=== PATIENT | male | born 1955 | race Caucasian/White ===

== ENCOUNTER 2017-09-25 18:13 | Emergency (ER) | payer SELFPAY ==
[2017-09-25 19:09] LABS: Hemoglobin 14.2 g/dL (14.0-18.0); Mean Corpuscular HGB CONC 34.2 g/dL (32.0-36.0); Mean Corpuscular Hemoglobin 37.1 pg (27.0-31.0); Mean Platelet Volume 6.8 fL (7.4-10.4); Platelet Count 156 thou/uL (130-400); Red Blood Cell (RBC) Count 3.83 mill/uL (4.70-6.10)
[2017-09-25 19:19] LABS: Bilirubin Negative (Negative); Blood, Urine Small (Negative); Clarity CLEAR (Clear); Glucose, Urine (Dipstick) Negative (Negative); Leukocyte Negative (Negative); Nitrite Negative (Negative); Protein, Urine (Dipstick) Negative (Neg-Trace); Specific Gravity, Urine 1.012 (1.002-1.036); Urobilinogen 0.2 mg/dL (0.2-1.0)
[2017-09-25 19:27] LABS: ALT (SGPT) 29 U/L (8-55); AST (SGOT) 40 U/L (5-34); Albumin 3.9 g/dL (3.4-4.8); Alkaline Phosphatase 116 U/L (40-150); Anion Gap 14 mmol/L (10-20); BUN (Urea Nitrogen) 6 mg/dL (8.4-25.7); Bilirubin, Total 0.7 mg/dL (0.2-1.2); CK (CPK) 180 U/L (30-200); Calc. Creatinine Clearance 0 mL/min (70-130); Calcium 8.7 mg/dL (7.8-10.44); Carbon Dioxide 25 mmol/L (23-31); Chloride 97 mmol/L (98-107); Eosinophils 2 % (0-10); Estimated GFR-MDRD Greater than 90; Globulin 2.9 g/dL (2.4-3.5); Glucose 108 mg/dL (80-115); Lipase 150 U/L (8-78); Lymphocytes 51 % (21-51); MDiff Complete? YES; Macrocytosis SLIGHT = 6-15 cells (100X) (0-5/hpf); Monocytes 3 % (0-10); Neutrophil 42 % (42-75); PLT Morphology Comment Appears Adequate; Potassium 3.7 mmol/L (3.5-5.1); Protein, Total 6.8 g/dL (5.8-8.1); Reactive Lymphocytes 2 % (0-10); Sodium 132 mmol/L (136-145)
[2017-09-25 19:31] LABS: RBC/HPF None Seen HPF (0-3); WBC/HPF None Seen HPF (0-3)
[2017-09-25 19:31] LABS: CKMB 5.2 ng/mL (0-6.6); Troponin I Less than 0.010 ng/mL (< 0.028)
[2017-09-25 19:32] LABS: Bacteria/HPF None Seen HPF (None Seen); Hyaline Casts/LPF NONE SEEN LPF (0-3 Hyaline); Squamous Epithelial 0-3 HPF (0-3)
--- NOTE | 2017-09-25 23:57 | RAD ---
PORTABLE CHEST ONE VIEW 09/25/17 at 11:43 p.m. HISTORY: Cough. FINDINGS: Comparison made with exam 12/01/16. The heart size is normal. The lungs are well expanded without focal areas of consolidation, pneumotho rax or pleural effusions. There are old left sided rib fractures. IMPRESSION: No acute process. POS: H
--- NOTE | 2017-10-13 22:42 | EKG ---
Test Reason : Blood Pressure : / mmHG Vent. Rate : 090 BPM Atrial Rate : 090 BPM P-R Int : 152 ms QRS Dur : 082 ms QT Int : 358 ms P-R-T Axes : 050 028 015 degrees QTc Int : 437 ms Normal sinus rhythm Normal ECG Confirmed by CELINA PRESTON ([id number]), market editor ROLAND MENDOZA ([id number]) on 10/13/2017 10:40:55 PM Referred By: Confirmed By:CELINA PRESTON
== END 2017-09-26 00:10 | disposition home or self-care (01) ==
LOC: ERS 18:13
DX: R55 Syncope and collapse (principal); F10.129 Alcohol abuse with intoxication, unspecified; F17.210 Nicotine dependence, cigarettes, uncomplicated; Y90.8 Blood alcohol level of 240 mg/100 ml or more
CPT/HCPCS: 36415; 71045; 80053; 81003; 81015; 82553; 83690; 84484; 85025; 93005; 94640; J7620

== ENCOUNTER 2017-10-05 16:00 | Outpatient (CLI) | payer SELFPAY | END 2017-10-05 16:01 | disposition home or self-care (01) | LOC: BICRAD 16:00 | PROVIDERS: ATTEND Internal Medicine | DX: Z02.71 Encounter for disability determination (principal); M47.896 Other spondylosis, lumbar region; I70.90 Unspecified atherosclerosis | CPT/HCPCS: 72100 ==

== ENCOUNTER 2018-02-20 09:23 | Emergency (ER) | payer SELFPAY ==
[2018-02-20 12:21] LABS: #Lymphocytes 2.4 thou/uL (1.20-3.40); #Monocytes 0.6 thou/uL (0.11-0.59); #Neutrophils 4.6 thou/uL (1.40-6.50); %Basophils 0.1 % (0.0-1.0); %Eosinophils 0.2 % (0.0-10.0); %Lymphocytes 31.4 % (21.0-51.0); %Monocytes 8.1 % (0.0-10.0); %Neutrophils 60.2 % (42.0-75.0); Hemoglobin 14.1 g/dL (14.0-18.0); Mean Corpuscular HGB CONC 34.3 g/dL (32.0-36.0); Mean Corpuscular Hemoglobin 34.6 pg (27.0-31.0); Mean Platelet Volume 7.4 fL (7.4-10.4); PLT Morphology Comment Appears Decreased; Platelet Count 77 thou/uL (130-400); RBC Distribution Width 13.1 % (11.5-14.5); RBC Morphology Normal; Red Blood Cell (RBC) Count 4.07 mill/uL (4.70-6.10); White Blood Cell (WBC) Count 7.7 thou/uL (4.8-10.8)
[2018-02-20 12:23] LABS: Bilirubin Negative (Negative); Blood, Urine Moderate (Negative); Clarity CLEAR (Clear); Glucose, Urine (Dipstick) Negative (Negative); Leukocyte Negative (Negative); Nitrite Negative (Negative); Protein, Urine (Dipstick) Negative (Neg-Trace); Specific Gravity, Urine 1.006 (1.002-1.036); Urobilinogen 0.2 mg/dL (0.2-1.0); pH, Urine 6.5 (5.0-9.0)
[2018-02-20 12:28] LABS: ALT (SGPT) 29 U/L (8-55); AST (SGOT) 51 U/L (5-34); Albumin 4.3 g/dL (3.4-4.8); Alkaline Phosphatase 158 U/L (40-150); Anion Gap 16 mmol/L (10-20); BUN (Urea Nitrogen) Less than 4 mg/dL (8.4-25.7); Bilirubin, Total 1.3 mg/dL (0.2-1.2); CK (CPK) 259 U/L (30-200); Calc. Creatinine Clearance 0 mL/min (70-130); Calcium 8.9 mg/dL (7.8-10.44); Carbon Dioxide 22 mmol/L (23-31); Chloride 95 mmol/L (98-107); Estimated GFR-MDRD Greater than 90; Globulin 3.2 g/dL (2.4-3.5); Glucose 110 mg/dL (80-115); Lipase 78 U/L (8-78); Protein, Total 7.5 g/dL (5.8-8.1); Sodium 130 mmol/L (136-145)
[2018-02-20 12:57] LABS: RBC/HPF None Seen HPF (0-3); Squamous Epithelial None Seen HPF (0-3); Transitional Epithelial NONE SEEN HPF (0-3); WBC/HPF None Seen HPF (0-3)
[2018-02-20 12:58] LABS: Bacteria/HPF None Seen HPF (None Seen); Hyaline Casts/LPF NONE SEEN LPF (0-3 Hyaline)
--- NOTE | 2018-02-20 13:05 | CT ---
CT LUMBAR SPINE NONCONTRAST: HISTORY: Worsening low back pain. FINDINGS: Minimal superior endplate depression at the L1 level has the appearance of a chronic process. No acu te fracture-dislocation. AP alignment is maintained. There is leftward convex rotatory scoliotic cu rvature on the coronal images. Prominent osteophytosis is present throughout the vertebral bodies an d facets. There is disk space narrowing and gas disk phenomenon at each level, with the exception of the lumbosacral junction. Central canal stenosis is most severe at the L4-L5 level. Foraminal sten oses are most severe on the right, at the L2-L3, L3-L4, and L4-L5 levels, and on the left, at the L3- L4 and L4-L5 levels. Calcification is apparent within the arterial structures. IMPRESSION: 1. Prominent degenerative changes of the lumbar spine, including severe central canal and foraminal stenosis. No evidence of acute compression injury. 2. Atherosclerosis. POS: YOSHI
== END 2018-02-20 13:05 | disposition home or self-care (01) ==
LOC: ERS 09:23
DX: M48.00 Spinal stenosis, site unspecified (principal); N39.43 Post-void dribbling; Z71.6 Tobacco abuse counseling; F17.290 Nicotine dependence, other tobacco product, uncomplicated
CPT/HCPCS: 36415; 51701; 72131; 80053; 81003; 81015; 82550; 83690; 85025; 99406

== ENCOUNTER 2018-03-22 17:55 | Inpatient (IN) | payer SELFPAY ==
[2018-03-22 19:03] LABS: Hemoglobin 12.2 g/dL (14.0-18.0); Mean Corpuscular HGB CONC 35.2 g/dL (32.0-36.0); Mean Corpuscular Hemoglobin 36.6 pg (27.0-31.0); Mean Platelet Volume 7.6 fL (7.4-10.4); Platelet Count 122 thou/uL (130-400); RBC Distribution Width 13.4 % (11.5-14.5); Red Blood Cell (RBC) Count 3.33 mill/uL (4.70-6.10); White Blood Cell (WBC) Count 20.6 thou/uL (4.8-10.8)
[2018-03-22] MEDS ORDERED: Piperacillin/Tazobactam 4.5 GM VIAL ONE (19:15)
[2018-03-22 19:20] LABS: ALT (SGPT) 18 U/L (8-55); AST (SGOT) 34 U/L (5-34); Albumin 3.2 g/dL (3.4-4.8); Alkaline Phosphatase 85 U/L (40-150); Anion Gap 16 mmol/L (10-20); BUN (Urea Nitrogen) 30 mg/dL (8.4-25.7); Bilirubin, Total 0.8 mg/dL (0.2-1.2); Calc. Creatinine Clearance 0 mL/min (70-130); Calcium 8.4 mg/dL (7.8-10.44); Carbon Dioxide 19 mmol/L (23-31); Chloride 84 mmol/L (98-107); Estimated GFR-MDRD 42; Globulin 3.2 g/dL (2.4-3.5); Glucose 106 mg/dL (80-115); Protein, Total 6.4 g/dL (5.8-8.1)
[2018-03-22 19:22] LABS: Band 18 % (5-11); Lymphocytes 1 % (21-51); MDiff Complete? YES; Monocytes 3 % (0-10); Neutrophil 77 % (42-75); PLT Morphology Comment Appears Decreased; Reactive Lymphocytes 1 % (0-10); Vacuoles SLIGHT
[2018-03-22 19:23] LABS: Potassium 2.4 mmol/L (3.5-5.1); Sodium 117 mmol/L (136-145)
[2018-03-22] MEDS ORDERED: Potassium Chloride 20 MEQ TAB ONE (19:39)
[2018-03-22] MEDS ORDERED: Clindamycin/D5W 900 mg/50 ml Premix Bag ONE (19:52)
[2018-03-22 22:55] LABS: Lactic Acid 2.4 mmol/L (0.5-2.2)
[2018-03-22] MEDS ORDERED: Diazepam 5 MG TAB PO PRN (23:26)
[2018-03-22] MEDS ORDERED: Diazepam 5 MG TAB PO SCH (23:30)
[2018-03-22] MEDS ORDERED: Thiamine HCl 200 MG/2 ML VIAL IM SCH (23:30)
[2018-03-22] MEDS ORDERED: Ondansetron HCl/PF 4 MG/2 ML Vial IVP PRN (23:53)
[2018-03-22] MEDS ORDERED: Piperacillin/Tazobactam 3.375 GM in Sodium Chloride 0.9% 100 ML IVPB SCH (23:59)
[2018-03-23] MEDS ORDERED: Potassium Chloride 20 MEQ TAB PO SCH ×2 (00:30→05:30)
[2018-03-23] MEDS: Acetaminophen 325 MG TAB PO PRN ×3 (00:46→20:45)
[2018-03-23] MEDS: Sodium Chloride 0.9% 1,000 ML IV SCH ×2 (01:20→23:10)
[2018-03-23] MEDS ORDERED: Diazepam 5 MG TAB PO PRN (04:00)
[2018-03-23] MEDS: Piperacillin/Tazobactam 3.375 GM in Sodium Chloride 0.9% 100 ML IVPB SCH ×4 (04:19→20:45)
[2018-03-23 04:22] LABS: Anisocytosis SLIGHT = 6-15 cells (100X) (0-5/hpf); Band 26 % (5-11); Hemoglobin 11.1 g/dL (14.0-18.0); Lymphocytes 5 % (21-51); MDiff Complete? YES; Mean Corpuscular HGB CONC 34.6 g/dL (32.0-36.0); Mean Corpuscular Hemoglobin 36.4 pg (27.0-31.0); Mean Platelet Volume 8.2 fL (7.4-10.4); Metamyelocyte 2 % (0-0); Monocytes 10 % (0-10); Neutrophil 57 % (42-75); PLT Morphology Comment Appears Decreased; Platelet Count 113 thou/uL (130-400); RBC Distribution Width 13.6 % (11.5-14.5); Red Blood Cell (RBC) Count 3.05 mill/uL (4.70-6.10); White Blood Cell (WBC) Count 18.6 thou/uL (4.8-10.8)
[2018-03-23 04:23] LABS: Anion Gap 12 mmol/L (10-20); Anion Gap 13 mmol/L (10-20); BUN (Urea Nitrogen) 27 mg/dL (8.4-25.7); Bilirubin, Direct 0.7 mg/dL (0.1-0.3); Calc. Creatinine Clearance 79 mL/min (70-130); Calcium 7.9 mg/dL (7.8-10.44); Carbon Dioxide 20 mmol/L (23-31); Chloride 91 mmol/L (98-107); Estimated GFR-MDRD 64; Glucose 108 mg/dL (80-115); Glucose 109 mg/dL (80-115); Magnesium 1.2 mg/dL (1.6-2.6); Sodium 120 mmol/L (136-145); Sodium 121 mmol/L (136-145)
[2018-03-23 04:38] LABS: Potassium 2.9 mmol/L (3.5-5.1)
--- NOTE | 2018-03-23 04:50 | HP ---
CODE STATUS: Patient is a FULL CODE. PRIMARY CARE PHYSICIAN: The patient goes to the [facility]. TIME OF EVALUATION: 9:00 p.m. CHIEF COMPLAINT: Left upper arm swelling and pain. HISTORY OF PRESENT ILLNESS: This is a 62-year-old male patient with past medical history of depression, alcohol abuse, who came to the hospital after having left upper extremity swelling, associated with pain, decreased range of motion, swelling, redness. Patient also has blisters and excoriations on that area, he reported that he had symptoms for the past few days. He tried to cure it by himself, but it did not get better. For that reason, he was taken to the hospital. Symptoms are severe. REVIEW OF SYSTEMS: Constitutional: No fever, no chills, generalized weakness. Respiratory: No cough, no sputum production. Cardiovascular: No chest pain , palpitations, shortness of breath. Gastrointestinal: No nausea, no vomiting , diarrhea or abdominal pain. SWINE EXTENSION FIELD SPECIALIST: No dizziness, headache, lightheaded. Genitourinary: No burning with urination. Extremities: The patient has left upper extremity swelling, redness, decreased range of motion, tenderness. All other systems reviewed were negative except for the findings mentioned above. PAST MEDICAL HISTORY: No significant medical history reported. FAMILY HISTORY: Father in an accident, had a history of COPD; mother unknown. SURGICAL HISTORY: History of tonsillectomy. PSYCHIATRIC HISTORY: Depression. SOCIAL HISTORY: Drinks every day, less than 5 drinks per day. Patient smoked on a daily basis, drinks socially, rarely. DRUG ALLERGIES: No known drug allergies. REPORTED MEDICATIONS: Tylenol. PHYSICAL EXAMINATION: VITAL SIGNS: On presentation, blood pressure 102/61, heart rate 118, respiratory rate was 18, temperature: 97.7. GENERAL: Patient is alert, oriented, not in acute distress. HEENT: Eyes, Normal conjunctivae, moist oral mucosa, anicteric. NECK: No JVD. RESPIRATORY: Bilateral air entry. No rales. No wheezes or medication management. CARDIOVASCULAR: Normal rate, regular rhythm. No murmurs, no gallop. No edema. ABDOMEN: Soft, normal bowel sounds. MUSCULOSKELETAL: Baseline range of motion and strength. No tenderness. SKIN: Warm and intact without rash except for the left upper extremity that has significant swelling, redness, blisters, tenderness, decreased range of motion in that extremity. NEUROLOGIC: Baseline sensory. No evidence of any new focal weakness. Sensation in the arm is preserved. Cranial nerves seem to be intact. PSYCHIATRIC: No anxiety. Oriented, optimal judgment. LABORATORY DATA: Reviewed. The patient had a white count of 20, hemoglobin 12 , MCV 104, platelet count 122, neutrophils 77, bands 18. Sodium 117, potassium 2.4, chloride 84, carbon dioxide was 19, anion gap 16, BUN 30, creatinine 1.65 when compared with previous values on records. It is very elevated, initially was 0.6, BUN 30. Lactic acid initially 2.6 and down to 2.4 after initial treatment. ASSESSMENT AND PLAN: The patient was placed in the hospital with the following medical problems. 1. Sepsis. The patient has white count of 20. Patient has tachycardia as well as left upper extremity cellulitis. We will treat with broad spectrum antibiotics, follow cultures,adjust treatment as per sensitivity. 2. Left upper extremity cellulitis, has been present for the past few days, we will cover with broad spectrum antibiotics. 3. History of alcohol abuse, but patient initially refused it. He now admits he drinks 4 beers every day. We will put the patient and daily watch for alcohol withdrawal. 4. Severe hyponatremia with sodium of 117. He has no symptoms, likely this is chronic and we will start hydration and attempt to correct the sodium at a rate of 6 mEq in 24 hours. We will monitor BMP q.6h. 5. Moderate hypokalemia, potassium 2.4, replace electrolytes as needed, likely due to chronic alcoholism. 6. Acute kidney injury with creatinine 1.65, the last one was 0.6. Likely due to dehydration, we will hydrate, we will monitor, we will treat accordingly. We will monitor kidney function, if not improving, might need Nephrology for evaluation. 7. Lactic acidosis likely secondary to sepsis might be also secondary underlying undiagnosed cirrhosis from alcoholism that remains as a possibility. We will treat the underlying condition. 8. Deep venous thrombosis prophylaxis. MTDD
[2018-03-23 05:19] LABS: Amphetamine Not Detected (NotDetected); Barbiturates Screen Not Detected (NotDetected); Benzodiazepine Screen Not Detected (NotDetected); Cocaine Metabolite Screen Not Detected (NotDetected); Medtox Control Line Valid? VALID (VALID); Medtox Reader # READER 4; Methadone Not Detected (NotDetected); Methamphetamine Not Detected (NotDetected); Opiate Screen Not Detected (NotDetected); Oxycodone Screen Not Detected (NotDetected); Phencyclidine (PCP) Not Detected (NotDetected); THC/Cannabinoid Screen Not Detected (NotDetected); Tricyclic Screen Not Detected (NotDetected)
[2018-03-23 05:30] LABS: Syphilis Antibody Nonreactive (Nonreactive); Syphilis Antibody Index 0.02 S/CO (<1.00 Non-Reactive)
[2018-03-23] MEDS ORDERED: Magnesium Sulfate 2 GM in Sodium Chloride 0.9% 100 ML IVPB SCH (05:30)
[2018-03-23] MEDS: Folic Acid 1 MG TAB PO SCH (09:29)
[2018-03-23] MEDS: Magnesium Oxide 400 MG TAB PO SCH (09:29)
[2018-03-23] MEDS: Multivitamin W/ Minerals 1 TAB PO SCH (09:29)
[2018-03-23] MEDS: Vancomycin HCl 1.5 GM in Sodium Chloride 0.9% 250 ML 300 ML IVPB SCH (09:31)
[2018-03-23 09:57] LABS: Anion Gap 14 mmol/L (10-20); BUN (Urea Nitrogen) 24 mg/dL (8.4-25.7); Calc. Creatinine Clearance 88 mL/min (70-130); Calcium 8.4 mg/dL (7.8-10.44); Carbon Dioxide 19 mmol/L (23-31); Chloride 93 mmol/L (98-107); Estimated GFR-MDRD 72; Glucose 94 mg/dL (80-115); Potassium 3.6 mmol/L (3.5-5.1); Sodium 122 mmol/L (136-145)
--- NOTE | 2018-03-23 13:33 | PDOC.PN ---
- Subjective Encounter Start Date: 03/23/18 Encounter Start Time: 07:40 Pt seen for followup re: sepsis. Denies chest pain, shortness of breath, fevers or chills. No nausea or vomiting. - Objective Resuscitation Status: Resuscitation Status FULL:Full Resuscitation MAR Reviewed: Yes Vital Signs & Weight: Vital Signs (12 hours) Temp Pulse Resp BP BP Pulse Ox 03/23/18 08:00 97.7 F 98 16 100/56 L 99 03/23/18 04:00 98.3 F 102 H 20 94/61 94/61 95 Weight Admit Weight 186 lb 6.4 oz Weight 185 lb 12.8 oz I&O: 03/22/18 03/23/18 03/24/18 06:59 06:59 06:59 Intake Total 1181 Output Total 200 Balance 981 Result Diagrams: 03/23/18 03:42 03/23/18 09:22 EKG Reviewed by me: Yes (Tele: sinus tachycardia) Phys Exam - Physical Examination Constitutional: NAD HEENT: moist MMs, sclera anicteric, oral pharynx no lesions, 2+ tonsils Neck: no nodes, no JVD, supple, full ROM Respiratory: no wheezing, no rales, no rhonchi, clear to auscultation bilateral Cardiovascular: RRR, no rub S1, S2 Gastrointestinal: soft, non-tender, no distention, positive bowel sounds Neurological: moves all 4 limbs Psychiatric: normal affect Deviation from normal: Oriented to person and place, not to time Deviation from normal: L forearm cellulitis Dx/Plan (1) Sepsis Code(s): A41.9 - SEPSIS, UNSPECIFIED ORGANISM Status: Acute Comment: likely due to cellulitis (2) Cellulitis Code(s): L03.90 - CELLULITIS, UNSPECIFIED Status: Acute Comment: continue IV antibiotics as below (3) Hyponatremia Code(s): E87.1 - HYPO-OSMOLALITY AND HYPONATREMIA Status: Acute Comment: Improving, continue IV fluids as below, continue to monitor lytes (4) Hypomagnesemia Code(s): E83.42 - HYPOMAGNESEMIA Status: Acute Comment: replace magnesium (5) Hypokalemia Code(s): E87.6 - HYPOKALEMIA Status: Resolved (6) GIANNA (acute kidney injury) Code(s): N17.9 - ACUTE KIDNEY FAILURE, UNSPECIFIED Status: Resolved - Plan * . Review of Systems - Review of Systems Constitutional: negative: fever, chills, sweats, weakness, malaise Respiratory: negative: Cough, Shortness of Breath, SOB with Excertion, Pleuritic Pain, Wheezing Cardiovascular: negative: chest pain, palpitations, orthopnea, paroxysmal nocturnal dyspnea, edema, light headedness Gastrointestinal: negative: Nausea, Vomiting, Abdominal Pain, Diarrhea, Constipation, Melena, Hematochezia Genitourinary: negative: Dysuria, Frequency, Incontinence, Hematuria, Retention Skin: Rash. negative: Lesions, Jean, Bruising Neurological: negative: Weakness, Numbness, Incoordination, Change in Speech, Confusion, Seizures - Medications/Allergies Allergies/Adverse Reactions: Allergies Allergy/AdvReac Type Severity Reaction Status Date / Time No Known Drug Allergies Allergy Verified 03/22/18 23:06 Medications: Current Medications Acetaminophen (Tylenol) 650 mg PO Q4H PRN PRN Reason: Headache/Fever or Pain Last Admin: 03/23/18 09:30 Dose: 650 mg Albuterol/Ipratropium (Duoneb) 3 ml NEB Q4H PRN PRN Reason: WHEEZE/DYSPNEA Last Admin: 03/22/18 23:34 Dose: 3 ml Diazepam (Valium) 5 mg PO Q4H PRN PRN Reason: FOR ASE 10 OR GREATER Folic Acid (Folvite) 1 mg PO DAILY [facility] Last Admin: 03/23/18 09:29 Dose: 1 mg Sodium Chloride (Normal Saline 0.9%) 1,000 mls @ 75 mls/hr IV .[id number] [facility] Last Admin: 03/23/18 01:20 Dose: 1,000 mls Vancomycin HCl 1.5 gm/ Sodium (Chloride) 300 mls @ 200 mls/hr IVPB 0900 [facility] Last Admin: 03/23/18 09:31 Dose: 300 mls Piperacillin Sod/Tazobactam (Sod 3.375 gm/ Sodium Chloride) 100 mls @ 200 mls/ hr IVPB 0300,0900,1500,2100 [facility] Last Admin: 03/23/18 09:30 Dose: 100 mls Iron/Minerals/Multivitamins (Theragran M) 1 tab PO DAILY [facility] Last Admin: 03/23/18 09:29 Dose: 1 tab Magnesium Oxide (Magnesium Oxide) 400 mg PO DAILY [facility] Last Admin: 03/23/18 09:29 Dose: 400 mg Ondansetron HCl (Zofran) 4 mg IVP Q6H PRN PRN Reason: Nausea/Vomiting Thiamine HCl (Thiamine) 100 mg PO DAILY [facility] Last Admin: 03/23/18 09:30 Dose: 100 mg
[2018-03-23 15:48] LABS: Anion Gap 13 mmol/L (10-20); BUN (Urea Nitrogen) 22 mg/dL (8.4-25.7); Calc. Creatinine Clearance 96 mL/min (70-130); Calcium 8.3 mg/dL (7.8-10.44); Carbon Dioxide 20 mmol/L (23-31); Chloride 98 mmol/L (98-107); Estimated GFR-MDRD 80; Glucose 122 mg/dL (80-115); Potassium 3.5 mmol/L (3.5-5.1); Sodium 127 mmol/L (136-145)
[2018-03-23 21:48] LABS: Anion Gap 14 mmol/L (10-20); BUN (Urea Nitrogen) 19 mg/dL (8.4-25.7); Calc. Creatinine Clearance 104 mL/min (70-130); Carbon Dioxide 17 mmol/L (23-31); Chloride 101 mmol/L (98-107); Estimated GFR-MDRD 88; Glucose 135 mg/dL (80-115); Potassium 3.6 mmol/L (3.5-5.1); Sodium 128 mmol/L (136-145)
[2018-03-24] MEDS: Acetaminophen 325 MG TAB PO PRN (02:32)
[2018-03-24] MEDS: Piperacillin/Tazobactam 3.375 GM in Sodium Chloride 0.9% 100 ML IVPB SCH ×2 (03:40→08:19)
[2018-03-24] MEDS: Sodium Chloride 0.9% 1,000 ML IV SCH ×2 (03:44→17:47)
[2018-03-24 05:21] LABS: Anion Gap 10 mmol/L (10-20); BUN (Urea Nitrogen) 14 mg/dL (8.4-25.7); Calc. Creatinine Clearance 117 mL/min (70-130); Calcium 8.1 mg/dL (7.8-10.44); Carbon Dioxide 19 mmol/L (23-31); Chloride 103 mmol/L (98-107); Estimated GFR-MDRD Greater than 90; Glucose 108 mg/dL (80-115); Potassium 3.2 mmol/L (3.5-5.1); Sodium 129 mmol/L (136-145)
[2018-03-24] MEDS: Folic Acid 1 MG TAB PO SCH (08:19)
[2018-03-24] MEDS: Magnesium Oxide 400 MG TAB PO SCH (08:19)
[2018-03-24] MEDS: Multivitamin W/ Minerals 1 TAB PO SCH (08:19)
[2018-03-24 09:02] LABS: Vancomycin, Trough 9.6 ug/mL
[2018-03-24 09:19] LABS: Band 25 % (5-11); Hemoglobin 11.7 g/dL (14.0-18.0); Lymphocytes 7 % (21-51); MDiff Complete? YES; Macrocytosis SLIGHT = 6-15 cells (100X) (0-5/hpf); Mean Corpuscular HGB CONC 33.8 g/dL (32.0-36.0); Mean Corpuscular Hemoglobin 36.3 pg (27.0-31.0); Mean Platelet Volume 7.8 fL (7.4-10.4); Monocytes 5 % (0-10); Neutrophil 63 % (42-75); PLT Morphology Comment Appears Adequate; Platelet Count 156 thou/uL (130-400); RBC Distribution Width 13.9 % (11.5-14.5); Red Blood Cell (RBC) Count 3.21 mill/uL (4.70-6.10); White Blood Cell (WBC) Count 23.3 thou/uL (4.8-10.8)
[2018-03-24] MEDS ORDERED: Potassium Chloride 20 MEQ TAB PO SCH (10:00)
[2018-03-24] MEDS: Vancomycin HCl 1.5 GM in Sodium Chloride 0.9% 250 ML 300 ML IVPB SCH (11:09)
[2018-03-24] MEDS ORDERED: Ondansetron HCl/PF 4 MG/2 ML Vial IVP PRN (12:26)
--- NOTE | 2018-03-24 12:36 | RAD ---
CHEST 1 VIEW: COMPARISON: 09/25/17. HISTORY: Not provided. FINDINGS: Normal cardiac silhouette. Lungs and pleural spaces are clear. No pneumothorax. Chronic changes to the anterior left and posterior left ribs. IMPRESSION: No acute cardiopulmonary process. POS: GRAY
[2018-03-24] MEDS ORDERED: Fentanyl 100 MCG/2 ML VIAL ONE (13:09)
--- NOTE | 2018-03-24 14:20 | PRG ---
DATE OF SERVICE: 03/24/2018 SUBJECTIVE: The patient is seen and examined at the bedside. He had two big pauses on his cardiac f unction this morning when he was drinking his coffee and he had one pause, which lasted about 6 secon ds and the other one was 2.9 seconds. He complains about pain in his left upper extremity. OBJECTIVE: VITAL SIGNS: Blood pressure is 145/57, pulse is 87, respiratory rate is 20, and O2 saturation is 100 %. HEENT: Head is atraumatic, normocephalic. Eyes are PERRLA. Conjunctivae pink. Oral mucosa is mois t. NECK: Supple. LUNGS: Clear. HEART: S1 and S2 normal. No S3 or S4. ABDOMEN: Soft, distended. Bowel sounds are present, no organomegaly. EXTREMITIES: His left upper extremity swollen is blistered with erythema all the way to the axilla. NEUROLOGIC: Revealed he is alert and oriented x4. There is no any motor deficits. Cranial nerves a re intact. LABORATORY DATA: Showed white count of 23.3, hemoglobin of 11.7, hematocrit 34.5, platelet count is 156,000, and 25 bands. His sodium of 129, potassium 3.2, CO2 is 19, BUN 14, creatinine 0.78, glucose 108. Vancomycin trough 9.6. Blood cultures no growth at 48 hours x2. Chest x-ray done today, did not show any acute abnormalities. IMPRESSION: 1. Left upper extremity erythema/swelling with blisters suspicious for necrotizing fasciitis. I liam led general surgeon Dr. Haque and we made the patient n.p.o., and he will come and evaluate him for possible surgical intervention. 2. Sepsis. 3. Hyponatremia. 4. Hypomagnesemia. 5. Hypokalemia. 6. Two cardiac pauses. The patient will be moved to CCU and pacer pads are going to be placed on hi m as we speak. 7. Acute kidney injury, resolved. 8. Microcytic anemia. We will check his vitamin B12 level and folic acid and methylmalonic acid and homocysteine.
--- NOTE | 2018-03-24 14:25 | HP ---
HISTORY OF PRESENT ILLNESS: This is a 62-year-old male patient admitted by Hospitalist Service on at 3:00 in the morning. I have been asked to see him this morning 03/24/2018. I was called by this morning concerned about his left arm. The patient has progressive blistering and ecchymosis about his mid forearm. There is concern about necrotizing fasciitis. Patient states he t hinks injured this on his crutches. He is on crutches for the last five years due to lower extremity weakness. He states he has been and workup has been slow, although he recently had imaging at [facility] in the last week and is seen by Dr. Clark. The patient was transferred to the ICU. Heart rate 87, 97.6 degrees. Blood cultures negative to date. Sodium 129 up from 121 on admission, potassium 3.2 up from 2.9 on admission. BUN and creatinine 14 and 0.78 currently, on admission 27 an d 1.16. Magnesium is low. White count is 23,000 up from 20,000 on admission, hemoglobin 11.7. He h as 25% bands. ALLERGIES: None. SOCIAL HISTORY: Tobacco abuse. He smokes cigars and cigarettes. ALCOHOL, he consumes 4 beers a day , 16 ounces each beverage. PAST MEDICAL HISTORY: Lower extremity weakness ambulatory on crutches undergoing workup having had w hat I think is a CT scan of the lumbar spine at [facility] recently for followup with Dr. Eduardo jernigan. Tobacco abuse, alcoholism. PAST SURGICAL HISTORY: Tonsillectomy. FAMILY HISTORY: Unknown. REVIEW OF SYSTEMS: Ten point noncontributory. PHYSICAL EXAMINATION: VITAL SIGNS: 5 foot, 8, 85 pounds, 28 BMI, 97.6 degrees, 87, respiratory rate 18, 113/70. HEENT: Unremarkable. LUNGS: Clear to auscultation, no wheezing. CARDIAC: Regular rate and rhythm. ABDOMEN: Soft, nontender, slightly protuberant, palpable femoral, popliteal, pedal pulses. No ankle edema. Left upper extremity reveals cellulitis wrist upper arm. He has ecchymosis and blistering b ullae, anteromedial left forearm. He has blistering skin wrist to elbow. ASSESSMENT AND PLAN: 1. Severe infection, left arm, possibly necrotizing fasciitis. This appears to be some fluctuance o n exam beneath the ecchymotic area described. Would plan incision and drainage and procedures indica luis based on operative findings. Would also plan to place a central line. He has a PICC line in his right basilic. He will need IV access, multiple ports 2. Tobacco abuse. 3. Alcoholism. 4. Likely spinal stenosis.
[2018-03-24 14:34] LABS: Folate (Folic Acid) 13.1 ng/mL (7.0-31.4)
[2018-03-24] MEDS ORDERED: Ibuprofen 600 MG TAB PO PRN (14:51)
[2018-03-24] MEDS ORDERED: PHENYLEPHRINE-NS 100 MCG/ML 10 ML SYRINGE ONE (14:52)
[2018-03-24] MEDS ORDERED: Glycopyrrolate 0.2 MG/ML 5 ML SYRINGE ONE (14:52)
[2018-03-24] MEDS ORDERED: Lidocaine 1% PF 5 ML VIAL ONE (14:52)
[2018-03-24] MEDS ORDERED: PROPOFOL 200 MG/20 ML VIAL ONE (14:52)
[2018-03-24] MEDS ORDERED: Dexamethasone 20 MG/5 ML VIAL ONE (14:52)
[2018-03-24] MEDS ORDERED: Succinylcholine Chloride 20 MG/ML 10 ml SYRINGE FS ONE (14:52)
--- NOTE | 2018-03-24 15:41 | RAD ---
FRONTAL VIEW CHEST: COMPARISON: 03/24/18. INDICATION: Central line placement evaluation. FINDINGS: There is a right subclavian venous catheter tip overlying the cavoatrial junction. There is mild dallin nting of the left costophrenic sulcus which may relate to a small volume of pleural fluid. There are several left rib deformities present. No additional significant interval change. IMPRESSION: 1. Central line placement on the right as above, without evidence of a significant postprocedure pne umothorax. 2. Left rib deformities. POS: [facility]
[2018-03-24] MEDS ORDERED: SUGAMMADEX SODIUM 500 MG/5 ML VIAL ONE (15:43)
[2018-03-24] MEDS ORDERED: SUGAMMADEX SODIUM 200 MG/2 ML VIAL ONE (15:43)
--- NOTE | 2018-03-24 16:45 | OP ---
PREOPERATIVE DIAGNOSES: Necrotizing fasciitis, left arm, poor IV access, multifocal abscesses extens jose. POSTOPERATIVE DIAGNOSES: Necrotizing fasciitis, left arm, poor IV access, multifocal abscesses exten sive, malfunctioning PICC line, malfunctioning right hand IV. PROCEDURES: 1. Right subclavian vein triple lumen catheter. 2. Extensive debridement of skin and subcutaneous tissue, left forearm. 3. Debridement of devitalized tissue with sharp excisional 10 blade. 4. Extensive drainage of abscess, left arm extending from the mid upper arm medially to the forearm to the distal wrist with multiple counter incisions, pulse irrigation of wound. SURGEON: Dr. Juan Haque ANESTHESIA: General. PROCEDURE: The patient was taken to the operating room where under general anesthesia, neck, chest a nd left arm, axilla prepared with ChloraPrep, draped in routine fashion. Sterile technique used to p lace right subclavian vein central line in Seldinger technique, securing the catheter with silk sutur e and Biopatch sterile dressing applied. Each port aspirated blood and flushed with saline solution. PICC line and hand IV removed as they were nonfunctional. Patient had an extensive abscess in his left arm extending from his wrist to the upper arm. This was most fluctuant in the proximal anteromedial forearm, but underneath the devitalized segment of skin measured about 8 cm2. There was ecchymotic and blistering throughout the forearm and upper arm. Hen ce, this devitalized skin was excised, unroofing a very large abscess with copious amounts of purulen t material extending from the upper arm to the wrist. This was cultured and then evacuated and devit alized skin and subcutaneous tissues excised. Hemostasis gained with the cautery. Counter incisions were made in the upper medial arm and in the posterior medial elbow area where it extended. A count er incision was made in the form distally. Pulse irrigation performed, devitalized subcutaneous tiss ue and skin excised sharply 10 blade; excisional, resectional. Wound care team arrived to place a wo und VAC. Patient tolerated the procedure well.
[2018-03-24] MEDS: Cefepime 2 GM in Sodium Chloride 0.9% 100 ML IVPB SCH ×2 (18:04→23:17)
[2018-03-24] MEDS: Vancomycin HCl 1.25 GM in Sodium Chloride 0.9% 250 ML 250 ML IVPB SCH (20:32)
[2018-03-24] MEDS: Enoxaparin Sodium 40 MG/0.4 ML SYRINGE SC SCH (20:32)
--- NOTE | 2018-03-24 22:59 | CON ---
DATE OF CONSULTATION: 03/24/2018 Critical care note time is 30 minutes. HISTORY OF PRESENT ILLNESS: The patient is a 62-year-old gentleman who was admitted with necrotizing fasciitis and was noted to have a very slow heart rate. The patient has no previous cardiac history. He denies having any history of lightheadedness or dizziness. The patient denies having any history of chest discomfort. He was admitted with severe left upper arm swelling. The patient on telemetry was noted to have a very slow heart rate. He did not feel lightheaded or lose consciousness. The patient was taken to the operating room and underwent debridement. PAST MEDICAL HISTORY: None. PAST SURGICAL HISTORY: Tonsillectomy. SOCIAL HISTORY: He has a long history of tobacco and ethanol abuse. PHYSICAL EXAMINATION: GENERAL: This is an ill-appearing gentleman with a blood pressure of 134/63. NECK: No jugular venous distention. LUNGS: Coarse breath sounds bilateral. HEART: Regular rate and rhythm. Normal S1, S2. ABDOMEN: Distended. EXTREMITIES: His left arm is bandaged. LABORATORY DATA: His white blood cell count 23.3, hemoglobin 11.7, hematocrit 34.5, platelets 156. Sodium 129, potassium 3.2, chloride 103, bicarbonate 19, BUN 14, creatinine 0.78. EKG revealed normal sinus rhythm. Normal ECG. His quality assurance monitor chassis revealed third-degree AV block with prolonged pause. IMPRESSION: 1. Prolonged third-degree AV block. 2. Status post debridement for necrotizing fasciitis. 3. Tobacco use. 4. Ethanol abuse. This gentleman presented with asymptomatic third-degree AV block. We will ask EP to evaluate the patient. He is being treated with IV antibiotics. If he becomes symptomatic, he will need to have placement of a temporary pacemaker. We will follow this patient with you through the hospitalization. We will apply the transcutaneous pacemaker leads to the patient's chest. EROS
--- NOTE | 2018-03-25 04:31 | CON ---
DATE OF CONSULTATION: 03/24/2018 PULMONARY CONSULT Mr. Berg is a 62-year-old male. He says he fell and hurt his left arm within last month. He is walking on crutches because he says reece hill has had progressive problems with his lower extremities going back several years as many as 4. He says all of his symptoms of his legs started with swelling in his legs, but it is actually gradual ly developed and difficulty using his leg, so he walks on crutches. He does not seek routine medical care, although recently going through the process of trying to get disability through disability [employer]. He was admitted on 03/23/2018 at 3:00 in the morning with left upper extremity erythema and swelling. I am told the wound care recommended consultation yesterday for General Surgery. This was done this morning by the hospitalist, Dr. Haque seen him, when I saw him. Very pleasant gentleman, but clearly talking to him, does not seek much medical care. PAST MEDICAL HISTORY: Remarkable for tobacco use and chronic obstructive pulmonary disease. He has a tonsillectomy in the past. He drinks four 16-ounce beers a day. He smokes four cigars a day. ALLERGIES: He reports no drug allergies. SOCIAL HISTORY: He is not . 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 REVIEW OF SYSTEMS: Ten points otherwise negative with the exception of the complaints surrounding hi s lower extremities. PHYSICAL EXAMINATION: VITAL SIGNS: This morning, he is afebrile, heart rate is 81, respiratory rate 16, oximetry is 96, bl ood pressure 112/62. HEENT: Pupils are equal. Sclerae is anicteric. He has multiple sebaceous cysts just lateral to his lateral margin of his left eye, fairly-disheveled appearing. NECK: Supple. LUNGS: Clear. HEART: Regular rhythm. S1 and S2 are distant. ABDOMEN: Soft and nontender. EXTREMITIES: Without asymmetry. He has excellent pulses in his feet. Left upper extremity exam was remarkable for significant erythema from the elbow down with peeling and blistered skin medially. LABORATORY AND DIAGNOSTIC DATA: Chest radiograph shows no alveolar infiltrates. Central line was pl aced by Dr. Haque in the operating room today. White count is 23.3, hemoglobin 11.7, platelets 156,000. He had 25% bands on his peripheral smear. Sodium 129, potassium 3.2, chloride 103, bicarb 19, BUN 40, creatinine 0.78. IMPRESSION: Left arm abscess versus necrotizing fasciitis. Dr. Hqaue recommended an operation and he subsequently has been debrided from what I have been told from the elbow down. We will continue w [facility] wound care and supportive care per General Surgery. From a pulmonary standpoint, he is stable at time of this dictation. This is a 70-minute consult, greater than 50% of the time was spent in coordinating care.
[2018-03-25 06:27] LABS: ALT (SGPT) 18 U/L (8-55); AST (SGOT) 24 U/L (5-34); Albumin 2.8 g/dL (3.4-4.8); Alkaline Phosphatase 107 U/L (40-150); Anion Gap 12 mmol/L (10-20); BUN (Urea Nitrogen) 12 mg/dL (8.4-25.7); Bilirubin, Total 0.5 mg/dL (0.2-1.2); Calc. Creatinine Clearance 132 mL/min (70-130); Calcium 8.2 mg/dL (7.8-10.44); Carbon Dioxide 21 mmol/L (23-31); Chloride 101 mmol/L (98-107); Estimated GFR-MDRD Greater than 90; Globulin 2.8 g/dL (2.4-3.5); Glucose 130 mg/dL (80-115); Potassium 3.6 mmol/L (3.5-5.1); Protein, Total 5.6 g/dL (5.8-8.1); Sodium 130 mmol/L (136-145)
[2018-03-25 06:46] LABS: Band 30 % (5-11); Hemoglobin 9.2 g/dL (14.0-18.0); Lymphocytes 6 % (21-51); MDiff Complete? YES; Mean Corpuscular HGB CONC 34.1 g/dL (32.0-36.0); Mean Corpuscular Hemoglobin 36.1 pg (27.0-31.0); Monocytes 4 % (0-10); Neutrophil 60 % (42-75); Platelet Count 196 thou/uL (130-400); RBC Distribution Width 14.1 % (11.5-14.5); Red Blood Cell (RBC) Count 2.55 mill/uL (4.70-6.10); White Blood Cell (WBC) Count 15.5 thou/uL (4.8-10.8)
[2018-03-25] MEDS: Sodium Chloride 0.9% 1,000 ML IV SCH ×2 (07:26→08:41)
--- NOTE | 2018-03-25 07:52 | PRG ---
DATE OF SERVICE: 03/25/2018 Leopoldo Berg looks good post-debridement. He is sitting in the chair. He says he feels much zara r than yesterday. PHYSICAL EXAMINATION: VITAL SIGNS: Heart rates in the 80s, blood pressure 120/68, respiratory rates in the teens to low 20 s, oximetry is 97-100%. LUNGS: Lungs are clear. HEART: Regular rhythm. ABDOMEN: Abdomen is soft. EXTREMITIES: His left upper extremity is bandaged. LABORATORY DATA: White count down to 15.5, hemoglobin is 9.2, platelets 196,000. Sodium 130, potassium 3.6, chloride 101, bicarbonate 21, BUN 12, creatinine 0.6. Cultures are pendin g. IMPRESSION: Necrotizing fasciitis of his left upper extremity, status post debridement. PLAN: Continue supportive care and antimicrobial therapy. He is probably stable to move out of the Critical Care Unit later today if surgery agrees unless another surgery is planned.
[2018-03-25] MEDS: Cefepime 2 GM in Sodium Chloride 0.9% 100 ML IVPB SCH ×2 (08:42→16:14)
[2018-03-25] MEDS: Multivit, Therapeutic 1 TAB PO SCH (08:42)
[2018-03-25] MEDS: Multivitamin W/ Minerals 1 TAB PO SCH (08:42)
[2018-03-25] MEDS: Folic Acid 1 MG TAB PO SCH (08:42)
[2018-03-25] MEDS: Zinc Sulfate 220 MG CAP PO SCH (08:42)
[2018-03-25] MEDS: Magnesium Oxide 400 MG TAB PO SCH (08:42)
[2018-03-25] MEDS: Vancomycin HCl 1.25 GM in Sodium Chloride 0.9% 250 ML 250 ML IVPB SCH ×2 (08:43→21:52)
[2018-03-25 11:15] LABS: HIV (1/2) Antibody/Antigen Non-Reactive (NonReactive); Hep C IgG Ab Non-Reactive (NonReactive); Hep C Index 0.05 S/CO (0-0.79)
--- NOTE | 2018-03-25 12:43 | PRG ---
DATE OF SERVICE: 03/25/2018 Leopoldo Berg is doing well today. He is in ICU, he is sitting up in a chair and conversive. He was appropriately oriented. He is tolerating his diet. VITAL SIGNS: Heart rate 82, 117/69. Wound VAC in place, left arm. LABORATORY: White count is 15,000, down from 23,000 yesterday. Basic metabolic profile was normal. PHYSICAL EXAMINATION: LUNGS: Clear to auscultation. CARDIAC: Regular rate and rhythm without murmur or gallop. ABDOMEN: Soft, nontender. EXTREMITIES: Unremarkable. ASSESSMENT AND PLAN: 1. Necrotizing fasciitis, left arm, status post incision and drainage, and extensive debridement of skin, soft tissue, connective tissue, yesterday. Wound VAC in place. We will plan to view the wound on Sunday. Continue intravenous antibiotics. Cultures are pending. Awaiting Dr. Garcia' consult ation. 2. Cardiac pauses, awaiting Cardiology input. He will probably stay in CCU today because of this. From surgical standpoint, he can be transferred to the floor whenever Cardiology thinks it is safe.
--- NOTE | 2018-03-25 13:12 | CON ---
DATE OF CONSULTATION: 03/25/2018 REASON FOR CONSULTATION: Necrotizing infection left upper extremity. HISTORY OF PRESENT ILLNESS: A 62-year-old patient who has a history of alcoholism, depression and shell stained an injury to the left upper extremity a few days ago with then development of redness, bliste ring. He waited hoping that it would get better and then eventually ended up in the hospital. He brower s had I&D by Dr. Haque of what appears to be an abscess with areas of necrosis. Currently, he is in the ICU, has had some sinus pauses up to 6 seconds according to the nurse. No headaches, visual sym ptoms, sore throat, odynophagia, dysphagia, no cough or sputum or chest pain. A little bit of back p ain, No joint symptoms except for knee pain. He has pain in lower extremities, which appears to be n europathic pain and has had difficulty with ambulation related to this symptom for the past few month s. Seems to be progressive. It is not clear what kind of workup he has had for it. This may be rel ated to the fall that precipitated the injuries that led to the current inflammatory process left upp er extremity. MEDICAL HISTORY: Alcoholism, chronic pain in lower extremities, possible associated with neuropathy , possible chronic osteoarthrosis in knees, mobility impairment, gait instability. PAST SURGICAL HISTORY: The only surgical history is tonsillectomy. FAMILY HISTORY: Noncontributory. SOCIAL HISTORY: He used to have excessive alcoholic beverage use. Now, he attests to less than 5 dr inks per day, still smoking. ALLERGIES: None. CURRENT MEDICATIONS: DuoNeb, cefepime, diazepam, enoxaparin, magnesium, pantoprazole, thiamine, vanc omycin. ALLERGIES: NONE. PHYSICAL EXAMINATION: VITAL SIGNS: T-max 98.6, blood pressure 129/53, pulse 91, respirations 16, O2 sat 99%. SKIN: Demonstrates the area of swelling, excoriations and the blistering left upper extremity and th e wound appearance after the debridement shows the areas of surgical incision with a fresh red base. A deep wound. The patient has a right subclavian central line and voiding spontaneously. No lympha denopathy. Alopecia. HEENT: Ocular movements conjugate. Sclerae white. Conjunctivae normal. Oral cavity still with danny te a few teeth in place with gingivitis and dental decay. Oral cavity moist, no lesions. NECK: Supple, no jugular vein distention or carotid bruits. LUNGS: With scattered wheezing expiratory noted in both right and left hemithorax. HEART: S1, S2, regular rate with a soft aortic murmur. No S3. ABDOMEN: Moderately distended, tympanitic, but not tender. No evidence of ascites. No bladder dist ention. EXTREMITIES: No joint inflammatory activity. He is able to move extremities, 1+ edema lower extremi ties. Left upper extremity is covered with a dressing was not removed at this time. Pulses are 1+ i n radialis and posterior tibialis and dorsalis pedis. NEUROLOGIC: He is awake, oriented, follows commands, pleasant. LABORATORY DATA: White cell count 20,000, now is at 15,000, hemoglobin 9.2, platelets 196, up from a dmission. Chemistry with a creatinine 0.95, sodium 127, albumin 2.8. Transaminases and direct bilir ubin normal. Toxicology was negative, although alcohol level was not measured. Syphilis nonreactive . Microbiology with gram positive cocci in clusters from the wound. Two sets of blood cultures thus far are negative. We have a chest x-ray with a central line placement. No post-procedure pneumothorax. The operative note was reviewed and extensive abscess was seen in the left arm extending from the wrist to the uppe r arm and devitalized segment of skin with ecchymosis and blistering throughout the forearm and upper arm. Unroofing of abscess with copious amount of purulent material obtained, counter incision was m lianne. ASSESSMENT: 1. Alcoholism. 2. Gait instability, possible neuropathy associated with alcoholism superimposed on osteoarthrosis. 3. Fall with injuries to the left upper extremity, now with a necrotizing infection associated with likely Staphylococcus aureus/methicillin-resistant Staphylococcus aureus. Continue cefepime, vancomy arabella, and wait until final identification and susceptibility profile of the organism. Continue comple x wound care. Monitor the blood cultures. If blood cultures are negative, then once the wound impro ves and we have then the possibility of transitioning to oral antimicrobial therapy. Check hepatitis C and HIV serology.
[2018-03-25] MEDS: Acetaminophen 500 MG TAB PO PRN (15:19)
[2018-03-25] MEDS: Cefepime 2 GM, Admixture Fee 1 EACH in Sodium Chloride 0.9% 100 ML IVPB SCH ×2 (16:15→23:18)
[2018-03-25 20:21] LABS: Vancomycin, Trough 20.2 ug/mL
[2018-03-25] MEDS: Enoxaparin Sodium 40 MG/0.4 ML SYRINGE SC SCH (21:52)
[2018-03-26] MEDS ORDERED: diphenhydrAMINE 25 MG CAP PO SCH (00:15)
[2018-03-26 08:27] LABS: Anion Gap 11 mmol/L (10-20); BUN (Urea Nitrogen) 8 mg/dL (8.4-25.7); Calc. Creatinine Clearance 136 mL/min (70-130); Carbon Dioxide 23 mmol/L (23-31); Chloride 104 mmol/L (98-107); Estimated GFR-MDRD Greater than 90; Glucose 90 mg/dL (80-115); Magnesium 1.1 mg/dL (1.6-2.6); Sodium 135 mmol/L (136-145)
[2018-03-26 08:37] LABS: Hemoglobin 8.7 g/dL (14.0-18.0); Mean Corpuscular HGB CONC 33.8 g/dL (32.0-36.0); Mean Corpuscular Hemoglobin 35.6 pg (27.0-31.0); Mean Platelet Volume 6.6 fL (7.4-10.4); Platelet Count 223 thou/uL (130-400); RBC Distribution Width 14.2 % (11.5-14.5); Red Blood Cell (RBC) Count 2.45 mill/uL (4.70-6.10)
[2018-03-26 08:46] LABS: Band 1 % (5-11); Lymphocytes 20 % (21-51); MDiff Complete? YES; Monocytes 10 % (0-10); Neutrophil 69 % (42-75); RBC Morphology Normal
--- NOTE | 2018-03-26 08:50 | PRG ---
DATE OF SERVICE: 03/26/2018 This morning, he is better, awake, alert, responsive. He ate all his breakfast. PHYSICAL EXAMINATION: VITAL SIGNS: Sats are 100% on room air, temperature 98, blood pressure 102/59, respirations 17. GENERAL: In no distress. CHEST: Chest revealed decreased breath sounds, no wheezing. CARDIAC: Normal S1, S2, no gallops. ABDOMEN: Soft, no mass. IMPRESSION: 1. Necrotizing fasciitis, better. 2. Streptococcus. PLAN: Antibiotic, Maxipime, vancomycin on board,patient not toxic looking. He is going to be transferred out of the ICU to a monitored bed since he had a pause on his EKG. We will follow while in the ICU. EROS
[2018-03-26] MEDS: Cefepime 2 GM, Admixture Fee 1 EACH in Sodium Chloride 0.9% 100 ML IVPB SCH (08:58)
[2018-03-26] MEDS: Magnesium Oxide 400 MG TAB PO SCH (08:59)
[2018-03-26] MEDS: Multivit, Therapeutic 1 TAB PO SCH (08:59)
[2018-03-26] MEDS: Folic Acid 1 MG TAB PO SCH (08:59)
[2018-03-26] MEDS: Zinc Sulfate 220 MG CAP PO SCH (08:59)
[2018-03-26] MEDS: Acetaminophen 500 MG TAB PO PRN ×2 (09:03→21:01)
[2018-03-26] MEDS: Vancomycin HCl 1.25 GM in Sodium Chloride 0.9% 250 ML 250 ML IVPB SCH (09:11)
--- NOTE | 2018-03-26 13:41 | PDOC.CTH ---
<Niru Abdi - Last Filed: 03/26/18 13:39> Cardiology Progress Note - Subjective EP Progress note: patient seen an evaluated. Continues to occasionally have lightheaded episodes but is unsure of exact time, thus, we are unable to correlated with telemetry tracings. Not sleeping well. No new cardiac concerns or complaints Denies heart racing, palpitations, chest pain/pressure, stroke like symptoms, or passing out. + lightheaded, tiredness, poor sleep - Objective Vital Signs Temp Pulse Resp BP Pulse Ox 03/26/18 12:00 98.2 F 111/70 03/26/18 08:00 121/63 03/26/18 07:08 98.1 F 72 15 100 03/26/18 04:00 97.9 F 102/59 L Admit Weight 186 lb 6.4 oz Weight 185 lb 12.8 oz 03/25/18 03/26/18 03/27/18 06:59 06:59 06:59 Intake Total 2525 2209 240 Output Total 2250 2350 650 Balance 275 -141 -410 - Physical Examination General/Neuro: alert & oriented x3, NAD Neck: carotid US brisk, no JVD present Lungs: CTA, other: (+berathing labored with minimal exertion/speaking) Heart: RRR Abdomen: NT/ND, soft Extremities: + edema B (LUE, large dressing in place by wound care/ID) - Telemetry Telemetry Rhythm: NSR, parox CHB - Labs Result Diagrams: 03/26/18 07:57 03/26/18 07:57 - Assessment/Plan 1. Paroxysmal third degree AV block with junctional escape rhythm- no clear etiology. Consider re-examining echo for subclinical endocarditis. longest, 4 second ventricular pause in past 24 hours. 2. Necrotizing fasciitis- LUE per ID. wound vac in place. IV anbx. 3. Alcohol abuse 4. Tobacco habituation Continue to monitor with telemetry. Tentative plan for EPS. With substantial active infection, it is not appropriate to place PPM now. If AV block progresses , may need temporary pacemaker. Will re-evaluate tomorrow <Marco Burnham - Last Filed: 03/26/18 16:11> Cardiology Progress Note - Objective Vital Signs Temp Pulse Pulse Pulse Resp BP BP 03/26/18 14:01 100 90 101/73 03/26/18 12:00 98.2 F 111/70 03/26/18 08:00 121/63 03/26/18 07:08 98.1 F 72 15 BP Pulse Ox Pulse Ox 03/26/18 14:01 125/76 98 03/26/18 12:00 03/26/18 08:00 03/26/18 07:08 100 Admit Weight 186 lb 6.4 oz Weight 185 lb 12.8 oz 03/25/18 03/26/18 03/27/18 06:59 06:59 06:59 Intake Total 2525 2209 480 Output Total 2250 2350 650 Balance 275 -141 -170 - Labs Result Diagrams: 03/26/18 07:57 03/26/18 07:57 Attending Addendum - Attending Addendum Date/Time: 03/26/18 1611 I personally evaluated the patient and discussed the management with Ms Abdi. I agree with the History, Examination, Assessment and Plan documented above with any addition or exceptions noted below.
[2018-03-26] MEDS: cefTRIAXone\\ROCEPHIN 2 GM, Admixture Fee 1 EACH in Sodium Chloride 0.9% 100 ML IVPB SCH (14:16)
[2018-03-26] MEDS: Clindamycin/D5W 600 MG in Premix Bag 1 BAG IVPB SCH ×2 (14:16→19:49)
[2018-03-26] MEDS: traMADol HCl 50 MG TAB PO PRN (14:36)
--- NOTE | 2018-03-26 14:51 | CON ---
DATE OF CONSULTATION: 03/26/2018 REFERRING PHYSICIAN: Dr. Sheth I am seeing Mr. Berg at our [facility] ICU as an electrophysiology client consultant. His problems are: 1. Episodic complete AV block. 2. Necrotizing fasciitis requiring debridement. A. Beta-hemolytic strep, group A, from arm abscess, negative blood cultures x2 today. 3. History of ETOH abuse. 4. History of tobacco abuse. 5. History of spinal stenosis. ALLERGIES: None. MEDICATIONS: At home include Tylenol. Medications currently include Zosyn, potassium chloride, clindamycin, vancomycin, Diltiazem, diazepam, Thiamine, mag sulfate, ondansetron p.r.n. SUBJECTIVE: Mr. Berg is here with left arm, necrotizing fasciitis requiring IV antibiotics. He has had I&D, but nothing was found. He had drainage performed for an abscess and necrosis and it is getting better. While in the ICU he was noted to have ventricular asystole up to 6 seconds with underlying undisturbed P waves continued suggestive of paroxysmal complete AV block. He has got some shorter epsides later. This episode is not correlating to sleep and occasionally happens while he is awake. There is no preceding nausea, vomiting or abdominal distress or other discomforts correlating to that either. He has no PND, orthopnea. No neurological deficits. No stroke-like symptoms. No fever, chills, cough at this time. The left arm is healing adequately. REVIEW OF SYSTEMS: Twelve point system otherwise unremarkable. PAST MEDICAL HISTORY: As above. The patient has a history of osteoarthritis and a tonsillectomy. SOCIAL HISTORY: As above. He has the smoking and ETOH use, denies drug use. FAMILY HISTORY: Noncontributory. OBJECTIVE: VITAL SIGNS: Blood pressure is 125/61, pulse 81, respiration 12. The patient is afebrile. GENERAL: This is an alert and oriented man in no apparent distress. NECK: Supple. Jugular venous distention not distended. CHEST: Coarse, no crackles. CARDIAC: Heart sounds are regular rate and rhythm. No murmur or gallop. EXTREMITIES: Left upper arm in bandages. ABDOMEN: Benign. Bowel sounds positive. . SKIN: Without rash. DATABASE: The EKG is reviewed and sinus rhythm, no ST-T changes. Telemetry strips revealed episodic complete AV block up to 6 seconds in duration, was also noted. ASSESSMENT AND PLAN: Mr. Berg is a pleasant 62-year-old man with a history of diabetes, history of ETOH and tobacco abuse who was admitted for necrotizing fasciitis requiring debridement. On the monitor he did develop episodic AV block.The episodes are not associated with any vagal simulation. Also his sinus rates did not change during the AV block epsides. The reason for the AV block is unclear. In view of the skin infection, would get echocardiogram to monitor any structural changes, possible endocarditis could be a concern. So far though, he has no obvious signs of this. If the AV block worsened, he might be consider for permanent pacing. At this point, I would hold off on that,d hence the possibility of intravascular infection. If the infection does not resolve, could consider temporary pacemaker implantation if these pauses become worse. For now, we will continue monitoring him. We will discuss with Dr. Sheth. We will obtain echocardiogram. Thank you again for allowing me to participate in the care of this patient. EROS
[2018-03-26] MEDS ORDERED: Potassium Phosphate 15 MMOL in Sodium Chloride 0.9% 250 ML 250 ML IV PRN (17:12)
[2018-03-26] MEDS ORDERED: Potassium Chloride 40 MEQ in Sodium Chloride 0.9% 250 ML 250 ML IVPB PRN (17:12)
[2018-03-26] MEDS ORDERED: Potassium Chloride 20 MEQ TAB PO PRN (17:12)
[2018-03-26] MEDS ORDERED: Potassium Phosphate 12 MMOL in Sodium Chloride 0.9% 250 ML 250 ML IV PRN (17:12)
[2018-03-26] MEDS ORDERED: Potassium Phosphate 9 MMOL in Sodium Chloride 0.9% 100 ML IVPB PRN (17:12)
[2018-03-26] MEDS ORDERED: Magnesium 2 GM/NS 0.9% 100 ML 2 GM in Premix Bag 1 BAG IVPB PRN (17:12)
[2018-03-26] MEDS ORDERED: CCU ELECTROLYTE REPLACEMENT PROTOCOL FS PRN (17:12)
[2018-03-26] MEDS ORDERED: Potassium Chloride 40 MEQ in Premix Bag 1 BAG IVPB PRN (17:12)
[2018-03-26] MEDS ORDERED: Magnesium Oxide 400 MG TAB PO PRN ×2 (17:12)
[2018-03-26] MEDS: Enoxaparin Sodium 40 MG/0.4 ML SYRINGE SC SCH (20:23)
[2018-03-26 20:51] LABS: Vancomycin, Trough 19.1 ug/mL
--- NOTE | 2018-03-26 23:26 | PRG ---
DATE OF SERVICE: 03/26/2018 Leopoldo Berg is a 62-year-old male patient, did well in the ICU. Dr. Burnham has seen him in co nsultation for his episodic complete AV block. Recommendation was for an echocardiogram. Considerat ions are that if the AV block worsens, he might be considered for permanent pacing, although at this point, that is not indicated due to the resolving infection. Continue to monitor it was recommended. The patient's wound VAC was changed today in his left arm. This was painful. The wound, however, was looking good. There was no indication for further surgical debridement. Lungs, clear to auscult ation. Cardiac, regular rate and rhythm without murmur, rub, or gallop. Abdomen is soft. 83, 108/5 6. White count down to 10, down from 23,000. Basic metabolic profile normal. Cultures, beta hemoly tic strep. Patient has been seen by Dr. Garcia. Patient will be transferred to the telemetry unit, p anyi tomorrow.
[2018-03-27] MEDS: Clindamycin/D5W 600 MG in Premix Bag 1 BAG IVPB SCH ×4 (02:56→22:18)
[2018-03-27 04:27] LABS: Anion Gap 10 mmol/L (10-20); BUN (Urea Nitrogen) 7 mg/dL (8.4-25.7); Calc. Creatinine Clearance 147 mL/min (70-130); Calcium 7.6 mg/dL (7.8-10.44); Carbon Dioxide 25 mmol/L (23-31); Chloride 103 mmol/L (98-107); Estimated GFR-MDRD Greater than 90; Glucose 98 mg/dL (80-115); Potassium 3.6 mmol/L (3.5-5.1); Sodium 134 mmol/L (136-145)
[2018-03-27 05:15] LABS: Band 15 % (5-11); Eosinophils 1 % (0-10); Hemoglobin 8.7 g/dL (14.0-18.0); Lymphocytes 17 % (21-51); MDiff Complete? YES; Mean Corpuscular HGB CONC 35.2 g/dL (32.0-36.0); Mean Corpuscular Hemoglobin 37.2 pg (27.0-31.0); Mean Platelet Volume 6.8 fL (7.4-10.4); Monocytes 4 % (0-10); Neutrophil 63 % (42-75); Platelet Count 244 thou/uL (130-400); RBC Distribution Width 14.2 % (11.5-14.5); Red Blood Cell (RBC) Count 2.35 mill/uL (4.70-6.10); White Blood Cell (WBC) Count 14.3 thou/uL (4.8-10.8)
[2018-03-27] MEDS: traMADol HCl 50 MG TAB PO PRN ×2 (07:34→18:25)
[2018-03-27] MEDS: Multivit, Therapeutic 1 TAB PO SCH (08:41)
[2018-03-27] MEDS: Magnesium Oxide 400 MG TAB PO SCH (08:41)
[2018-03-27] MEDS: Zinc Sulfate 220 MG CAP PO SCH (08:41)
[2018-03-27] MEDS: Folic Acid 1 MG TAB PO SCH (08:41)
--- NOTE | 2018-03-27 08:53 | PRG ---
DATE OF SERVICE: 03/27/2018 This morning he is awake, alert and responsive. He walked 100 feet yesterday without getting short o f breath. He is weak. He is having pain in his left hand. He says his breathing is improved. PHYSICAL EXAMINATION: VITAL SIGNS: Blood pressure 90/60, heart rate is 85, temperature 98, sats are 97 on room air. CHEST: No wheezing. CARDIAC: Normal S1, S2, no gallops. ABDOMEN: Soft, no masses. LABORATORY DATA: White count 14,000, H&H 8 and 24, platelet count normal. Electrolytes are normal. IMPRESSION: 1. Necrotizing fasciitis, left upper lung and left upper extremity. 2. Complete AV block. 3. Tobacco abuse. 4. Alcohol abuse. PLAN: He can be transferred out of the ICU to a monitored bed. He is on clindamycin, ceftriaxone an tibiotic which are continued. Pulmonary will follow while in the ICU.
--- NOTE | 2018-03-27 11:08 | PRG ---
DATE OF SERVICE: 03/27/2018 ELECTROPHYSIOLOGY FOLLOWUP NOTE SUBJECTIVE: Mr. Berg seems to be doing better. He still has arm in bandages. OBJECTIVE DATA: VITAL SIGNS: Blood pressure is 111/62, heart rate 73, respirations 13, temperature 98.6 degrees Fah renheit. GENERAL: He is alert and oriented man in no apparent distress. NECK: Supple. Jugular veins not distended. CHEST: Coarse, no crackles. HEART: Sounds are regular to rate and rhythm. No murmur or gallop. Left arm is in bandages. ABDOMEN: Benign. Bowel sounds positive. EXTREMITIES: Lower extremities without edema, clubbing, or cyanosis. DATABASE: Telemetry strips reveal last episode of 3 seconds of AV block on the 10th at noon, none no luis since we stopped. LABORATORY DATA: White cell count is still elevated at 14.3, hemoglobin 8.7, platelet count is 244. Sodium 134, potassium 3.6, BUN is 10, creatinine 0.62. ASSESSMENT AND PLAN: Mr. Berg is a 62-year-old man with a history of some alcohol use, hypertensio n, who was admitted with necrotizing fasciitis, requiring resection and debridement on his left upper arm. While on monitoring, he had a transient complete arteriovenous block noted, which were mildly symptomatic. Episodes were short, but recurrent. Hence his continued infection at this point, poor candidate for permanent pacing. Should the episodes worsen, could consider temporary pacemaker, othe rwise if the episodes resolve permanent pacing may be a possibility. Dr. Sheth is following him and had an echocardiogram ordered for ruling out endocarditis.
[2018-03-27] MEDS: cefTRIAXone\\ROCEPHIN 2 GM, Admixture Fee 1 EACH in Sodium Chloride 0.9% 100 ML IVPB SCH (12:04)
--- NOTE | 2018-03-27 20:04 | PRG ---
DATE OF SERVICE: 03/27/2018 SUBJECTIVE: Mr. Berg is doing well today. He is transferred to telemetry. I saw him in ICU prior to transfer. PHYSICAL EXAMINATION: VITAL SIGNS: Temperature 99.4 degrees, 112, 115/72. LUNGS: Clear to auscultation. CARDIAC: Regular rate and rhythm without murmur or gallop. ABDOMEN: Soft. EXTREMITIES: Dressings in left arm wound VAC in place. LABORATORY DATA: White count down to 14,000, hemoglobin 8.7. Basic metabolic profile normal. Overall, patient is doing well. He will need appropriate intravenous antibiotics. We will view his wound Sunday and then the wound VAC change in 2 days.
[2018-03-27] MEDS: Enoxaparin Sodium 40 MG/0.4 ML SYRINGE SC SCH (22:18)
[2018-03-28] MEDS: traMADol HCl 50 MG TAB PO PRN ×3 (00:23→20:42)
[2018-03-28] MEDS: Clindamycin/D5W 600 MG in Premix Bag 1 BAG IVPB SCH ×2 (04:14→10:45)
[2018-03-28] MEDS: Magnesium Oxide 400 MG TAB PO SCH (09:03)
[2018-03-28] MEDS: Folic Acid 1 MG TAB PO SCH (09:03)
[2018-03-28] MEDS: Multivit, Therapeutic 1 TAB PO SCH (09:03)
[2018-03-28] MEDS: Zinc Sulfate 220 MG CAP PO SCH (09:04)
[2018-03-28 10:12] LABS: Hemoglobin 8.6 g/dL (14.0-18.0); Mean Corpuscular HGB CONC 33.5 g/dL (32.0-36.0); Mean Corpuscular Hemoglobin 35.7 pg (27.0-31.0); Mean Platelet Volume 6.5 fL (7.4-10.4); Platelet Count 264 thou/uL (130-400); RBC Distribution Width 14.2 % (11.5-14.5); White Blood Cell (WBC) Count 12.1 thou/uL (4.8-10.8)
[2018-03-28 10:57] LABS: Band 5 % (5-11); Lymphocytes 18 % (21-51); Monocytes 3 % (0-10); Myelocyte 2 % (0-0); Neutrophil 72 % (42-75)
[2018-03-28 10:58] LABS: MDiff Complete? YES; Polychromasia SLIGHT = 2-3 cells (100X) (0-2/hpf)
[2018-03-28 11:15] LABS: Anion Gap 9 mmol/L (10-20); BUN (Urea Nitrogen) 5 mg/dL (8.4-25.7); Calc. Creatinine Clearance 161 mL/min (70-130); Calcium 7.7 mg/dL (7.8-10.44); Carbon Dioxide 26 mmol/L (23-31); Chloride 97 mmol/L (98-107); Estimated GFR-MDRD Greater than 90; Glucose 109 mg/dL (80-115); Magnesium 1.2 mg/dL (1.6-2.6); Potassium 3.4 mmol/L (3.5-5.1); Sodium 129 mmol/L (136-145)
[2018-03-28 13:17] VITALS: BMI 29.8
[2018-03-28] MEDS: cefTRIAXone\\ROCEPHIN 2 GM, Admixture Fee 1 EACH in Sodium Chloride 0.9% 100 ML IVPB SCH (13:34)
--- NOTE | 2018-03-28 17:03 | PRG ---
DATE OF SERVICE: 03/28/2018 SUBJECTIVE: Leopoldo Berg has been moved to telemetry. He is doing well. His pain is diminished. PHYSICAL EXAMINATION: VITAL SIGNS: 98.8 degrees, 97, 115/75. LABORATORY DATA: This morning, his white count is 12, hemoglobin 8.6. Sodium 129, potassium 3.44, B UN normal. ASSESSMENT AND PLAN: Low magnesium, replace. Severe necrotizing infection, Streptococcus left arm, wound VAC in place. Plan to view his arm tomorrow. He has hand swelling. He can minimize this by e levating his arm above his heart.
[2018-03-28] MEDS ORDERED: Diazepam 5 MG TAB PO PRN (20:36)
[2018-03-28] MEDS ORDERED: Ondansetron HCl/PF 4 MG/2 ML Vial IVP PRN (20:36)
[2018-03-28] MEDS ORDERED: Ibuprofen 600 MG TAB PO PRN (20:37)
[2018-03-28] MEDS ORDERED: Potassium Chloride 20 MEQ TAB PO PRN (20:38)
[2018-03-28] MEDS ORDERED: Potassium Chloride 40 MEQ in Premix Bag 1 BAG IVPB PRN (20:38)
[2018-03-28] MEDS ORDERED: Potassium Chloride 40 MEQ in Sodium Chloride 0.9% 250 ML 250 ML IVPB PRN (20:38)
[2018-03-28] MEDS ORDERED: CCU ELECTROLYTE REPLACEMENT PROTOCOL FS PRN (20:39)
[2018-03-28] MEDS ORDERED: Magnesium 2 GM/NS 0.9% 100 ML 2 GM in Premix Bag 1 BAG IVPB PRN (20:39)
[2018-03-28] MEDS ORDERED: Magnesium Oxide 400 MG TAB PO PRN ×2 (20:39)
[2018-03-28] MEDS ORDERED: Potassium Phosphate 15 MMOL in Sodium Chloride 0.9% 250 ML 250 ML IV PRN (20:40)
[2018-03-28] MEDS ORDERED: Potassium Phosphate 9 MMOL in Sodium Chloride 0.9% 100 ML IVPB PRN (20:40)
[2018-03-28] MEDS ORDERED: Potassium Phosphate 12 MMOL in Sodium Chloride 0.9% 250 ML 250 ML IV PRN (20:40)
[2018-03-28] MEDS: Enoxaparin Sodium 40 MG/0.4 ML SYRINGE SC SCH (21:07)
[2018-03-28] MEDS: CEFAZOLIN/Water 2 GM/20 ML SYRINGE SLOW IVP SCH (21:07)
--- NOTE | 2018-03-28 21:53 | PRG ---
DATE OF SERVICE: 03/28/2018 ELECTROPHYSIOLOGY FOLLOWUP NOTE SUBJECTIVE: Mr. Berg seems to be doing better and transferred to the floor. No further dizziness noted. OBJECTIVE: VITAL SIGNS: Blood pressure is 115/72, heart rate 92, respiration 16, temperature 99.4 degrees Fahre nheit. GENERAL: He is an alert and oriented man, in no apparent distress. NECK: Supple. Jugular veins not distended. CHEST: Coarse, no crackles. CARDIOVASCULAR: Heart sounds are regular to rate and rhythm. No murmur or gallop. EXTREMITIES: Left upper extremity in bandages. DATABASE: Telemetry strips reviewed reveals no significant pausing, no more AV block noted for last 36 hours. LABORATORY DATA: White blood cell count 12.1, hemoglobin 8.6, platelet count is 264. Sodium 129, po tassium 3.4, BUN is 5, creatinine 0.6. ASSESSMENT AND PLAN: Mr. Berg is a 62-year-old man with history of hypertension who has a history of alcohol use as well with necrotizing fasciitis, recurrent resection and debridement of left upper arm. While monitoring, he developed a transient complete AV block, which are mildly symptomatic. Ev entually, the episode spontaneously resolved. So far, no recurrence for over 36 hours is seen. A 2D echo demonstrates normal LVEF, mild MR and TR. No other valvular abnormalities. Plan at this point, this gentleman's conduction issues seem to be resolving. So far, still not clear ly explained no definite evidence of endocarditis process is documented just yet. If episode worsens , consideration of JACOB could be made, but for now we would continue to monitor the telemetry. We sin l try to avoid the pacemaker placement in this gentleman who has significant infection issues at this time.
[2018-03-28] MEDS ORDERED: CEFAZOLIN/Water 2 GM/20 ML SYRINGE SLOW IVP SCH (22:00)
[2018-03-29] MEDS: traMADol HCl 50 MG TAB PO PRN ×4 (02:48→21:43)
[2018-03-29] MEDS: CEFAZOLIN/Water 2 GM/20 ML SYRINGE SLOW IVP SCH ×3 (05:42→21:46)
[2018-03-29] MEDS: Zinc Sulfate 220 MG CAP PO SCH (08:29)
[2018-03-29] MEDS: Magnesium Oxide 400 MG TAB PO SCH (08:30)
[2018-03-29] MEDS: Multivit, Therapeutic 1 TAB PO SCH (08:31)
[2018-03-29] MEDS: Folic Acid 1 MG TAB PO SCH (08:31)
[2018-03-29 10:04] LABS: #Lymphocytes 1.7 thou/uL (1.20-3.40); #Monocytes 0.6 thou/uL (0.11-0.59); #Neutrophils 6.3 thou/uL (1.40-6.50); %Basophils 0.2 % (0.0-1.0); %Eosinophils 0.3 % (0.0-10.0); %Lymphocytes 19.7 % (21.0-51.0); %Neutrophils 72.9 % (42.0-75.0); Hemoglobin 8.6 g/dL (14.0-18.0); Mean Corpuscular HGB CONC 34.5 g/dL (32.0-36.0); Mean Corpuscular Hemoglobin 36.6 pg (27.0-31.0); Mean Platelet Volume 6.4 fL (7.4-10.4); Platelet Count 288 thou/uL (130-400); RBC Distribution Width 14.2 % (11.5-14.5); Red Blood Cell (RBC) Count 2.35 mill/uL (4.70-6.10); White Blood Cell (WBC) Count 8.6 thou/uL (4.8-10.8)
[2018-03-29 10:32] LABS: Anion Gap 11 mmol/L (10-20); BUN (Urea Nitrogen) 4 mg/dL (8.4-25.7); Calc. Creatinine Clearance 173 mL/min (70-130); Calcium 8.1 mg/dL (7.8-10.44); Carbon Dioxide 25 mmol/L (23-31); Chloride 98 mmol/L (98-107); Estimated GFR-MDRD Greater than 90; Glucose 110 mg/dL (80-115); Potassium 3.6 mmol/L (3.5-5.1); Sodium 130 mmol/L (136-145)
--- NOTE | 2018-03-29 11:31 | PDOC.CTH ---
<Niru Abdi - Last Filed: 03/29/18 11:31> Cardiology Progress Note - Subjective EP Progress note: patient seen an evaluated. Denies lightheaded episodes. No new cardiac concerns or complaints Denies heart racing, palpitations, chest pain/pressure, stroke like symptoms, passing out, lightheaded, tiredness, but + poor sleep - Objective Vital Signs Temp Pulse Resp BP Pulse Ox 03/29/18 11:30 98.9 F 95 15 100/61 98 03/29/18 07:40 98.6 F 88 16 119/78 98 03/29/18 04:00 98.0 F 95 18 113/69 97 03/29/18 00:00 98.3 F 98 20 130/73 96 Admit Weight 186 lb 6.4 oz Weight 193 lb 11.2 oz 03/28/18 03/29/18 03/30/18 06:59 06:59 06:59 Intake Total 440 440 Output Total 1025 2125 Balance -925 -4883 - Physical Examination General/Neuro: alert & oriented x3, NAD Neck: no JVD present Lungs: unlabored respirations Heart: PMI normal, RRR Abdomen: no HSM, NT/ND, soft - Telemetry Telemetry Rhythm: NSR - Labs Result Diagrams: 03/29/18 09:50 03/29/18 09:50 - Assessment/Plan 1. Paroxysmal third degree AV block with junctional escape rhythm- no clear etiology. Resolved. No recurrence in the past 2-3 days. 2. Necrotizing fasciitis- LUE per ID. IV anbx. 3. Alcohol abuse 4. Tobacco habituation 5. Preserved EF No PPM as transient block has resolved and he would be a high risk for implant with his current infectious status. If further issues are seen, recommend JACOB for closer examination for possible endocarditis. Signing off. Please let us know if we can be of further assistance. <Marco Burnham - Last Filed: 03/29/18 14:54> Cardiology Progress Note - Objective Vital Signs Temp Pulse Pulse Pulse Resp BP BP 03/29/18 11:30 98.9 F 95 15 03/29/18 10:25 97 97 115/68 118/63 03/29/18 08:33 98.9 F 95 15 03/29/18 07:40 98.6 F 88 16 03/29/18 04:00 98.0 F 95 18 BP Pulse Ox 03/29/18 11:30 100/61 98 03/29/18 10:25 03/29/18 08:33 98 03/29/18 07:40 119/78 98 03/29/18 04:00 113/69 97 Admit Weight 186 lb 6.4 oz Weight 193 lb 11.2 oz 03/28/18 03/29/18 03/30/18 06:59 06:59 06:59 Intake Total 440 440 Output Total 1025 212 Balance -585 -2853 - Labs Result Diagrams: 03/29/18 09:50 03/29/18 09:50 Attending Addendum - Attending Addendum Date/Time: 03/29/18 4099 I personally evaluated the patient and discussed the management with Ms Abdi. I agree with the History, Examination, Assessment and Plan documented above with any addition or exceptions noted below.
--- NOTE | 2018-03-29 19:12 | PRG ---
DATE OF SERVICE: 03/29/2018 Mr. Berg is doing well today. We medicated him, removed his dressings. His wounds look good. I reece mckeon discussed with Dr. Daniel. The patient will be discharged home on oral antibiotics and follow up in outpatient wound care for twice a week wound VAC care. The patient states he has transportation. wound VAC has been approved. I will see him in outpatient wound care in the next few weeks.
[2018-03-29] MEDS: Enoxaparin Sodium 40 MG/0.4 ML SYRINGE SC SCH (21:46)
[2018-03-30] MEDS: traMADol HCl 50 MG TAB PO PRN ×2 (05:18→14:39)
[2018-03-30] MEDS: CEFAZOLIN/Water 2 GM/20 ML SYRINGE SLOW IVP SCH ×3 (06:13→21:54)
[2018-03-30] MEDS: Zinc Sulfate 220 MG CAP PO SCH (08:33)
[2018-03-30] MEDS: Magnesium Oxide 400 MG TAB PO SCH (08:34)
[2018-03-30] MEDS: Folic Acid 1 MG TAB PO SCH (08:34)
[2018-03-30] MEDS: Multivit, Therapeutic 1 TAB PO SCH (08:34)
--- NOTE | 2018-03-30 12:56 | PDOC.PN ---
- Subjective Encounter Start Date: 03/30/18 Encounter Start Time: 09:15 Pt did well overnight, slept ok. did not discharge as expected, chaity VAc approve,d but could not get hold of outpatient wound care to obtain his VAC equipment. Angel Luis goldman it. No F/C, no n/V/d/C. radha ancef well. all systems reviewed and neg x as above - Objective Resuscitation Status: Resuscitation Status FULL:Full Resuscitation MAR Reviewed: Yes Vital Signs & Weight: Vital Signs (12 hours) Temp Pulse Resp BP BP Pulse Ox 03/30/18 08:34 98.4 F 86 16 99 03/30/18 07:47 98.4 F 86 16 134/79 98 03/30/18 04:00 97.9 F 98 18 142/98 H 125/79 96 Weight Admit Weight 186 lb 6.4 oz Weight 187 lb 9 oz Most Recent Monitor Data Heart Rate from ECG 90 NIBP 105/66 NIBP BP-Mean 76 Respiration from ECG 13 SpO2 98 I&O: 03/29/18 03/30/18 03/31/18 06:59 06:59 06:59 Intake Total 440 450 Output Total 2125 850 Balance -1685 -400 Result Diagrams: 03/29/18 09:50 03/29/18 09:50 Phys Exam - Physical Examination Constitutional: NAD HEENT: PERRLA, moist MMs, sclera anicteric, oral pharynx no lesions Neck: no nodes, no JVD, supple, full ROM Respiratory: no wheezing, no rales, no rhonchi, clear to auscultation bilateral Cardiovascular: RRR, no significant murmur, no rub Gastrointestinal: soft, non-tender, no distention, positive bowel sounds Musculoskeletal: no edema, pulses present Neurological: non-focal, normal sensation, moves all 4 limbs Lymphatic: no nodes Psychiatric: normal affect, A&O x 3 Skin: no rash, normal turgor, cap refill <2 seconds Dx/Plan (1) Group A streptococcal infection Code(s): B95.0 - STREPTOCOCCUS, GROUP A, CAUSING DISEASES CLASSD ELSWHR Status : Acute (2) Necrotizing fasciitis due to Streptococcus pyogenes Code(s): M72.6 - NECROTIZING FASCIITIS; B95.0 - STREPTOCOCCUS, GROUP A, CAUSING DISEASES CLASSD ELSWHR Status: Acute (3) Cellulitis Code(s): L03.90 - CELLULITIS, UNSPECIFIED Status: Acute Comment: continue IV antibiotics as below (4) Hypomagnesemia Code(s): E83.42 - HYPOMAGNESEMIA Status: Acute Comment: replace magnesium (5) Sepsis Code(s): A41.9 - SEPSIS, UNSPECIFIED ORGANISM Status: Acute Comment: likely due to cellulitis - Plan cont current plan of care * . home when VAC arranged, continue Ancef while here, to po keflex on discharge
[2018-03-30] MEDS: Enoxaparin Sodium 40 MG/0.4 ML SYRINGE SC SCH (21:03)
[2018-03-31] MEDS: traMADol HCl 50 MG TAB PO PRN ×3 (01:20→15:57)
[2018-03-31 05:05] LABS: Anion Gap 9 mmol/L (10-20); BUN (Urea Nitrogen) Less than 4 mg/dL (8.4-25.7); Calc. Creatinine Clearance 156 mL/min (70-130); Calcium 8.3 mg/dL (7.8-10.44); Carbon Dioxide 29 mmol/L (23-31); Chloride 97 mmol/L (98-107); Estimated GFR-MDRD Greater than 90; Glucose 101 mg/dL (80-115); Magnesium 1.2 mg/dL (1.6-2.6); Sodium 131 mmol/L (136-145)
[2018-03-31 05:14] LABS: #Lymphocytes 2.3 thou/uL (1.20-3.40); #Monocytes 0.7 thou/uL (0.11-0.59); #Neutrophils 5.5 thou/uL (1.40-6.50); %Basophils 0.4 % (0.0-1.0); %Eosinophils 0.3 % (0.0-10.0); %Monocytes 8.3 % (0.0-10.0); Hemoglobin 8.8 g/dL (14.0-18.0); Mean Corpuscular HGB CONC 32.7 g/dL (32.0-36.0); Mean Corpuscular Hemoglobin 34.6 pg (27.0-31.0); Mean Platelet Volume 6.6 fL (7.4-10.4); Platelet Count 351 thou/uL (130-400); RBC Distribution Width 13.7 % (11.5-14.5); Red Blood Cell (RBC) Count 2.54 mill/uL (4.70-6.10); White Blood Cell (WBC) Count 8.6 thou/uL (4.8-10.8)
[2018-03-31] MEDS: CEFAZOLIN/Water 2 GM/20 ML SYRINGE SLOW IVP SCH ×3 (05:55→21:00)
[2018-03-31] MEDS: Multivit, Therapeutic 1 TAB PO SCH (08:17)
[2018-03-31] MEDS: Magnesium Oxide 400 MG TAB PO SCH (08:18)
[2018-03-31] MEDS: Zinc Sulfate 220 MG CAP PO SCH (08:18)
[2018-03-31] MEDS: Folic Acid 1 MG TAB PO SCH (08:23)
--- NOTE | 2018-03-31 13:12 | PDOC.PN ---
- Subjective Encounter Start Date: 03/31/18 Encounter Start Time: 13:11 Subjective: no new complaints. Pt seen and examined -: chart reviewed in detail. -: f/u for nec fascitis of left arm & sepsis - Objective Resuscitation Status: Resuscitation Status FULL:Full Resuscitation MAR Reviewed: Yes Vital Signs & Weight: Vital Signs (12 hours) Temp Pulse Resp BP Pulse Ox 03/31/18 12:00 98.7 F 92 16 117/74 96 03/31/18 08:20 98.9 F 88 16 03/31/18 08:00 98.9 F 88 16 140/76 96 03/31/18 03:53 98.0 F 100 18 130/90 97 Weight Admit Weight 186 lb 6.4 oz Weight 182 lb 6.4 oz Most Recent Monitor Data Heart Rate from ECG 90 NIBP 105/66 NIBP BP-Mean 76 Respiration from ECG 13 SpO2 98 I&O: 03/30/18 03/31/18 04/01/18 06:59 06:59 06:59 Intake Total 450 Output Total 850 Balance -400 Result Diagrams: 03/31/18 04:20 03/31/18 04:20 Additional Labs: Microbiology 03/24/18 14:20 Arm - Abscess Bacterial Culture - Final 03/24/18 14:20 Arm - Abscess Anaerobic Culture - Final Beta-hemolytic strep group A 03/22/18 19:00 Venous blood - Right Hand Blood Culture - Final NO GROWTH IN 5 DAYS 03/22/18 18:48 Venous blood - Right Arm Blood Culture - Final NO GROWTH IN 5 DAYS labs reviewed Phys Exam - Physical Examination Constitutional: NAD HEENT: PERRLA, moist MMs, sclera anicteric, oral pharynx no lesions Neck: no nodes, no JVD, supple, full ROM Respiratory: no wheezing, no rales, no rhonchi, clear to auscultation bilateral Cardiovascular: RRR, no significant murmur, no rub Gastrointestinal: soft, non-tender, no distention, positive bowel sounds Musculoskeletal: pulses present, edema present (Left hand swelling) Neurological: non-focal, normal sensation, moves all 4 limbs Psychiatric: normal affect, A&O x 3 Skin: no rash Dx/Plan (1) Sepsis Code(s): A41.9 - SEPSIS, UNSPECIFIED ORGANISM Status: Acute Comment: likely due to cellulitis (2) Necrotizing fasciitis due to Streptococcus pyogenes Code(s): M72.6 - NECROTIZING FASCIITIS; B95.0 - STREPTOCOCCUS, GROUP A, CAUSING DISEASES CLASSD ELSWHR Status: Acute (3) Cellulitis Code(s): L03.90 - CELLULITIS, UNSPECIFIED Status: Acute Comment: continue IV antibiotics as below (4) Paroxysmal third degree AV block Status: Acute Comment: Resolved. EP eval done. ECHO w NL EF (5) Hypomagnesemia Code(s): E83.42 - HYPOMAGNESEMIA Status: Acute Comment: replace magnesium (6) Hyponatremia Code(s): E87.1 - HYPO-OSMOLALITY AND HYPONATREMIA Status: Acute Comment: Improving, continue IV fluids as below, continue to monitor lytes (7) Macrocytic anemia Code(s): D53.9 - NUTRITIONAL ANEMIA, UNSPECIFIED Status: Chronic Comment: Likley due to alcohal abuse induced FA /B12 deficeincy.On supplementation (8) Alcohol abuse Code(s): F10.10 - ALCOHOL ABUSE, UNCOMPLICATED Status: Acute Comment: ASE protocol.Monitor for S/S of withdrawl.PRN Valium - Plan continue antibiotics, out of bed/ambulate, DVT proph w/SCDs awaiting OP wound care & wound vac set up -: ready for DC otherwise/ -: DC on keflex when ready. -: discussed w Pt and he is agreeable to pln. -: rest as above.am labs * . Review of Systems - Review of Systems Constitutional: negative: fever, chills, sweats, weakness, malaise, other Respiratory: negative: Cough, Dry, Shortness of Breath, Hemoptysis, SOB with Excertion, Pleuritic Pain, Sputum, Wheezing Cardiovascular: negative: chest pain, palpitations, orthopnea, paroxysmal nocturnal dyspnea, edema, light headedness, other Gastrointestinal: negative: Nausea, Vomiting, Abdominal Pain, Diarrhea, Constipation, Melena, Hematochezia, Other Genitourinary: negative: Dysuria, Frequency, Incontinence, Hematuria, Retention , Other Musculoskeletal: negative: Neck Pain, Shoulder Pain, Arm Pain, Back Pain, Hand Pain, Leg Pain, Foot Pain, Other Neurological: negative: Weakness, Numbness, Incoordination, Change in Speech, Confusion, Seizures, Other - Medications/Allergies Allergies/Adverse Reactions: Allergies Allergy/AdvReac Type Severity Reaction Status Date / Time No Known Drug Allergies Allergy Verified 03/22/18 23:06 Medications: Current Medications Acetaminophen (Tylenol) 1,000 mg PO Q6H PRN PRN Reason: Mild Pain (1-3) Albuterol/Ipratropium (Duoneb) 3 ml NEB Q4H PRN PRN Reason: WHEEZE/DYSPNEA Cefazolin Sodium (Ancef) 2 gm SLOW IVP Q8HR [facility] Last Admin: 03/31/18 05:55 Dose: 2 gm Diazepam (Valium) 5 mg PO Q4H PRN PRN Reason: FOR ASE 10 OR GREATER Enoxaparin Sodium (Lovenox) 40 mg SC 2100 [facility] Last Admin: 03/30/18 21:03 Dose: 40 mg Folic Acid (Folvite) 1 mg PO DAILY [facility] Last Admin: 03/31/18 08:23 Dose: 1 mg Potassium Chloride 40 meq/ (Sodium Chloride) 270 mls @ 135 mls/hr IVPB ASDIR PRN PRN Reason: FOR SERUM K+ 2.5 - 3.5 Potassium Chloride 40 meq/ (Device) 100 mls @ 50 mls/hr IVPB ASDIR PRN PRN Reason: FOR SERUM K+ 2.5 - 3.5 Magnesium Sulfate 1 gm/ Sodium (Chloride) 102 mls @ 102 mls/hr IV PRN PRN PRN Reason: MAG LEVEL 1.4 - 2.0 Magnesium Sulfate 2 gm/ Device 100 mls @ 100 mls/hr IVPB ASDIR PRN PRN Reason: MAGNESIUM < 1.4 Potassium Phosphate 9 mmol/ (Sodium Chloride) 103 mls @ 25.75 mls/hr IVPB ASDIR PRN PRN Reason: Phosphate 1.0-1.8 Potassium Phosphate 12 mmol/ (Sodium Chloride) 254 mls @ 63.5 mls/hr IV ASDIR PRN PRN Reason: Serum phosphate 0.5-0.9 Potassium Phosphate 15 mmol/ (Sodium Chloride) 255 mls @ 63.75 mls/hr IV ASDIR PRN PRN Reason: Serum Phos < 0.5 Ibuprofen (Motrin) 600 mg PO Q6H PRN PRN Reason: Moderate Pain (4-5) Magnesium Oxide (Magnesium Oxide) 400 mg PO DAILY [facility] Last Admin: 03/31/18 08:18 Dose: 400 mg Magnesium Oxide (Magnesium Oxide) 400 mg PO BIDPRN PRN PRN Reason: FOR SERUM MAG 1.4 - 2.0 Magnesium Oxide (Magnesium Oxide) 800 mg PO PRN PRN PRN Reason: FOR SERUM MAG < 1.4 Miscellaneous Medication (Phos-Nak) 1 pkt PO TIDPRN PRN PRN Reason: FOR PHOS LEVEL 1.0 - 1.8 Miscellaneous Medication (Phos-Nak) 2 pkt PO TIDPRN PRN PRN Reason: FOR PHOS LEVEL 0.5 - 1.0 Multivitamins (Theragran) 1 tab PO DAILY [facility] Last Admin: 03/31/18 08:17 Dose: 1 tab Ccu Electrolyte (Replacement Protocol) 0 each FS PRN PRN PRN Reason: FOR ELECTROLYTE REPLACEMENT Ondansetron HCl (Zofran) 4 mg IVP Q6H PRN PRN Reason: Nausea/Vomiting Pantoprazole Sodium (Protonix) 40 mg PO DAILY [facility] Last Admin: 03/31/18 08:23 Dose: 40 mg Potassium Chloride (K-Dur) 40 meq PO ASDIR PRN PRN Reason: FOR SERUM K+ 2.5 - 3.5 Potassium Chloride (Klor-Con) 40 meq PER TUBE ASDIR PRN PRN Reason: FOR SERUM K+ 2.5-3.5 Sodium Chloride (Flush - Normal Saline) 10 ml IVF Q12HR [facility] Last Admin: 03/31/18 08:23 Dose: 10 ml Sodium Chloride (Flush - Normal Saline) 10 ml IVF PRN PRN PRN Reason: Saline Flush Last Admin: 03/29/18 05:40 Dose: 10 ml Thiamine HCl (Thiamine) 100 mg PO DAILY [facility] Last Admin: 03/31/18 08:23 Dose: 100 mg Tramadol HCl (Ultram) 50 mg PO Q6H PRN PRN Reason: Moderate Pain (6-7) Last Admin: 03/31/18 01:20 Dose: 50 mg Tramadol HCl (Ultram) 100 mg PO Q6H PRN PRN Reason: Severe Pain (8-10) Last Admin: 03/31/18 07:17 Dose: 100 mg Zinc Sulfate (Zinc Sulfate) 220 mg PO DAILY [facility] Last Admin: 03/31/18 08:18 Dose: 220 mg
[2018-03-31] MEDS: Acetaminophen 500 MG TAB PO PRN (18:36)
[2018-03-31] MEDS: Enoxaparin Sodium 40 MG/0.4 ML SYRINGE SC SCH (20:59)
[2018-04-01] MEDS: traMADol HCl 50 MG TAB PO PRN ×2 (01:57→12:49)
[2018-04-01] MEDS: CEFAZOLIN/Water 2 GM/20 ML SYRINGE SLOW IVP SCH ×2 (05:26→15:38)
[2018-04-01 06:26] LABS: Anion Gap 11 mmol/L (10-20); BUN (Urea Nitrogen) Less than 4 mg/dL (8.4-25.7); Calc. Creatinine Clearance 141 mL/min (70-130); Calcium 8.1 mg/dL (7.8-10.44); Carbon Dioxide 27 mmol/L (23-31); Chloride 97 mmol/L (98-107); Estimated GFR-MDRD Greater than 90; Glucose 100 mg/dL (80-115); Magnesium 1.3 mg/dL (1.6-2.6); Potassium 3.8 mmol/L (3.5-5.1); Sodium 131 mmol/L (136-145)
[2018-04-01] MEDS: Acetaminophen 500 MG TAB PO PRN ×2 (06:32→16:19)
[2018-04-01] MEDS: Folic Acid 1 MG TAB PO SCH (09:15)
[2018-04-01] MEDS: Magnesium Oxide 400 MG TAB PO SCH (09:15)
[2018-04-01] MEDS: Multivit, Therapeutic 1 TAB PO SCH (09:16)
[2018-04-01] MEDS: Zinc Sulfate 220 MG CAP PO SCH (09:16)
[2018-04-01 11:52] VITALS: TEMP 98.6
--- NOTE | 2018-04-01 13:13 | PDOC.PN ---
- Subjective Encounter Start Date: 04/01/18 Encounter Start Time: 13:12 Subjective: no new complaints. pain controlled in left arm,but still swollen -: able to use hand but difficult w swelling -: no F/C.no CP/SOB - Objective Resuscitation Status: Resuscitation Status FULL:Full Resuscitation MAR Reviewed: Yes Vital Signs & Weight: Vital Signs (12 hours) Temp Pulse Resp BP BP Pulse Ox 04/01/18 12:05 107/71 04/01/18 11:51 98.6 F 97 20 107/71 100 04/01/18 08:05 127/79 04/01/18 07:50 98.3 F 81 16 97 04/01/18 07:43 98.3 F 81 16 127/79 97 04/01/18 04:00 98.4 F 89 20 110/76 110/76 99 Weight Admit Weight 186 lb 6.4 oz Weight 181 lb Most Recent Monitor Data Heart Rate from ECG 90 NIBP 105/66 NIBP BP-Mean 76 Respiration from ECG 13 SpO2 98 I&O: 03/31/18 04/01/18 04/02/18 06:59 06:59 06:59 Intake Total 450 1770 Output Total 850 Balance -400 1770 Result Diagrams: 03/31/18 04:20 04/01/18 06:06 Additional Labs: Microbiology 03/24/18 14:20 Arm - Abscess Bacterial Culture - Final 03/24/18 14:20 Arm - Abscess Anaerobic Culture - Final Beta-hemolytic strep group A 03/22/18 19:00 Venous blood - Right Hand Blood Culture - Final NO GROWTH IN 5 DAYS 03/22/18 18:48 Venous blood - Right Arm Blood Culture - Final NO GROWTH IN 5 DAYS labs reviewed Phys Exam - Physical Examination Constitutional: NAD HEENT: PERRLA, moist MMs, sclera anicteric, oral pharynx no lesions Neck: no nodes, no JVD, supple, full ROM Respiratory: no wheezing, no rales, no rhonchi, clear to auscultation bilateral Cardiovascular: RRR, no significant murmur, no rub Gastrointestinal: soft, non-tender, no distention, positive bowel sounds Musculoskeletal: pulses present, edema present (Left arm.+2 radial pulse .dressing on entire arm and forearm) Neurological: non-focal, normal sensation, moves all 4 limbs Psychiatric: normal affect, A&O x 3 Skin: no rash Dx/Plan (1) Sepsis Code(s): A41.9 - SEPSIS, UNSPECIFIED ORGANISM Status: Acute Comment: likely due to cellulitis (2) Necrotizing fasciitis due to Streptococcus pyogenes Code(s): M72.6 - NECROTIZING FASCIITIS; B95.0 - STREPTOCOCCUS, GROUP A, CAUSING DISEASES CLASSD ELSWHR Status: Acute (3) Cellulitis Code(s): L03.90 - CELLULITIS, UNSPECIFIED Status: Acute Comment: continue IV antibiotics as below (4) Paroxysmal third degree AV block Status: Acute Comment: Resolved. EP eval done. ECHO w NL EF (5) Hypomagnesemia Code(s): E83.42 - HYPOMAGNESEMIA Status: Acute Comment: replace magnesium (6) Hyponatremia Code(s): E87.1 - HYPO-OSMOLALITY AND HYPONATREMIA Status: Acute Comment: Improving, continue IV fluids as below, continue to monitor lytes (7) Macrocytic anemia Code(s): D53.9 - NUTRITIONAL ANEMIA, UNSPECIFIED Status: Chronic Comment: Likley due to alcohal abuse induced FA /B12 deficeincy.On supplementation (8) Alcohol abuse Code(s): F10.10 - ALCOHOL ABUSE, UNCOMPLICATED Status: Acute Comment: ASE protocol.Monitor for S/S of withdrawl.PRN Valium.Cont MV,Thiamine and Folic Acid - Plan continue antibiotics, out of bed/ambulate, DVT proph w/SCDs Hemodynamically stable and cleared for DC.awaiting arrangment of wound Vac -: cont Ancef for now for Grp A Strept infection. -: replace Mag and recheck. Sodium better -: cot meds as below * . Review of Systems - Review of Systems Constitutional: negative: fever, chills, sweats, weakness, malaise, other ENT: negative: Ear Pain, Ear Discharge, Nose Pain, Nose Discharge, Nose Congestion, Mouth Pain, Mouth Swelling, Throat Pain, Throat Swelling, Other Respiratory: negative: Cough, Dry, Shortness of Breath, Hemoptysis, SOB with Excertion, Pleuritic Pain, Sputum, Wheezing Cardiovascular: negative: chest pain, palpitations, orthopnea, paroxysmal nocturnal dyspnea, edema, light headedness, other Gastrointestinal: negative: Nausea, Vomiting, Abdominal Pain, Diarrhea, Constipation, Melena, Hematochezia, Other Genitourinary: negative: Dysuria, Frequency, Incontinence, Hematuria, Retention , Other Musculoskeletal: negative: Neck Pain, Shoulder Pain, Arm Pain, Back Pain, Hand Pain, Leg Pain, Foot Pain, Other Skin: negative: Rash, Lesions, Jean, Bruising, Other Neurological: negative: Weakness, Numbness, Incoordination, Change in Speech, Confusion, Seizures, Other - Medications/Allergies Allergies/Adverse Reactions: Allergies Allergy/AdvReac Type Severity Reaction Status Date / Time No Known Drug Allergies Allergy Verified 03/22/18 23:06 Medications: Current Medications Acetaminophen (Tylenol) 1,000 mg PO Q6H PRN PRN Reason: Mild Pain (1-3) Last Admin: 04/01/18 06:32 Dose: 1,000 mg Albuterol/Ipratropium (Duoneb) 3 ml NEB Q4H PRN PRN Reason: WHEEZE/DYSPNEA Cefazolin Sodium (Ancef) 2 gm SLOW IVP Q8HR [facility] Last Admin: 04/01/18 05:26 Dose: 2 gm Diazepam (Valium) 5 mg PO Q4H PRN PRN Reason: FOR ASE 10 OR GREATER Enoxaparin Sodium (Lovenox) 40 mg SC 2100 [facility] Last Admin: 03/31/18 20:59 Dose: 40 mg Folic Acid (Folvite) 1 mg PO DAILY [facility] Last Admin: 04/01/18 09:15 Dose: 1 mg Potassium Chloride 40 meq/ (Sodium Chloride) 270 mls @ 135 mls/hr IVPB ASDIR PRN PRN Reason: FOR SERUM K+ 2.5 - 3.5 Potassium Chloride 40 meq/ (Device) 100 mls @ 50 mls/hr IVPB ASDIR PRN PRN Reason: FOR SERUM K+ 2.5 - 3.5 Magnesium Sulfate 1 gm/ Sodium (Chloride) 102 mls @ 102 mls/hr IV PRN PRN PRN Reason: MAG LEVEL 1.4 - 2.0 Magnesium Sulfate 2 gm/ Device 100 mls @ 100 mls/hr IVPB ASDIR PRN PRN Reason: MAGNESIUM < 1.4 Potassium Phosphate 9 mmol/ (Sodium Chloride) 103 mls @ 25.75 mls/hr IVPB ASDIR PRN PRN Reason: Phosphate 1.0-1.8 Potassium Phosphate 12 mmol/ (Sodium Chloride) 254 mls @ 63.5 mls/hr IV ASDIR PRN PRN Reason: Serum phosphate 0.5-0.9 Potassium Phosphate 15 mmol/ (Sodium Chloride) 255 mls @ 63.75 mls/hr IV ASDIR PRN PRN Reason: Serum Phos < 0.5 Ibuprofen (Motrin) 600 mg PO Q6H PRN PRN Reason: Moderate Pain (4-5) Magnesium Oxide (Magnesium Oxide) 400 mg PO DAILY [facility] Last Admin: 04/01/18 09:15 Dose: 400 mg Magnesium Oxide (Magnesium Oxide) 400 mg PO BIDPRN PRN PRN Reason: FOR SERUM MAG 1.4 - 2.0 Magnesium Oxide (Magnesium Oxide) 800 mg PO PRN PRN PRN Reason: FOR SERUM MAG < 1.4 Miscellaneous Medication (Phos-Nak) 1 pkt PO TIDPRN PRN PRN Reason: FOR PHOS LEVEL 1.0 - 1.8 Miscellaneous Medication (Phos-Nak) 2 pkt PO TIDPRN PRN PRN Reason: FOR PHOS LEVEL 0.5 - 1.0 Multivitamins (Theragran) 1 tab PO DAILY [facility] Last Admin: 04/01/18 09:16 Dose: 1 tab Ccu Electrolyte (Replacement Protocol) 0 each FS PRN PRN PRN Reason: FOR ELECTROLYTE REPLACEMENT Ondansetron HCl (Zofran) 4 mg IVP Q6H PRN PRN Reason: Nausea/Vomiting Pantoprazole Sodium (Protonix) 40 mg PO DAILY [facility] Last Admin: 04/01/18 09:16 Dose: 40 mg Potassium Chloride (K-Dur) 40 meq PO ASDIR PRN PRN Reason: FOR SERUM K+ 2.5 - 3.5 Potassium Chloride (Klor-Con) 40 meq PER TUBE ASDIR PRN PRN Reason: FOR SERUM K+ 2.5-3.5 Sodium Chloride (Flush - Normal Saline) 10 ml IVF Q12HR [facility] Last Admin: 04/01/18 09:16 Dose: 10 ml Sodium Chloride (Flush - Normal Saline) 10 ml IVF PRN PRN PRN Reason: Saline Flush Last Admin: 04/01/18 05:27 Dose: 10 ml Thiamine HCl (Thiamine) 100 mg PO DAILY [facility] Last Admin: 04/01/18 09:16 Dose: 100 mg Tramadol HCl (Ultram) 50 mg PO Q6H PRN PRN Reason: Moderate Pain (6-7) Last Admin: 04/01/18 01:57 Dose: 50 mg Tramadol HCl (Ultram) 100 mg PO Q6H PRN PRN Reason: Severe Pain (8-10) Last Admin: 04/01/18 12:49 Dose: 100 mg Zinc Sulfate (Zinc Sulfate) 220 mg PO DAILY [facility] Last Admin: 04/01/18 09:16 Dose: 220 mg
[2018-04-01 15:24] VITALS: BP 118/68
--- NOTE | 2018-04-03 04:39 | DIS ---
DATE OF ADMISSION: 03/22/2018 DATE OF DISCHARGE: 04/01/2018 CONDITION AT THE TIME OF DISCHARGE: Stable and improved. DISCHARGE DIAGNOSES: 1. Sepsis. 2. Left arm cellulitis and necrotizing fasciitis, status post surgical incision and drainage and wou nd VAC application. 3. Paroxysmal third degree AV block resolved without any reoccurrence. 4. Hypomagnesemia. 5. Hyponatremia. 6. Microcytic anemia. 7. History of alcohol abuse. DISCHARGE DISPOSITION: Home with [facility] and wound VAC. DISCHARGE MEDICATIONS: Keflex 500 mg q.i.d. for 7 more days. INHOUSE CONSULTATIONS: 1. General Surgery, Dr. Haque. 2. Pulmonary Critical Care, Dr. Benitez. 3. Cardiology, Dr. Sheth. 4. Electrophysiology, Dr. Burnham. PROCEDURES DONE IN THE HOSPITAL: 1. Right subclavian triple lumen catheter placement and debridement of skin and subcutaneous tissue of left forearm and draining of the abscess on 03/24/[address] Haque. 2. Transthoracic echocardiogram which shows EF of 60% and no cardiac abnormalities. HISTORY OF PRESENT ILLNESS: Mr. Berg is a 62-year-old male without any significant past medical hi story who presented to the ER with complaints of left upper extremity swelling and pain associated wi th decreased range of motion, swelling, and redness. He reported blisters and excoriation in those a reas. Upon presentation, he had leukocytosis with left shift. His BUN and creatinine were elevated. Lactic acid was 2.6. He was found to have extensive warmth and erythema of his left upper extremit y. He was admitted with a presumptive diagnosis of sepsis and left upper extremity cellulitis. He a lso has history of alcohol abuse and sodium was found to be 117 with a potassium of 2.4 at the time o f admission. Please see admission history and physical for further details. HOSPITAL COURSE: General Surgery was consulted with regards to possibility of severe infection in hi s left arm, possibly necrotizing fasciitis. Dr. Haque saw the patient and agreed with the need for debridement, which was done on 03/24/2018. A wound VAC was applied and he was continued on IV antibi otics. Cultures were sent. The patient was noticed to have very slow heart rate while in the hospital and Cardiology was consult ed with regards to that. He was found to have symptomatic third degree AV block and EP was consulted by departmental shipping clerk. Dr. Burnham saw the patient and he underwent an echocardiogram which was unremarkable . Dr. Burnham reviewed all of his strips and EKG and it was found out that the AV block was episodic. It was decided by them that this would be just medically managed and monitored. Outpatient followup will be done as necessary. It was decided that pacemaker would not be needed, especially in the ligh t of sepsis and infection. The patient was also seen by Infectious Disease, Dr. Garcia for antibiotic recommendations. He sugges luis continuing Ancef in the hospital and changing it to Keflex based on his culture results. His wou nd culture came back positive for group A beta hemolytic streptococcus. The patient stabilized and was ready to discharge, but the discharge was delayed by several days as w ound care could not be arranged for him. He was uninsured and eventually with the help of the [facility] and wound VAC was arranged for the patient. He will be seen by outpatient [facility] at [place] and wound VAC was delivered to his hospital room prior to discharge. He was seen and examined prior to discharge. All questions were answered. Discharge plan was discus sed with the patient who verbalized understanding. Please see Hospitalist progress note from the lizzeth e of discharge for further detail including [id number] interaction. Total time spent in the discharge of this patient 34 minutes.
== END 2018-04-01 20:28 | disposition home or self-care (01) | DRG 853 ==
LOC: ERS 17:55 → 2NO 20:10 → CCU 03-24 10:48 → 2SE 03-27 17:55 → UNDODISIN 03-28 16:32
PROVIDERS: ADMIT Hospitalist; ATTEND Hospitalist
PROC: 0JBH0ZZ Excision of Left Lower Arm Subcutaneous Tissue and Fascia, Open Approach (ICD-10-PCS; principal; 2018-03-24)
PROC: 05H533Z Insertion of Infusion Device into Right Subclavian Vein, Percutaneous Approach (ICD-10-PCS; 2018-03-24)
DX: A41.9 Sepsis, unspecified organism (principal); M72.6 Necrotizing fasciitis; I44.2 Atrioventricular block, complete; E87.1 Hypo-osmolality and hyponatremia; N17.9 Acute kidney failure, unspecified; L03.114 Cellulitis of left upper limb; E87.2 Acidosis; B95.4 Other streptococcus as the cause of diseases classified elsewhere; E83.42 Hypomagnesemia; D53.9 Nutritional anemia, unspecified; F10.10 Alcohol abuse, uncomplicated; Y90.9 Presence of alcohol in blood, level not specified; I10 Essential (primary) hypertension; R26.9 Unspecified abnormalities of gait and mobility; E87.6 Hypokalemia; D50.9 Iron deficiency anemia, unspecified; F32.9 Major depressive disorder, single episode, unspecified; F17.210 Nicotine dependence, cigarettes, uncomplicated
CPT/HCPCS: 36415; 71045; 80048; 80053; 80202; 80306; 82248; 82607; 82746; 83090; 83605; 83735; 85025; 86780; 86803; 87040; 87070; 87077; 87205; 87389; 90471; 90732; 93005; 93010; 93306; 94640; 96365; 96367; 96374; A4216; G0009; G8978-GP-CL; G8979-GP-CJ; G8987-GO-CK; G8988-GO-CI; J0692; J0696; J1100; J1650; J2001; J2543; J2704; J3010; J3370; J3411; J3475; J3480; J3490; J7050; J7620

== ENCOUNTER 2018-04-05 09:51 | Outpatient (CLI) | payer SELFPAY ==
[2018-04-05] MEDS ORDERED: Sodium Chloride 0.9% 15 ML NEB ONE (18:00)
== END 2018-04-05 09:52 | disposition home or self-care (01) ==
LOC: WCC 09:51
PROVIDERS: ATTEND Family Medicine
DX: T81.89XD Other complications of procedures, not elsewhere classified, subsequent encounter (principal)
CPT/HCPCS: 97605; A4218

== ENCOUNTER 2018-04-08 07:43 | Outpatient (CLI) | payer SELFPAY ==
[2018-04-08] MEDS ORDERED: Sodium Chloride 0.9% 15 ML NEB ONE (09:00)
--- NOTE | 2018-04-08 10:30 | HP ---
DATE OF SERVICE: 04/08/2018 HISTORY OF PRESENT ILLNESS: Mr. Leopoldo Berg is a very pleasant 62-year-old gentleman who pr esents to the Wound Center for evaluation of multiple wounds of the left upper extremity, subsequent to surgery for necrotizing fasciitis of the left arm. Negative pressure therapy was initiated intrao peratively. Upon discharge from [facility], the patient was referred to the W ound Center for assistance with dressing changes of the wound VAC. The patient was discharged to [facility] on Keflex 500 mg p.o. q.i.d. for 7 days. PAST MEDICAL HISTORY: 1. COPD. 2. Osteoarthritis. 3. Anemia. PAST SURGICAL HISTORY: 1. Tonsillectomy and adenoidectomy. 2. Surgery for necrotizing fasciitis of left arm as per HPI. MEDICATIONS: 1. Multivitamin. 2. Acetaminophen. 3. Keflex. ALLERGIES: No known diagnosed allergies. SOCIAL HISTORY: Significant for tobacco use of 2-3 cigars per day for 15 years. The patient admits to the consumption of 3-4 drinks per day for 50 years. FAMILY HISTORY: Negative for diabetes mellitus or coronary artery disease. PHYSICAL EXAMINATION: VITAL SIGNS: Temperature 97.6, pulse 113, respirations 15, blood pressure 135/66. GENERAL: A 62-year-old gentleman lying on table in examination room in no acute distress. HEENT: Normocephalic, atraumatic. NECK: No nuchal rigidity. CHEST: Clear to auscultation. CARDIAC: Regular rate and rhythm. ABDOMEN: Soft. EXTREMITIES: Four wounds of the left upper extremity are present subsequent to surgery for necrotizi ng fasciitis of the left arm. Granulation tissue is present within the margins of each wound. No pu rulent drainage is associated with any of the wounds. Erythema of the skin surrounding the largest w ound is present on exam today. No maceration of the skin of the periwound of any of the wounds is no luis. Edema of the left upper extremity is also noted on today's exam. ASSESSMENT AND PLAN: 1. Four wounds of left upper extremity as described above, subsequent to surgery for necrotizing fas ciitis of the left arm. Negative pressure therapy was initiated intraoperatively and will be continu ed with dressing changes of the wound VAC here in the Wound Center. The patient has been reminded to continue Keflex as previously prescribed. The patient will be seen by Dr. Haque in 1 week. I will see Mr. Berg again in 2 weeks. 2. Chronic obstructive pulmonary disease. 3. Osteoarthritis. 4. Anemia.
== END 2018-04-08 07:44 | disposition home or self-care (01) ==
LOC: WCC 07:43
PROVIDERS: ATTEND Family Medicine
DX: T81.89XD Other complications of procedures, not elsewhere classified, subsequent encounter (principal); J44.9 Chronic obstructive pulmonary disease, unspecified; M19.90 Unspecified osteoarthritis, unspecified site; D64.9 Anemia, unspecified
CPT/HCPCS: A4218

== ENCOUNTER 2018-04-11 08:07 | Outpatient (CLI) | payer SELFPAY | END 2018-04-11 08:08 | disposition home or self-care (01) | LOC: WCC 08:07 | PROVIDERS: ATTEND Family Medicine | DX: T81.89XD Other complications of procedures, not elsewhere classified, subsequent encounter (principal); M72.6 Necrotizing fasciitis | CPT/HCPCS: 97605 ==

== ENCOUNTER 2018-04-15 14:42 | Outpatient (CLI) | payer SELFPAY | END 2018-04-15 14:43 | disposition home or self-care (01) | LOC: WCC 14:42 | PROVIDERS: ATTEND Family Medicine | DX: T81.89XD Other complications of procedures, not elsewhere classified, subsequent encounter (principal) | CPT/HCPCS: 97605 ==

== ENCOUNTER 2018-04-18 12:43 | Outpatient (CLI) | payer SELFPAY | END 2018-04-18 12:44 | disposition home or self-care (01) | LOC: WCC 12:43 | PROVIDERS: ATTEND Family Medicine | DX: T81.89XD Other complications of procedures, not elsewhere classified, subsequent encounter (principal); J44.9 Chronic obstructive pulmonary disease, unspecified; M19.90 Unspecified osteoarthritis, unspecified site; D64.9 Anemia, unspecified | CPT/HCPCS: 97605 ==

== ENCOUNTER 2018-04-22 13:01 | Outpatient (CLI) | payer OTHER, SELFPAY ==
--- NOTE | 2018-04-22 14:06 | PRG ---
DATE OF SERVICE: 04/22/2018 HISTORY: Mr. Leopoldo Berg is a very pleasant 62-year-old gentleman who presents to the Wound Center for evaluation of multiple wounds of the left upper extremity, subsequent to surgery for necr otizing fasciitis of the left arm. Negative pressure therapy was initiated intraoperatively. Upon d ischarge from [facility], the patient was referred to the Wound Center for ass istance with dressing changes of the wound VAC. The patient was discharged home on Keflex 500 mg p.o . q.i.d. for 7 days. PHYSICAL EXAMINATION: VITAL SIGNS: Temperature 97.9, pulse 97, respirations 22, blood pressure 124/70. EXTREMITIES: Three wounds of the left upper extremity are present subsequent to surgery for necrotiz ing fasciitis of the left arm. Granulation tissue is present within the margins of each wound. No p urulent drainage is associated with any of the wounds. Erythema of the skin surrounding the wounds i s present and appears to be secondary to irritation of the skin from the drape applied with the wound VAC. No maceration of the skin of the periwound of any of the wounds is noted. Edema of the left u pper extremity is also noted on exam today. ASSESSMENT AND PLAN: 1. Three wounds of left upper extremity as described above, subsequent to surgery for necrotizing fa sciitis of the left arm. Negative pressure was initiated intraoperatively and will be continued with dressing changes of the wound VAC here in the Wound Center. The patient will be seen by Dr. Haque in 1 week. I will see Mr. Berg again in two weeks. 2. Chronic obstructive pulmonary disease. 3. Osteoarthritis. 4. Anemia.
== END 2018-04-22 13:02 | disposition home or self-care (01) ==
LOC: WCC 13:01
PROVIDERS: ATTEND Family Medicine
DX: T81.89XD Other complications of procedures, not elsewhere classified, subsequent encounter (principal); J44.9 Chronic obstructive pulmonary disease, unspecified; M19.90 Unspecified osteoarthritis, unspecified site; D64.9 Anemia, unspecified
CPT/HCPCS: 97605

== ENCOUNTER 2018-04-25 12:40 | Outpatient (CLI) | payer SELFPAY | END 2018-04-25 12:41 | disposition home or self-care (01) | LOC: WCC 12:40 | PROVIDERS: ATTEND Family Medicine | DX: T81.89XD Other complications of procedures, not elsewhere classified, subsequent encounter (principal) | CPT/HCPCS: 97605 ==

== ENCOUNTER 2018-05-16 09:06 | Outpatient (CLI) | payer SELFPAY ==
--- NOTE | 2018-05-16 09:51 | PRG ---
DATE OF SERVICE: 05/16/2018 HISTORY: Mr. Leopoldo Berg is a very pleasant 63-year-old gentleman who presents to the [facility] for evaluation of multiple wounds of the left upper extremity subsequent to fasciitis of the left arm. Negative pressure therapy was initiated intraoperatively. Upon discharge from [facility], the patient was referred to the Wound Center for assistance with dressing enrique nges of the wound VAC. The patient was discharged home on Keflex 500 mg p.o. q.i.d. for 7 days. The patient has completed a course of negative pressure therapy and is now performing wet to dry dressin g changes as per Dr. Haque. PHYSICAL EXAMINATION: VITAL SIGNS: Temperature 97.7, pulse 91, respirations 18, blood pressure 138/79. EXTREMITIES: Only one wound of the left forearm remains. Granulation tissue is present within the w ound margins. No purulent drainage is associated with the wound. No cellulitis of the left forearm is present. No maceration of the skin of the periwound is noted. No significant edema of the left u pper extremity is present on exam today. ASSESSMENT AND PLAN: 1. Wound of left forearm as described above, subsequent to surgery for necrotizing fasciitis of the left arm. The patient has completed a course of negative pressure therapy and wet to dry dressing ch anges as per Dr. Haque will be continued. I will see Mr. Berg again in two weeks. 2. Chronic obstructive pulmonary disease. 3. Osteoarthritis. 4. Anemia.
[2018-05-16] MEDS ORDERED: Sodium Chloride 0.9% 15 ML NEB ONE (12:36)
== END 2018-05-16 09:07 | disposition home or self-care (01) ==
LOC: WCC 09:06
PROVIDERS: ATTEND Family Medicine
DX: T81.89XD Other complications of procedures, not elsewhere classified, subsequent encounter (principal); J44.9 Chronic obstructive pulmonary disease, unspecified; M19.90 Unspecified osteoarthritis, unspecified site; D64.9 Anemia, unspecified
CPT/HCPCS: A4218

== ENCOUNTER 2018-06-06 14:53 | Outpatient (CLI) | payer SELFPAY ==
--- NOTE | 2018-06-06 18:30 | PRG ---
DATE OF SERVICE: 06/06/2018 HISTORY: Mr. Leopoldo Berg is a very pleasant 63-year-old gentleman, who presents to the [facility] for evaluation of multiple wounds of the left upper extremity, subsequent to surgery for nec rotizing fasciitis of the left arm. Negative pressure therapy was initiated intraoperatively. Upon discharge from [facility], the patient was referred to the Wound Center for as sistance with dressing changes of the wound VAC. The patient was discharged to home on Keflex 500 mg p.o. q.i.d. for 7 days. The patient has completed a course of negative pressure therapy and is now performing wet to dry dressing changes as per Dr. Haque. PHYSICAL EXAMINATION: VITAL SIGNS: Temperature 97.5, pulse 92, respirations 20, blood pressure 119/76. EXTREMITIES: Only one wound of the left forearm remains, which measures approximately 1.0 x 0.5 cm. Eschar covers the entire wound bed of the left forearm ulceration. No purulent drainage is associat ed with the wound. No cellulitis of the left forearm is present. No maceration of the skin of the p eriwound is noted. No significant edema of the left upper extremity is present on exam today. ASSESSMENT AND PLAN: 1. Wound of left forearm as described above, subsequent to surgery for necrotizing fasciitis of the left arm. Wet to dry dressing changes will be discontinued. The patient has been instructed to keep his wound clean, dry and covered until the ulceration has completely healed. The patient will be di scharged from clinic today with followup on a p.r.n. basis. The patient has been reassured that the wound has almost completely healed. 2. Chronic obstructive pulmonary disease. 3. Osteoarthritis. 4. Anemia.
[2018-06-06] MEDS ORDERED: Sodium Chloride 0.9% 15 ML NEB ONE (20:25)
== END 2018-06-06 14:54 | disposition home or self-care (01) ==
LOC: WCC 14:53
PROVIDERS: ATTEND Family Medicine
DX: Z48.817 Encounter for surgical aftercare following surgery on the skin and subcutaneous tissue (principal); J44.9 Chronic obstructive pulmonary disease, unspecified; M19.90 Unspecified osteoarthritis, unspecified site; D64.9 Anemia, unspecified
CPT/HCPCS: 97602; A4218

== ENCOUNTER 2018-06-27 11:08 | Emergency (ER) | payer OTHER, SELFPAY ==
[2018-06-27 11:56] LABS: Bilirubin Negative (Negative); Blood, Urine Negative (Negative); Clarity CLEAR (Clear); Glucose, Urine (Dipstick) Negative (Negative); Leukocyte Negative (Negative); Nitrite Negative (Negative); Protein, Urine (Dipstick) Negative (Neg-Trace); Specific Gravity, Urine 1.013 (1.002-1.036); Urobilinogen 0.2 mg/dL (0.2-1.0); pH, Urine 6.5 (5.0-9.0)
--- NOTE | 2018-06-27 12:31 | RAD ---
PA AND LATERAL CHEST: History: Trauma. Chest pain. Comparison: 03-24-18 History: Heart size and mediastinum within normal limits. The lungs are clear of any infiltrates. Old left rib fractures are seen. Compression changes along the thoracic vertebral bodies, probably T12, is noted. I do not appreciate these changes on a CT examination of 02-20-18. IMPRESSION: 1. Mild wedge shaped compression deformity of what is probably T12. Age indeterminate. 2. No active intrathoracic disease. POS: [facility]
== END 2018-06-27 13:08 | disposition home or self-care (01) ==
LOC: ERS 11:08
DX: S20.219A Contusion of unspecified front wall of thorax, initial encounter (principal); R33.9 Retention of urine, unspecified; F17.210 Nicotine dependence, cigarettes, uncomplicated; W19.XXXA Unspecified fall, initial encounter
CPT/HCPCS: 51702; 71046; 81003

== ENCOUNTER 2019-07-29 14:08 | Outpatient (CLI) | payer MEDICAID ==
--- NOTE | 2019-07-29 15:45 | MRI ---
Cervical spine MRI without contrast: 03/28/2019 COMPARISON: 03/09/2012 HISTORY: Spinal stenosis, numbness in bilateral arms, radiculopathy TECHNIQUE: Multiplanar multisequence MR imaging of the cervical spine without contrast FINDINGS: The sagittal STIR imaging demonstrates no focal area of osseous marrow edema. There is ill- defined increased STIR signal adjacent to the right C7-T1 facet joint which may be inflammatory in nature or on the basis of prior facet joint injection. There is moderate degenerative change at the atlantoaxial interspace. C2-3: There is disc desiccation. No significant central canal stenosis. Facet and uncovertebral osteo phyte formation noted, left greater than right. Mild left neural foraminal stenosis. C3-4: Disc space narrowing and disc desiccation with 2-3 mm of stable anterolisthesis. Motion artifac t limits assessment for central canal and neural foraminal stenosis. There is at least mild central canal stenosis. Facet and uncovertebral osteophyte formation noted bilaterally with moderate/severe b ilateral neural foraminal stenosis. C4-5: Disc space narrowing with disc desiccation. Probable mild/moderate central canal stenosis. Face t and uncovertebral osteophyte formation with probable severe bilateral neural foraminal stenosis, limited in assessment secondary to motion artifact. C5-6: Disc space narrowing with disc desiccation and anterior osteophyte formation. Disc osteophyte c omplex present with moderate/severe stable central canal stenosis. Facet and uncovertebral osteophyte formation bilaterally causes severe bilateral neural foraminal stenosis. C6-7: Disc space narrowing and disc desiccation with disc bulge and moderate/severe central canal estuardo nosis as well as severe bilateral neural foraminal stenosis on the basis of facet and uncovertebral osteophyte formation. C7-T1: There is disc space narrowing with disc desiccation and mild disc bulge with moderate central canal stenosis, progressed since the prior exam. There is 3-4 mm of anterolisthesis, progressed as well. Severe bilateral neural foraminal stenosis. T2-3 level demonstrates disc space narrowing with disc desiccation and disc bulge as well as mild ant erolisthesis and severe central canal stenosis with mass effect on the upper thoracic cord. There is also severe bilateral neural foraminal stenosis. There may be a stable subtle abnormal signal inte nsity within the thoracic cord in this region. There is a stable nonspecific lesion within the subcutaneous fat posteriorly measuring 3.3 cm posteri mark and a midline location at the axial level. There is a degree of compression of the cervical cord at C5-6, C6-7, and C7-T1. IMPRESSION: Severe degenerative change within the cervical spine with multilevel severe central canal and neural foraminal stenosis. There is also severe central canal stenosis at T2-3 with mass effect on the upper thoracic cord and probable increased T2 signal within the thoracic cord in this r egion on the basis of compressive myelopathy.
--- NOTE | 2019-07-29 16:05 | MRI ---
Lumbar spine MRI without contrast: 07/29/2019 COMPARISON: Lumbar spine CT 02/20/2018 HISTORY: Spinal stenosis, leg cramps TECHNIQUE: Multiplanar multisequence MR imaging of the lumbar spine without contrast FINDINGS: The sagittal STIR imaging demonstrates increased signal intensity within T12 and L1, primar darrel to the left of midline. The intervening disc demonstrates loss of height and desiccation. There is an inferior endplate fracture and/or Schmorl's node involving the T12 vertebral body which is new when compared to the prior CT examination. The increased signal intensity on STIR imaging suggests a degree of edema which may reflect acute/subacute fracture and/or edema on the basis of degenerative change. There is loss of vertebral body height anteriorly/centrally at the T12 level measuring approximately 50%. No significant anterolisthesis or retrolisthesis is noted. There is diffuse severe central canal stenosis throughout the lower thoracic spine and throughout the lumbar spine on the basis of congenitally short pedicles as well as extensive epidural fat, with epidural fat being quite prominent from the L1 level through the upper sacrum. T11-12: Disc space narrowing and disc desiccation with mild disc bulge. Severe central canal stenosis . Bilateral facet hypertrophy with mild bilateral neural foraminal stenosis. T12-L1: Disc space narrowing and disc desiccation with mild disc bulge and associated posterior osteo phyte. Mild bilateral facet hypertrophy. Severe central canal stenosis. Mild bilateral neural foraminal stenosis. L1-2: There is disc space narrowing and disc desiccation with disc osteophyte complex. There is sever e central canal stenosis. Mild right and moderate left neural foraminal stenosis on the basis of bilateral facet hypertrophy. L2-3: There is disc space narrowing and disc desiccation with a disc osteophyte complex. Bilateral fa cet hypertrophy. Mild left neural foraminal stenosis, severe central canal stenosis, and moderate right neural foraminal stenosis. L2-3: Disc space narrowing and disc desiccation with disc osteophyte complex. Severe central canal st enosis. Severe right and mild left neural foraminal stenosis. Bilateral facet hypertrophy. L4-5: Disc space narrowing and disc desiccation with mild disc bulge and severe central canal stenosi s. Prominent facet hypertrophy and hypertrophy of the ligamentum flavum with moderate right and severe left neural foraminal stenosis. L5-S1: Bilateral facet hypertrophy. No significant central canal or neural foraminal stenosis. Image retroperitoneal structures appear grossly unremarkable. IMPRESSION: Severe degenerative change noted with multilevel severe central canal and neural foramina l stenosis. Congenitally short pedicles and prominent lumbar spine epidural lipomatosis noted. There is marrow edema at the T12-L1 level as detailed above, likely degenerative in nature and or ass ociated with subacute Schmorl's node or inferior endplate fracture of T12.
== END 2019-07-29 14:09 | disposition home or self-care (01) ==
LOC: BICMRI 14:08
PROVIDERS: ATTEND Family Medicine
DX: M48.02 Spinal stenosis, cervical region (principal); M48.061 Spinal stenosis, lumbar region without neurogenic claudication; M47.816 Spondylosis without myelopathy or radiculopathy, lumbar region; M47.812 Spondylosis without myelopathy or radiculopathy, cervical region; M48.04 Spinal stenosis, thoracic region
CPT/HCPCS: 72141; 72148

== ENCOUNTER 2020-02-11 13:00 | Inpatient (IN) | payer OTHER ==
[2020-02-11 12:03] VITALS: BMI 31.9
[2020-02-16] MEDS ORDERED: Bacitracin Zinc Ointment 30 gm TUBE ONE (10:02)
[2020-02-16] MEDS ORDERED: Fentanyl 100 MCG/2 ML VIAL ONE ×4 (11:09→16:14)
[2020-02-16] MEDS ORDERED: HYDROmorphone 0.5 MG/0.5 ML SYRINGE ONE ×6 (11:09→16:57)
[2020-02-16] MEDS ORDERED: Glycopyrrolate 0.2 MG/ML 5 ML SYRINGE ONE (11:42)
[2020-02-16] MEDS ORDERED: EPHEDRINE 25 MG/5 ML SYRINGE ONE (11:42)
[2020-02-16] MEDS ORDERED: PROPOFOL 200 MG/20 ML VIAL ONE (11:42)
[2020-02-16] MEDS ORDERED: Dexamethasone 20 MG/5 ML VIAL ONE (11:42)
[2020-02-16] MEDS ORDERED: Lidocaine 1% PF 5 ML VIAL ONE (11:42)
[2020-02-16] MEDS ORDERED: Ondansetron PF 4 MG/2 ML Vial ONE (11:42)
[2020-02-16] MEDS ORDERED: PHENYLEPHRINE-NS 100 MCG/ML 10 ML SYRINGE ONE ×3 (11:42→14:48)
[2020-02-16] MEDS ORDERED: Rocuronium Bromide 10 MG/ML (10ML VIAL) ONE (11:42)
[2020-02-16] MEDS ORDERED: Morphine 4 MG/ML VIAL SLOW IVP PRN (15:58)
[2020-02-16] MEDS ORDERED: traMADol HCl 50 MG TAB PO PRN ×2 (15:58)
[2020-02-16] MEDS ORDERED: Mag-Al 1200 mg/1200 mg/30 ML UDCUP PO PRN (15:58)
[2020-02-16] MEDS ORDERED: Promethazine HCl 12.5 MG SUPP PR PRN (15:58)
[2020-02-16] MEDS ORDERED: Promethazine 25 MG TAB PO PRN (15:58)
[2020-02-16] MEDS ORDERED: Ondansetron PF 4 MG/2 ML Vial IVP PRN (15:58)
[2020-02-16] MEDS ORDERED: Promethazine HCl 25 MG/ML VIAL IM PRN (15:58)
[2020-02-16] MEDS ORDERED: Morphine 2 MG/ML SYRINGE SLOW IVP PRN (15:58)
[2020-02-16] MEDS ORDERED: diphenhydrAMINE 50 MG CAP PO PRN (16:10)
--- NOTE | 2020-02-16 17:14 | OP ---
DATE OF PROCEDURE: 02/16/2020 AURIST: Mila Mejias PA-C. PROCEDURE PERFORMED: Anterior cervical diskectomy, C5 through C7, interbody arthrodesis, intervertebral biomechanical device, local morselized autograft, demineralized bone matrix, anterior titanium instrumentation C5-C7; posterior cervical laminectomy, C5-C7; thoracic laminectomy T2-T3; C5-C7 posterolateral arthrodesis; lateral mass screw instrumentation C5-C7, demineralized bone matrix, local morselized autograft; resection of subcutaneous thoracic lipoma, approximately 4-1/2 cm. DESCRIPTION OF PROCEDURE: An incision was made exposing C4 through T3 to encompass the lipoma and our level was confirmed by x-ray. We first removed the subcutaneous mass, which did express significant abebe, waxy and foul smelling components. It was well circumscribed. In two particular locations, it became very close to the epidermis leaving very thin epidermis to the right paramedian region. The lesion was resected entirely and sent for pathology. We next exposed the cervical and thoracic spine. It should be noted that the patient was very bloody and extensive bleeding was frequent throughout the case. We performed complete C7, complete C6, and complete C5 cervical laminectomies and complete T3 and inferior T2 thoracic laminectomies. A complete decompression was achieved at both of these levels. The T2-3 lesion was quite complex with significant calcification and cord compression. This was ultimately decompressed with substantial difficulty. Next, lateral mass screws were placed at right C5, right C6, and right C7 using lateral fluoroscopic guidance. The rustam was secured between the screws, connected by nuts, which were final tightened. The C6 screw could not be adequately fastened. Next, the wounds were extensively irrigated. MAC hemostasis was secured. A combination of demineralized bone matrix and local morselized autograft was laid over the C5-C7 lateral recess for the purpose of arthrodesis. Vancomycin powder was applied and the wounds were closed in anatomic layers over two drains. Job ID: [id number]
[2020-02-16] MEDS: CEFAZOLIN 2 GM in Premix Bag 1 BAG IVPB SCH (19:20)
[2020-02-16] MEDS: Sodium Chloride 0.9% 1,000 ML IV SCH (19:21)
[2020-02-16] MEDS: tiZANidine HCl 4 MG TAB PO PRN (20:51)
[2020-02-16] MEDS: HYDROcodone/Acetaminophen 10/325 mg Tablet PO PRN (20:52)
[2020-02-17] MEDS: CEFAZOLIN 2 GM in Premix Bag 1 BAG IVPB SCH ×3 (02:41→19:23)
[2020-02-17] MEDS: HYDROcodone/Acetaminophen 10/325 mg Tablet PO PRN ×4 (02:45→21:26)
[2020-02-17] MEDS: tiZANidine HCl 4 MG TAB PO PRN ×2 (02:45→10:19)
[2020-02-17] MEDS: Tamsulosin HCl 0.4 MG CAP PO SCH (05:30)
--- NOTE | 2020-02-17 06:16 | PRG ---
DATE OF SERVICE: 02/17/2020 SUBJECTIVE: The patient is postoperative day #1, status post C5-C7 ACDF and C5- C7 posterior fusion, C5-T3 posterior decompression. He was transitioned to the Med/Surg floor following the surgery. He had 3 ELVIA drains placed intraoperatively, one anterior and two posterior. ELVIA drain A had 40 mL of output and ELVIA B 50 mL of output and ELVIA C which was posterior had 355 mL of output. The patient reports he is doing well. He has pain, but is well controlled with p.o. medication. He has been back and forth to the bathroom and walking short distances using his crutches and IV pole for assistance. He did have some difficulty with urination over postoperative night #1 and required I and O cath x1. However, reports that this seems to be improving with time. He is also receiving Flomax. OBJECTIVE: This morning, he is awake, alert, in no acute distress. He has free active range of all extremities in the bed. He appears to have good strength throughout. His incisions are clean, dry, and intact, and there is a small amount of dark red blood in all the ELVIA bulbs. PLAN: We will go ahead and remove the lowest ELVAI drains A and B, and we will leave ELVIA C with [address] in place. We will continue his IV antibiotics. We will have him work with Physical Therapy and Occupational Therapy and also get him a rolling walker to use as an assistive device. Depending on his progress, he may benefit from inpatient rehabilitation. We will go ahead and initiate a screen. We will follow along closely and anticipate discharge to either home or rehab in the next few days. Job ID: [id number] [facility]
[2020-02-17] MEDS: Sodium Chloride 0.9% 1,000 ML IV SCH ×2 (07:19→19:25)
[2020-02-17] MEDS: Multivit, Therapeutic 1 TAB PO SCH (08:33)
[2020-02-18] MEDS: CEFAZOLIN 2 GM in Premix Bag 1 BAG IVPB SCH ×3 (01:38→18:05)
[2020-02-18] MEDS: HYDROcodone/Acetaminophen 10/325 mg Tablet PO PRN ×4 (01:49→23:29)
[2020-02-18] MEDS: Tamsulosin HCl 0.4 MG CAP PO SCH (05:56)
[2020-02-18] MEDS: Sodium Chloride 0.9% 1,000 ML IV SCH ×2 (06:38→20:57)
--- NOTE | 2020-02-18 08:03 | PRG ---
DATE OF SERVICE: 02/18/2020 Mr. Berg is doing reasonably well, postop day 2, following his extensive anterior and posterior decompression and reconstruction. One of his ELVIA drains continues to have significant output and we will continue with this. Given that he lives independently and has significant mobility impairments as well as significant postoperative care needs and I expect he will do better in [facility] versus at home. Job ID: [id number]
[2020-02-18] MEDS: Bacitracin 1 PK TOP PRN (08:35)
[2020-02-18] MEDS: Multivit, Therapeutic 1 TAB PO SCH (08:35)
[2020-02-18] MEDS ORDERED: Albuterol Sulfate 2.5 mg/0.5 ml Neb NEB PRN (12:28)
[2020-02-18] MEDS ORDERED: Albuterol Sulfate 2.5 mg/3 ml Neb ONE (13:24)
[2020-02-18] MEDS: Albuterol Sulfate 2.5 mg/3 ml Neb NEB PRN (18:23)
[2020-02-18] MEDS: Milk Of Magnesia 30 ML UDCUP PO PRN (18:36)
[2020-02-18] MEDS: tiZANidine HCl 4 MG TAB PO PRN (19:55)
[2020-02-19] MEDS: tiZANidine HCl 4 MG TAB PO PRN ×2 (01:43→08:14)
[2020-02-19] MEDS: CEFAZOLIN 2 GM in Premix Bag 1 BAG IVPB SCH ×3 (01:48→17:17)
[2020-02-19] MEDS: HYDROcodone/Acetaminophen 10/325 mg Tablet PO PRN ×5 (03:33→20:39)
[2020-02-19] MEDS: Bacitracin 1 PK TOP PRN (05:35)
[2020-02-19] MEDS: Tamsulosin HCl 0.4 MG CAP PO SCH (05:35)
--- NOTE | 2020-02-19 06:26 | PRG ---
DATE OF SERVICE: 02/19/2020 The patient is now postoperative day #3, status post anterior and posterior cervical decompression and fusion. His pain is well controlled with p.o. medication, he is tolerating a regular diet, and he is voiding appropriately. His ELVIA outputs are trending down nicely and there is minimal output over the 3rd and final ELVIA in place, only 30 mL. He did develop some intermittent wheezing yesterday and this was treated with breathing treatments. He continues to wheeze this morning on my exam. He is in no respiratory distress and is otherwise saturating 96% on room air. He is slightly tachycardic at 105 this morning. He is neurologically intact on his exam. The patient is doing very well from a neurologic perspective. He has developed some intermittent wheezing, which does respond to breathing treatments. He is a long-term smoker and this may be contributory to some underlying lung disease. We will go ahead and check a chest x-ray and ask the medicine service to evaluate for his shortness of breath and wheezing. Job ID: [id number] [facility]
[2020-02-19] MEDS: Albuterol Sulfate 2.5 mg/3 ml Neb NEB PRN ×2 (07:17→22:23)
[2020-02-19] MEDS: Multivit, Therapeutic 1 TAB PO SCH (08:14)
[2020-02-19] MEDS: Milk Of Magnesia 30 ML UDCUP PO PRN ×2 (08:15→20:41)
--- NOTE | 2020-02-19 09:30 | RAD ---
EXAM: CHEST ONE VIEW HISTORY: Wheezing COMPARISON: 11/18/2019 FINDINGS: There been interval postsurgical changes of the lower cervical spine with midline skin clips extendin g from the lower cervical spine to the upper thoracic spine with evidence of anterior cervical fusion with plate and screws seen. There is also evidence of posterior fusion of the lower cervical s pine laterally on the right. Subcutaneous emphysema is seen along the right lateral neck in a supraclavicular location which may be related to recent postoperative changes. Radiopaque catheter ov erlies the left chest. A masslike opacity is seen at the lateral aspect of the right lung apex which was not seen on the pr ior exam. There is also nodularity involving the right hilum which is more prominent than on prior exam. Left lung is clear. Cardiac silhouette and pulmonary vasculature are within normal limits. Christopher te displaced left-sided rib fractures are again seen. No other interval change. IMPRESSION: 1. Masslike appearing opacity at the right lung apex which was not seen on prior exam. This could pot entially represent pneumonia. Aspiration pneumonitis is a differential consideration; although, this is usually at the lung base. Pleural-based mass could not be entirely excluded, but given short interval change since prior study, this is thought less likely. 2. Nodular appearance of right hilum which is more prominent than on prior exam. This could represent lymphadenopathy. 3. Postoperative changes cervical spine with subcutaneous emphysema base of right neck in a supraclav icular location probably attributable to postoperative change. 4. Vascular calcifications left carotid arteries. 5. If the patient has signs and symptoms of pneumonia, follow-up evaluation can be performed to ensur e resolution of the opacity and nodular appearance of the right hilum. However, if the patient does not have signs or symptoms of pneumonia, CT thorax may be helpful for further evaluation..
[2020-02-19] MEDS: Sodium Chloride 0.9% 1,000 ML IV SCH (09:57)
--- NOTE | 2020-02-19 11:07 | PDOC.FPRHP ---
- History of Present Illness Chief Complaint: consulted for medical management, concern for RUL pna History of Present Illness: 64 yo M presents as a consult from neurosurgery for RUL mass seen on CXR. Patient had a recent C5-C7 ACDF and C5-C7 posterior fusion, and C5-T3 posterior decompression with Dr. Beltran, then was admitted to surgical floor following the surgery. He has 3 ELVIA drains, one anterior and two posterior. Per notes, he has also had difficulty with urination postoperatively which has been improving with time and Flomax. Patient has a possible history of COPD, currently smokes 3 cigars/day since age 45 (19 years). She states he has an occasional productive cough with yellow/ white mucous. Reports some wheezing, which nebulizer has helped with. While asking questions to verify the patient's history, patient became angry, refused to answer further questions. He stated "You can look in my chart for my history, they've asked me a million times" and "You can leave now." - Allergies/Adverse Reactions Allergies Allergy/AdvReac Type Severity Reaction Status Date / Time No Known Drug Allergies Allergy Verified 02/11/20 12:04 - Home Medications Medication Instructions Recorded Confirmed Type Acetaminophen [Tylenol Extra 500 mg PO Q6HR PRN 03/22/18 02/16/20 History Strength] Multivit, Therapeutic [Theragran] 1 tab PO DAILY tab 03/29/18 02/11/20 Rx Naproxen 1 tab PO BID 02/11/20 02/11/20 History diphenhydrAMINE [Benadryl] 50 mg PO HS PRN 02/11/20 02/11/20 History - History PMHx: Nicotine abuse, spinal stenosis, dorsalgia, elevated BP without diagnosis of HTN, obesity, possible COPD PSHx: L elbow sx for infection; Back Sx this stay as discussed in HPI FHx: unobtainable due to patient refusal Social: 3 cigars/day for 19 years, current every day smoker; 4-5 beers/day; unable to elicit if he has illicit drug history due to patient refusal - Review of Systems ROS unobtainable: other (Patient denied headache or fever. All other ROS unobtainable due to patient's refusal.) - Vital signs BP: 128/72 HR: 96 RR: Tmax: 98.1 Pox: 96% on RA Wt: 95 kg - Physical Exam Constitutional: NAD, awake, alert and oriented, other (Further physical exam unobtainable due to patient's refusal) -Constitutional: sitting up in bed in no acute distress HEENT: normocephalic and atraumatic -Neck: bandage over anterior neck Chest: no-tender to palpation, no lesions Heart: RRR, normal S1/S2, no murmurs/rubs/gallops Lungs: no respiratory distress, good air movement, other (diffuse end expiratory wheezing.) Abdomen: soft, non-tender, bowel sounds present Musculoskeletal: normal tone, ROM grossly normal Neurological: no focal deficit, normal sensation Skin: no rash/lesions, good turgor -Skin: ELVIA drain from neck. Heme/Lymphatic: no unusual bruising or bleeding, no purpura Psychiatric: normal mood and affect, good judgment and insight, intact recent and remote memory FMR H&P: Results - Labs Result Diagrams: 02/19/20 12:39 02/19/20 12:39 FMR H&P: A/P - Problem List (1) Alcohol abuse Current Visit: No Status: Acute Code(s): F10.10 - ALCOHOL ABUSE, UNCOMPLICATED Comment: ASE protocol.Monitor for S/S of withdrawl.PRN Valium.Cont MV,Thiamine and Folic Acid (2) Tobacco abuse Current Visit: Yes Status: Chronic Code(s): Z72.0 - TOBACCO USE (3) Consolidation lung Current Visit: Yes Status: Acute Code(s): J18.1 - LOBAR PNEUMONIA, UNSPECIFIED ORGANISM (4) Urinary retention Current Visit: Yes Status: Acute Code(s): R33.9 - RETENTION OF URINE, UNSPECIFIED (5) Hyponatremia Current Visit: No Status: Chronic Code(s): E87.1 - HYPO-OSMOLALITY AND HYPONATREMIA Comment: Improving, continue IV fluids as below, continue to monitor lytes (6) Macrocytic anemia Current Visit: No Status: Chronic Code(s): D53.9 - NUTRITIONAL ANEMIA, UNSPECIFIED Comment: Likley due to alcohal abuse induced FA /B12 deficeincy.On supplementation (7) Hypokalemia Current Visit: No Status: Chronic Code(s): E87.6 - HYPOKALEMIA - Plan RUL masslike density with Right hilum nodularity - Consider pneumonia vs aspiration pneumonitis, although pleural based mass cannot be excluded; also consider atelectasis - Nodularity may be lymphadenopathy - Not seen 06/2018 CXR - Unable to examine lungs due to patient refusal, diffuse wheezing per Dr. Alvarez - Tachycardic to 120s, afebrile, normal RR - WBC wnl, procal negative - Patient will need repeat CXR to document resolution, if not resolved likely will need outpatient CT #COPD -Patient is not on chronic therapy, unknown if he has had formal spirometry testing. Recommend this outpatient. -continue duonebs PRN for wheezing -Encourage incentive spirometry #Macrocytic Anemia -Hgb 9.0, MCV 103; acute, possibly 2/2 blood loss anemia. Hgb 14 one week ago -Pt may also have deficiency of B12/folate due to chronic alcohol use -Folate and B12 pending -start daily multivitamin #Acute thrombocytopenia -Plt 124 #Tobacco abuse #Alcohol abuse - Ase protocol - daily multivitamin #ACDF C5-7, C5-7 posterior fusion, C5-T3 posterior decompression -Per neurosurgery recs -Ancef -PT/OT/rehab consulted -tylenol, morphine, hydrocodone, and tramadol for pain #Urinary retention -flomax #Chronic hyponatremia -Na 131, aware #Hypokalemia -Replace with 40 meq PO k Fluids: NS @ 75 ml/hr Diet: Regular DVT ppx: SCDs Gi ppx: none PCP: ROQUE Carcamo Dispo: per neurosurgery recs Toni Alves PGY2 Addendum - Attending - Attending Attestation Date/Time: 02/19/20 [id number] I personally evaluated the patient and discussed the management with Dr. Alves. I agree with the History, Examination, Assessment and Plan documented above with any addition or exceptions noted below. I suspect his infiltrate is related to atelectasis and his underlying COPD. He had diffuse end expiratory wheezing on exam. Continue duonebs and discussed use of incentive spirometry with patient. Given normal vitals I have low suspicion for infectious etiology. Abx recommendation pending procal.
[2020-02-19 12:49] LABS: #Lymphocytes 1.8 thou/uL (1.20-3.40); #Monocytes 0.8 thou/uL (0.11-0.59); #Neutrophils 5.1 thou/uL (1.40-6.50); %Basophils 0.6 % (0.0-1.0); %Eosinophils 0.3 % (0.0-10.0); %Monocytes 10.3 % (0.0-10.0); %Neutrophils 65.7 % (42.0-75.0); Mean Corpuscular HGB CONC 34.9 g/dL (32.0-36.0); Mean Platelet Volume 7.5 fL (7.4-10.4); Platelet Count 124 thou/uL (130-400); RBC Distribution Width 11.5 % (11.5-14.5); Red Blood Cell (RBC) Count 2.48 mill/uL (4.70-6.10); White Blood Cell (WBC) Count 7.8 thou/uL (4.8-10.8)
[2020-02-19 13:06] LABS: Anion Gap 11 mmol/L (10-20); BUN (Urea Nitrogen) 5 mg/dL (8.4-25.7); Calc. Creatinine Clearance 138 mL/min (70-130); Carbon Dioxide 27 mmol/L (23-31); Chloride 96 mmol/L (98-107); Estimated GFR-MDRD Greater than 90; Glucose 121 mg/dL (80-115); Potassium 3.2 mmol/L (3.5-5.1); Sodium 131 mmol/L (136-145)
[2020-02-19] MEDS ORDERED: Potassium Chloride 20 MEQ TAB PO SCH (15:00)
[2020-02-20] MEDS: Sodium Chloride 0.9% 1,000 ML IV SCH ×2 (01:02→11:15)
[2020-02-20] MEDS: CEFAZOLIN 2 GM in Premix Bag 1 BAG IVPB SCH ×2 (01:25→08:49)
[2020-02-20] MEDS: Acetaminophen 500 MG TAB PO PRN ×2 (03:34→08:50)
[2020-02-20] MEDS: Tamsulosin HCl 0.4 MG CAP PO SCH (05:27)
[2020-02-20] MEDS: Fleet Enema 133 ML BOT PR SCH ×2 (05:52→07:25)
[2020-02-20] MEDS: Bacitracin 1 PK TOP PRN (08:50)
[2020-02-20] MEDS ORDERED: Multivitamin W/ Minerals 1 TAB PO SCH (09:00)
--- NOTE | 2020-02-20 09:45 | PDOC.FM ---
- Subjective Subjective: Patient did well overnight. Has been receiving nebulizers every few hours. Ambulated this AM and O2 sats were 94% on RA. - Objective Vital Signs & Weight: Vital Signs (12 hours) Temp Pulse Resp BP Pulse Ox 02/20/20 07:38 97.9 F 99 20 162/82 H 99 02/19/20 22:23 90 20 Weight Weight 95.254 kg I&O: 02/19/20 02/20/20 02/21/20 06:59 06:59 06:59 Intake Total 3800 2150 Output Total 1065 90 Balance 2735 2060 Result Diagrams: 02/19/20 12:39 02/19/20 12:39 Phys Exam - Physical Examination Constitutional: NAD Respiratory: no rhonchi diffuse expiratory wheezing Cardiovascular: RRR, no significant murmur Gastrointestinal: soft, non-tender Musculoskeletal: no edema Neurological: non-focal, moves all 4 limbs Psychiatric: normal affect, A&O x 3 Dx/Plan (1) Alcohol abuse Code(s): F10.10 - ALCOHOL ABUSE, UNCOMPLICATED Status: Acute (2) Tobacco abuse Code(s): Z72.0 - TOBACCO USE Status: Chronic (3) Consolidation lung Code(s): J18.1 - LOBAR PNEUMONIA, UNSPECIFIED ORGANISM Status: Acute (4) Urinary retention Code(s): R33.9 - RETENTION OF URINE, UNSPECIFIED Status: Acute (5) Hyponatremia Code(s): E87.1 - HYPO-OSMOLALITY AND HYPONATREMIA Status: Chronic (6) Macrocytic anemia Code(s): D53.9 - NUTRITIONAL ANEMIA, UNSPECIFIED Status: Chronic (7) Hypokalemia Code(s): E87.6 - HYPOKALEMIA Status: Chronic (8) COPD (chronic obstructive pulmonary disease) Status: Chronic - Plan Plan: RUL masslike density with Right hilum nodularity - Low suspicion for pneumonia as WBC wnl and procal negative. Low suspicion for PE as O2 sats have been stable, and tachycardia responded to fluids. - Diffuse wheezing this AM, likely 2/2 COPD. Will send home with nebulizer machine with duonebs today. - Patient will need repeat CXR to document resolution, if not resolved likely will need outpatient CT #COPD -Will DC with nebulizer machine with duonebs today. Patient will need follow up with PCP in 1 week for COPD. -Patient is not on chronic therapy, unknown if he has had formal spirometry testing. Recommend this outpatient. -Encourage incentive spirometry #Macrocytic Anemia -Hgb 9.0, MCV 103; acute, possibly 2/2 blood loss anemia. Hgb 14 one week ago -Folate and B12 normal -continue daily multivitamin #Hypokalemia -Replaced yesterday with 40 meq PO k Diet: Regular PCP: ROQUE Carcamo Dispo: Per neurosurgery pt stable for discharge today. Will Rx nebulizer machine and patient will need follow up with PCP in 1 week for COPD. Toni Alves PGY2 Addendum - Attending - Attending Attestation Date/Time: 02/20/20 7421 I personally evaluated the patient and discussed the management with Dr. Alves. I agree with the History, Examination, Assessment and Plan documented above with any addition or exceptions noted below. Predisone 40 mg x5 days for mild COPD flair. Duoneb PRN. stable for d/c home.
[2020-02-20] MEDS ORDERED: Acetaminophen 500 MG TAB PO PRN (09:51)
[2020-02-20 11:25] VITALS: BP 157/77; TEMP 98.1
--- NOTE | 2020-02-20 17:33 | DIS ---
DATE OF ADMISSION: 02/16/2020 DATE OF DISCHARGE: 02/20/2020 The patient is a 64-year-old male, who was recently evaluated in our office for cervical stenosis with progressive cervical myelopathy. He was found to have significant anterior and posterior compression and underwent C5 to C7 anterior and posterior decompression and fusion as well as posterior C5 to T3 decompression. Following the surgery, he was transitioned to the Med/Surg floor. His pain has been well controlled with p.o. medications and he has been tolerating a regular diet. He initially had some urinary retention, but this improved with Flomax postoperatively. The patient did develop some intermittent wheezing during his admission course. He was treated with nebulizer treatments and the Family Medicine Service was consulted for additional evaluation. His chest x-ray was notable for right apex opacity, which they felt likely represented atelectasis. He improved with nebulizer treatments and his oxygen saturation remained good on room air. They felt that he was also appropriate for discharge and that the opacity was less likely to represent infectious etiology as he also had a normal WBC, procalcitonin and remained afebrile during his course. On exam, on postoperative day #5, the patient was awake, alert, in no acute distress. He had free active range of motion of all extremities. His incision anteriorly was clean, dry, and intact. His incision posterior was also clean, dry, and intact. The ELVIA drain was removed on postoperative day #4. It only had a small amount of serosanguinous blood in it. It only had ELVIA, it had 25 mL out overnight over the 4th evening. We will plan to dismiss the patient to home. I have discussed home care and precautions. I will follow up with him in 2 weeks and check x-rays at that time. He will also follow up with the Family Medicine Service next week. In regard to his pulmonary issues, they will arrange appropriate nebulizer treatments and nebulizer machine needed for outpatient. The patient is amenable to this plan. [employer] was checked prior to discharge and he was sent home with scripts for tramadol, Zanaflex, and Keflex. Family Medicine managing any pulmonary scripts. Job ID: [id number]
== END 2020-02-20 14:35 | disposition home or self-care (01) | DRG 454 ==
LOC: SURG A 02-16 07:12
PROVIDERS: ADMIT Neurological Surgery; ATTEND Neurological Surgery
PROC: 0RG20A0 Fusion of 2 or more Cervical Vertebral Joints with Interbody Fusion Device, Anterior Approach, Anterior Column, Open Approach (ICD-10-PCS; principal; 2020-02-16)
PROC: 0RG2071 Fusion of 2 or more Cervical Vertebral Joints with Autologous Tissue Substitute, Posterior Approach, Posterior Column, Open Approach (ICD-10-PCS; 2020-02-16)
PROC: 0RT30ZZ Resection of Cervical Vertebral Disc, Open Approach (ICD-10-PCS; 2020-02-16)
PROC: 01N80ZZ Release Thoracic Nerve, Open Approach (ICD-10-PCS; 2020-02-16)
PROC: 0JB60ZZ Excision of Chest Subcutaneous Tissue and Fascia, Open Approach (ICD-10-PCS; 2020-02-16)
DX: M48.02 Spinal stenosis, cervical region (principal); M47.12 Other spondylosis with myelopathy, cervical region; E87.1 Hypo-osmolality and hyponatremia; D62 Acute posthemorrhagic anemia; J98.11 Atelectasis; J44.1 Chronic obstructive pulmonary disease with (acute) exacerbation; F17.210 Nicotine dependence, cigarettes, uncomplicated; F10.10 Alcohol abuse, uncomplicated; D53.9 Nutritional anemia, unspecified; D69.6 Thrombocytopenia, unspecified; E87.6 Hypokalemia; R00.0 Tachycardia, unspecified; R33.9 Retention of urine, unspecified
CPT/HCPCS: 36415; 71045; 76000; 80048; 82607; 82746; 84145; 85025; 88304; 94640; C1713; C1768; C1776; J0690; J1100; J1170; J2001; J2405; J2704; J3010; J3370; J7611; J7620

== ENCOUNTER → 2020-02-11 | Outpatient (CLI) | payer OTHER ==
[2020-02-11 13:33] LABS: Mean Corpuscular HGB CONC 33.8 g/dL (32.0-36.0); Mean Platelet Volume 7.7 fL (7.4-10.4); Platelet Count 157 thou/uL (130-400); RBC Distribution Width 11.7 % (11.5-14.5); Red Blood Cell (RBC) Count 4.01 mill/uL (4.70-6.10)
[2020-02-11 13:52] LABS: Anion Gap 15 mmol/L (10-20); BUN (Urea Nitrogen) Less than 4 mg/dL (8.4-25.7); Calc. Creatinine Clearance 0 mL/min (70-130); Calcium 8.8 mg/dL (7.8-10.44); Carbon Dioxide 23 mmol/L (23-31); Chloride 99 mmol/L (98-107); Estimated GFR-MDRD Greater than 90; Glucose 88 mg/dL (80-115); Potassium 3.7 mmol/L (3.5-5.1); Sodium 133 mmol/L (136-145)
[2020-02-11 17:52] LABS: SARS-CoV-2 MS2 Positive; SARS-CoV-2 N Gene Negative; SARS-CoV-2 S Gene Negative; SARS-CoV-2 orf1ab Negative
== END ==
LOC: LABBT 16:37
PROVIDERS: ATTEND Neurological Surgery
DX: Z01.818 Encounter for other preprocedural examination (principal); Z11.59 Encounter for screening for other viral diseases; M47.12 Other spondylosis with myelopathy, cervical region
CPT/HCPCS: 80048; 85027; 87635; 93005; 93010; U0003

== ENCOUNTER 2020-03-03 15:08 | Outpatient (CLI) | payer OTHER ==
--- NOTE | 2020-03-03 15:31 | RAD ---
EXAM: 3 views of the cervical spine HISTORY: Status post cervical fusion COMPARISON: None FINDINGS: AP, lateral, and open mouth odontoid views of the cervical spine shows the patient to be st atus post anterior and posterior fusion of C5-C7. Disc spacers are seen in the intervening disc spaces. There is normal height and alignment of the vertebral bodies without fracture or subluxation. No perihardware lucency is seen. No prevertebral soft tissue swelling is seen. IMPRESSION: Postsurgical changes of the cervical spine without evidence of complication.
== END 2020-03-03 15:09 | disposition home or self-care (01) ==
LOC: TBSIIMAG 15:08
PROVIDERS: ATTEND Neurological Surgery
DX: M47.12 Other spondylosis with myelopathy, cervical region (principal); Z98.1 Arthrodesis status
CPT/HCPCS: 72040

== ENCOUNTER 2020-04-14 13:31 | Emergency (ER) | payer OTHER | END 2020-04-14 14:46 | disposition home or self-care (01) | LOC: ERS 13:31 | DX: T81.33XA Disruption of traumatic injury wound repair, initial encounter (principal); F17.290 Nicotine dependence, other tobacco product, uncomplicated; Z79.899 Other long term (current) drug therapy | CPT/HCPCS: 99282 ==

== ENCOUNTER 2020-04-18 14:21 | Emergency (ER) | payer OTHER | END 2020-04-18 18:00 | disposition home or self-care (01) | LOC: ERS 14:21 | DX: T81.89XA Other complications of procedures, not elsewhere classified, initial encounter (principal); F17.210 Nicotine dependence, cigarettes, uncomplicated | CPT/HCPCS: 99283 ==

== ENCOUNTER 2020-04-20 12:33 | Outpatient (CLI) | payer OTHER ==
--- NOTE | 2020-04-20 13:05 | RAD ---
CERVICAL SPINE: 4 views INDICATIONS:Cervical pain cervical spondylosis COMPARISON:03/03/2020 FINDINGS: Postoperative changes are again noted with anterior plate and screws, interbody implants, posterior s crews and rods on the right at C5, C6, and C7. Degenerative change of posterior spondylosis. Anterolisthesis at C3-3-4 in the neutral position measured at 3 mm. No soft tissue abnormality identified. IMPRESSION: Postoperative and degenerative changes of cervical spine appears stable from recent exam.
== END 2020-04-20 12:34 | disposition home or self-care (01) ==
LOC: TBSIIMAG 12:33
PROVIDERS: ATTEND Neurological Surgery
DX: M47.12 Other spondylosis with myelopathy, cervical region (principal); Z98.890 Other specified postprocedural states
CPT/HCPCS: 72040

== ENCOUNTER 2020-05-27 13:33 | Outpatient (CLI) | payer OTHER ==
--- NOTE | 2020-05-27 14:07 | RAD ---
Cervical spine 4 views: 05/27/2020 COMPARISON: 04/20/2020 HISTORY: Prior cervical spine fusion, stenosis of cervical spine with myelopathy FINDINGS: Right-sided posterior fusion hardware present at C5, C6, and C7. Anterior discectomy and fu carlo hardware is present at C5-6/C6-7. Stable mild anterolisthesis noted at C2-3 and C3-4. Stable disc space narrowing with degenerative end plate change noted at C3-4 and C4-5. No prevertebral soft tissue swelling. Open-mouth odontoid view appears grossly unremarkable. Prominent mid cervical spine bilateral facet and uncovertebral osteophyte formation noted, left great er than right, most prominent at the C2-3, C3-4, and C4-5 levels. IMPRESSION: Stable postoperative and degenerative change of the cervical spine as detailed above.
== END 2020-05-27 13:34 | disposition home or self-care (01) ==
LOC: TBSIIMAG 13:33
PROVIDERS: ATTEND Neurological Surgery
DX: M47.12 Other spondylosis with myelopathy, cervical region (principal); M48.02 Spinal stenosis, cervical region; Z98.1 Arthrodesis status
CPT/HCPCS: 72040

== ENCOUNTER 2020-09-29 13:44 | Outpatient (CLI) | payer MEDICAID ==
--- NOTE | 2020-09-29 14:47 | RAD ---
CERVICAL SPINE SERIES: HISTORY: Followup from neck surgery. COMPARISON: 05/27/2020 exam. FINDINGS: The vertebral bodies are normal in height. Anterior cervical fusion from C5 to C7 is noted. Marked disk narrowing at C4-5. Posterior facet screws at these levels on the right are also again noted. IMPRESSION: Stable postop change. POS: AH
== END 2020-09-29 13:45 | disposition home or self-care (01) ==
LOC: TBSIIMAG 13:44
PROVIDERS: ATTEND Neurological Surgery
DX: M47.12 Other spondylosis with myelopathy, cervical region (principal); Z98.1 Arthrodesis status
CPT/HCPCS: 72040

== ENCOUNTER 2020-12-20 10:46 | Emergency (ER) | payer MEDICARE, MEDICAID ==
[2020-12-20] MEDS ORDERED: Iopamidol-370 76% 500 ML 1 ML ONE (10:59)
[2020-12-20 12:08] LABS: #Basophils 0.1 thou/uL (0.0-0.2); #Monocytes 0.8 thou/uL (0.11-0.59); #Neutrophils 6.2 thou/uL (1.40-6.50); %Basophils 0.8 % (0.0-1.0); %Eosinophils 0.4 % (0.0-10.0); %Lymphocytes 21.6 % (21.0-51.0); %Monocytes 8.8 % (0.0-10.0); %Neutrophils 68.3 % (42.0-75.0); Mean Corpuscular HGB CONC 32.7 g/dL (32.0-36.0); Mean Corpuscular Hemoglobin 32.7 pg (27.0-31.0); Mean Corpuscular Volume 99.7 fL (78.0-98.0); Platelet Count 196 thou/uL (130-400); RBC Distribution Width 11.8 % (11.5-14.5); Red Blood Cell (RBC) Count 4.29 mill/uL (4.70-6.10); White Blood Cell (WBC) Count 9.1 thou/uL (4.8-10.8)
[2020-12-20 12:38] LABS: ALT (SGPT) 11 U/L (8-55); AST (SGOT) 24 U/L (5-34); Albumin 3.1 g/dL (3.4-4.8); Alkaline Phosphatase 97 U/L (40-110); Anion Gap 15 mmol/L (10-20); BUN (Urea Nitrogen) 6 mg/dL (8.4-25.7); Bilirubin, Total 0.4 mg/dL (0.2-1.2); Calc. Creatinine Clearance 0 mL/min (70-130); Calcium 8.9 mg/dL (7.8-10.44); Carbon Dioxide 25 mmol/L (23-31); Chloride 100 mmol/L (98-107); Globulin 3.4 g/dL (2.4-3.5); Glucose 102 mg/dL (80-115); Potassium 4.5 mmol/L (3.5-5.1); Protein, Total 6.5 g/dL (5.8-8.1); Sodium 135 mmol/L (136-145)
== END 2020-12-20 15:15 | disposition home or self-care (01) ==
LOC: ERS 10:46
DX: D49.0 Neoplasm of unspecified behavior of digestive system (principal); F17.210 Nicotine dependence, cigarettes, uncomplicated
CPT/HCPCS: 36415; 70491; 80053; 83605; 85025; 87081; 87430; Q9967

== ENCOUNTER 2021-01-21 07:42 | Outpatient (CLI) | payer MEDICARE, MEDICAID | END 2021-01-21 07:43 | disposition home or self-care (01) | LOC: PET 07:42 | PROVIDERS: ATTEND Internal Medicine Hematology & Oncology | DX: C09.8 Malignant neoplasm of overlapping sites of tonsil (principal); C77.9 Secondary and unspecified malignant neoplasm of lymph node, unspecified | CPT/HCPCS: 78815; A9552 ==

== ENCOUNTER 2021-01-28 12:59 | Outpatient (CLI) | payer MEDICARE, MEDICAID ==
[2021-01-28 20:56] LABS: SARS-CoV-2 PCR by NAA Not Detected (NotDetected)
== END 2021-01-28 13:00 | disposition home or self-care (01) ==
LOC: LABBT 12:59
PROVIDERS: ATTEND Internal Medicine
DX: Z01.812 Encounter for preprocedural laboratory examination (principal); C11.1 Malignant neoplasm of posterior wall of nasopharynx; R13.12 Dysphagia, oropharyngeal phase; Z20.822 Contact with and (suspected) exposure to COVID-19
CPT/HCPCS: U0003; U0005; 87635

== ENCOUNTER 2021-01-28 13:15 | Inpatient (IN) | payer MEDICARE, MEDICAID ==
[2021-02-01 12:19] VITALS: BMI 26.6
[2021-02-02] MEDS ORDERED: PROPOFOL 200 MG/20 ML VIAL ONE (10:26)
[2021-02-02] MEDS ORDERED: Lidocaine 1% PF 5 ML VIAL ONE (10:26)
[2021-02-02] MEDS ORDERED: Ondansetron HCl/PF 4 MG/2 ML Vial IVP PRN ×2 (10:50→11:15)
[2021-02-02] MEDS ORDERED: Promethazine HCl 25 MG/ML VIAL SLOW IVP PRN (10:50)
[2021-02-02] MEDS ORDERED: Fentanyl 100 MCG/2 ML VIAL ONE ×2 (10:50→13:25)
[2021-02-02] MEDS ORDERED: Promethazine HCl 25 MG/ML VIAL IM PRN (10:50)
[2021-02-02] MEDS ORDERED: Non-Formulary Medication 1 EACH PO PRN (11:09)
[2021-02-02] MEDS ORDERED: Promethazine HCl 25 MG/ML VIAL IM/IV PRN (11:15)
[2021-02-02] MEDS ORDERED: Pancrelipase DR 12,000 1 CAP FS PRN (16:45)
[2021-02-02] MEDS ORDERED: Sodium Bicarbonate Tab 325 MG TAB PER TUBE PRN (16:45)
[2021-02-02] MEDS ORDERED: diphenhydrAMINE 25 MG CAP PO PRN (19:03)
[2021-02-02] MEDS: Acetaminophen/Codeine 30-300mg Tablet PO PRN (19:32)
[2021-02-03] MEDS: Acetaminophen/Codeine 30-300mg Tablet PO PRN (04:04)
[2021-02-03 07:12] VITALS: BP 159/82; TEMP 98
[2021-02-03] MEDS ORDERED: Multivit, Therapeutic 1 TAB PO SCH (09:00)
== END 2021-02-03 11:30 | disposition home or self-care (01) | DRG 148 ==
LOC: INTOOBSV 02-02 07:47 → SURG A 02-02 07:47 → OBSVTOIN 02-02 10:43 → EDSTATUS 02-02 13:15 → T4-B 02-02 14:30
PROVIDERS: ADMIT Internal Medicine; ATTEND Internal Medicine
PROC: 0DH63UZ Insertion of Feeding Device into Stomach, Percutaneous Approach (ICD-10-PCS; principal; 2021-02-02)
DX: C11.1 Malignant neoplasm of posterior wall of nasopharynx (principal); R13.12 Dysphagia, oropharyngeal phase; Z20.822 Contact with and (suspected) exposure to COVID-19; M19.90 Unspecified osteoarthritis, unspecified site; G47.00 Insomnia, unspecified; M48.00 Spinal stenosis, site unspecified; J44.9 Chronic obstructive pulmonary disease, unspecified; Z79.899 Other long term (current) drug therapy; Z87.891 Personal history of nicotine dependence; Z79.1 Long term (current) use of non-steroidal anti-inflammatories (NSAID)
CPT/HCPCS: J0690; J2704; J3010

== ENCOUNTER 2021-05-06 11:22 | Day surgery (SDC) | payer MEDICARE, MEDICAID, OTHER ==
[2021-05-06] MEDS ORDERED: Acetaminophen 500 MG TAB PO SCH (11:45)
[2021-05-06] MEDS ORDERED: diphenhydrAMINE 25 MG CAP PO SCH (11:45)
[2021-05-06 15:35] VITALS: BP 159/76; TEMP 98
== END 2021-05-06 15:35 | disposition home or self-care (01) ==
LOC: ONC/OP 11:22
PROVIDERS: ATTEND Internal Medicine Hematology & Oncology
PROC: 30233N1 Transfusion of Nonautologous Red Blood Cells into Peripheral Vein, Percutaneous Approach (ICD-10-PCS; principal; 2021-05-06)
DX: D64.9 Anemia, unspecified (principal); D69.6 Thrombocytopenia, unspecified
CPT/HCPCS: 36430; 86850; 86900; 86901; P9016

== ENCOUNTER 2021-05-31 12:21 | Day surgery (SDC) | payer MEDICARE, MEDICAID ==
[2021-05-31] MEDS ORDERED: Sodium Chloride 0.9% 20 ML ONE (12:59)
[2021-05-31] MEDS ORDERED: diphenhydrAMINE 25 MG CAP PO SCH (13:00)
[2021-05-31] MEDS ORDERED: Acetaminophen 500 MG TAB PO SCH (13:00)
[2021-05-31 16:20] VITALS: BP 185/85; TEMP 97.8
== END 2021-05-31 16:21 | disposition home or self-care (01) ==
LOC: ONC/OP 12:21
PROVIDERS: ATTEND Internal Medicine Hematology & Oncology
PROC: 30233N1 Transfusion of Nonautologous Red Blood Cells into Peripheral Vein, Percutaneous Approach (ICD-10-PCS; principal; 2021-05-31)
DX: D64.9 Anemia, unspecified (principal); D69.6 Thrombocytopenia, unspecified
CPT/HCPCS: 36430; 86850; 86900; 86901; P9016; Q0163

== ENCOUNTER 2021-07-21 08:17 | Outpatient (CLI) | payer MEDICARE, MEDICAID | END 2021-07-21 08:18 | disposition home or self-care (01) | LOC: PET 08:17 | PROVIDERS: ATTEND Internal Medicine Hematology & Oncology | DX: C09.9 Malignant neoplasm of tonsil, unspecified (principal); D49.0 Neoplasm of unspecified behavior of digestive system; R91.1 Solitary pulmonary nodule; R59.0 Localized enlarged lymph nodes; K14.8 Other diseases of tongue | CPT/HCPCS: 78815; A9552 ==

== ENCOUNTER 2021-08-06 18:08 | Emergency (ER) | payer MEDICARE, MEDICAID ==
[~2021-08-06 18:08] MED LIST: Iopamidol-370 76% 500 ML 1 ML ONE
[2021-08-06 18:31] LABS: #Lymphocytes 0.6 thou/uL (1.20-3.40); #Monocytes 0.7 thou/uL (0.11-0.59); #Neutrophils 5.8 thou/uL (1.40-6.50); %Basophils 0.1 % (0.0-1.0); %Eosinophils 0.4 % (0.0-10.0); %Lymphocytes 7.8 % (21.0-51.0); %Monocytes 9.3 % (0.0-10.0); %Neutrophils 82.4 % (42.0-75.0); Hemoglobin 9.6 g/dL (14.0-18.0); Mean Corpuscular HGB CONC 36.2 g/dL (32.0-36.0); Mean Corpuscular Hemoglobin 36.1 pg (27.0-31.0); Mean Corpuscular Volume 99.7 fL (78.0-98.0); Mean Platelet Volume 6.8 fL (7.4-10.4); Platelet Count 168 thou/uL (130-400); RBC Distribution Width 11.7 % (11.5-14.5); Red Blood Cell (RBC) Count 2.67 mill/uL (4.70-6.10); White Blood Cell (WBC) Count 7.1 thou/uL (4.8-10.8)
[2021-08-06] MEDS ORDERED: Ondansetron PF 4 MG/2 ML Vial ONE (18:31)
[2021-08-06] MEDS ORDERED: EPINEPHrine 1 MG/10 ML Abboject SYRINGE ONE (18:38)
[2021-08-06 18:41] LABS: Prothrombin Time 13.1 sec (12.0-14.7)
[2021-08-06 18:42] LABS: PTT 34.5 sec (22.9-36.1)
[2021-08-06] MEDS ORDERED: Propofol 1,000 MG/100 ML VIAL IV ONE (18:51)
[2021-08-06] MEDS ORDERED: Fentanyl 100 MCG/2 ML VIAL ONE (18:53)
[2021-08-06] MEDS ORDERED: Norepinephrine 8 MG/0.9% NS 250 ML ONE (18:56)
[2021-08-06] MEDS ORDERED: fentaNYL Citrate/PF 2,000 MCG in Sodium Chloride 0.9% 60 ML IV SCH (19:00)
[2021-08-06 19:13] LABS: ALT (SGPT) 12 U/L (8-55); AST (SGOT) 19 U/L (5-34); Albumin 3.9 g/dL (3.4-4.8); Alkaline Phosphatase 101 U/L (40-110); Anion Gap 16 mmol/L (10-20); BUN (Urea Nitrogen) 22 mg/dL (8.4-25.7); Bilirubin, Total 0.2 mg/dL (0.2-1.2); Calc. Creatinine Clearance 0 mL/min (70-130); Calcium 9.2 mg/dL (7.8-10.44); Carbon Dioxide 19 mmol/L (23-31); Chloride 95 mmol/L (98-107); Globulin 3.4 g/dL (2.4-3.5); Glucose 95 mg/dL (80-115); Lipase 26 U/L (8-78); Potassium 4.2 mmol/L (3.5-5.1); Protein, Total 7.3 g/dL (5.8-8.1); Sodium 126 mmol/L (136-145)
[2021-08-06] MEDS ORDERED: Rocuronium Bromide 10 MG/ML (10ML VIAL) IVP SCH (19:15)
[2021-08-06] MEDS ORDERED: Octreotide Acetate 1,250 MCG in Sodium Chloride 0.9% 250 ML 250 ML IVPB SCH (19:15)
[2021-08-06 19:21] LABS: Actual Bicarbonate (HCO3a) 19.5 mEq/L (22-28); Analyzer IN Cardio ER; Base Excess (BEa) -4.6 mEq/L (-2.0 to +3.0); CO2 Tension 32.5 mmHg (35.0-45.0); Calcium, Ionized (arterial) 1.05 mmol/L (1.12-1.30); Carboxyhemoglobin (COHb) 0.7 gm% (0.0-3.0); Hemoglobin (Hb) 11.1 g/dL (14.0-18.0); O2 Tension (PaO2), arterial 451.5 mmHg (> 80.0); Potassium - ABG Lab 4.29 mmol/L (3.70-5.30)
[2021-08-06 19:26] LABS: Puncture Site LRA
[2021-08-06 19:27] LABS: ALV-art Gradient 220.875 mmHg (0-20)
[2021-08-06] MEDS ORDERED: Pantoprazole 40 MG VIAL IVP SCH (19:30)
[2021-08-06] MEDS ORDERED: Morphine 4 MG/ML VIAL SLOW IVP SCH (19:30)
[2021-08-06] MEDS ORDERED: Succinylcholine 200 MG/10 ml SYRINGE FS SCH (19:30)
[2021-08-06 20:15] LABS: SARS-CoV-2 NAA Rapid Test Not Detected (NotDetected)
[2021-08-06] MEDS ORDERED: Lorazepam 2 MG/ML VIAL ONE (21:35)
[2021-08-06] MEDS ORDERED: cefTRIAXone\\ROCEPHIN 2 GM VIAL ONE (21:35)
[2021-08-06 22:25] LABS: Bilirubin Negative (Negative); Blood, Urine 3+ (Negative); Clarity Clear (Clear); Glucose, Urine (Dipstick) Normal (Negative); Ketone, Urine Negative (Negative); Leukocyte Negative Leu/uL (Negative); Nitrite Negative (Negative); Protein, Urine (Dipstick) 10 mg/dL (Neg-Trace); RBC/HPF Greater than 50 HPF (0-3); Specific Gravity, Urine 1.013 (1.002-1.036); Squamous Epithelial None Seen HPF (0-3); Urobilinogen Normal mg/dL (Less than 2); WBC/HPF 0-3 HPF (0-3); pH, Urine 6.5 (5.0-9.0)
[2021-08-06 22:26] LABS: Bacteria/HPF 1+ HPF (None Seen)
[2021-08-06 23:33] LABS: Hemoglobin 11.1 g/dL (14.0-18.0); Mean Corpuscular Hemoglobin 33.6 pg (27.0-31.0); Mean Corpuscular Volume 93.4 fL (78.0-98.0); Mean Platelet Volume 7.2 fL (7.4-10.4); Platelet Count 118 thou/uL (130-400); RBC Distribution Width 14.7 % (11.5-14.5); White Blood Cell (WBC) Count 8.2 thou/uL (4.8-10.8)
[2021-08-06 23:37] LABS: #Lymphocytes 0.4 thou/uL (1.20-3.40); #Monocytes 0.5 thou/uL (0.11-0.59); #Neutrophils 7.2 thou/uL (1.40-6.50); %Basophils 0.3 % (0.0-1.0); %Eosinophils 0.1 % (0.0-10.0); %Lymphocytes 5.4 % (21.0-51.0); %Neutrophils 88.2 % (42.0-75.0); Anisocytosis SLIGHT = 6-15 cells (100X) (0-5/hpf); MDiff Complete? YES; Platelet Morphology Comment Appears Adequate
[2021-08-07] MEDS ORDERED: Propofol 1,000 MG/100 ML VIAL IV ONE (01:24)
== END 2021-08-07 01:43 | disposition short-term general hospital (02) ==
LOC: ERS 18:08
DX: K52.9 Noninfective gastroenteritis and colitis, unspecified (principal); R04.2 Hemoptysis; I95.9 Hypotension, unspecified; R00.0 Tachycardia, unspecified; F17.210 Nicotine dependence, cigarettes, uncomplicated
CPT/HCPCS: 36430; 36600; 70491; 71045; 71275; 74177; 80053; 82805; 83690; 84484; 85025 ×2; 85610; 85730; 86850 ×2; 86900; 86901; 86920; 87040; 93005; 94002; J3010; P9016; P9059; U0002; 31500; 36556; 43753; 51701; 81003; 81015; 82274; 96365; 96366; 96368; 96374; 96375; 99292; C9113; J0171; J0696; J2060; J2354; J2405; J2704; J3490; J7050; Q9967

== ENCOUNTER 2021-08-31 10:55 | Outpatient (CLI) | payer MEDICARE, MEDICAID ==
[2021-08-31 23:29] LABS: SARS-CoV-2 PCR by NAA Not Detected (NotDetected)
== END 2021-08-31 10:56 | disposition home or self-care (01) ==
LOC: LABBT 10:55
PROVIDERS: ATTEND Family Medicine
DX: Z01.812 Encounter for preprocedural laboratory examination (principal); Z20.822 Contact with and (suspected) exposure to COVID-19
CPT/HCPCS: U0003; U0005

== ENCOUNTER 2021-09-01 10:33 | Outpatient (CLI) | payer MEDICARE, MEDICAID | END 2021-09-01 10:34 | disposition home or self-care (01) | PROVIDERS: ATTEND Radiology Radiation Oncology | DX: R13.12 Dysphagia, oropharyngeal phase (principal); C01 Malignant neoplasm of base of tongue | CPT/HCPCS: 74230 ==

== ENCOUNTER 2021-09-12 21:56 | Inpatient (IN) | payer MEDICARE, OTHER ==
[~2021-09-12 21:56] MED LIST changes: +EPINEPHrine 1 MG/10 ML Abboject SYRINGE ONE; -Iopamidol-370 76% 500 ML 1 ML ONE
[2021-09-12] MEDS ORDERED: Pantoprazole 40 MG VIAL ONE ×2 (22:02→22:03)
[2021-09-12] MEDS ORDERED: Ondansetron PF 4 MG/2 ML Vial ONE (22:02)
[2021-09-12] MEDS ORDERED: Sterile Water 20 ML ONE (22:03)
[2021-09-12] MEDS ORDERED: Octreotide Acetate 50 MCG/ML AMP ONE (22:15)
[2021-09-12] MEDS ORDERED: Rocuronium Bromide 10 MG/ML (10ML VIAL) ONE (22:19)
[2021-09-12] MEDS ORDERED: Propofol 1,000 MG/100 ML VIAL IV ONE (22:22)
[2021-09-12 22:29] LABS: #Lymphocytes 0.6 thou/uL (1.20-3.40); #Monocytes 0.5 thou/uL (0.11-0.59); #Neutrophils 5.5 thou/uL (1.40-6.50); %Eosinophils 0.4 % (0.0-10.0); %Lymphocytes 9.2 % (21.0-51.0); %Neutrophils 82.4 % (42.0-75.0); Hemoglobin 8.1 g/dL (14.0-18.0); Mean Corpuscular HGB CONC 34.8 g/dL (32.0-36.0); Mean Corpuscular Hemoglobin 33.3 pg (27.0-31.0); Mean Corpuscular Volume 95.4 fL (78.0-98.0); Platelet Count 130 thou/uL (130-400); RBC Distribution Width 12.8 % (11.5-14.5); Red Blood Cell (RBC) Count 2.43 mill/uL (4.70-6.10); White Blood Cell (WBC) Count 6.6 thou/uL (4.8-10.8)
[2021-09-12] MEDS ORDERED: Octreotide Acetate 1,250 MCG in Sodium Chloride 0.9% 250 ML 250 ML IVPB SCH (22:30)
[2021-09-12 22:37] LABS: INR-International Normal Ratio 1.1; Prothrombin Time 13.9 sec (12.0-14.7)
[2021-09-12 22:45] LABS: Acetaminophen Less than 6.0 mcg/mL (10.0-30.0); Alcohol Less than 10 mg/dL (Less than 10); Salicylate Less than 8.0 mg/dL (15.0-30.0)
[2021-09-12 22:46] LABS: ALT (SGPT) 15 U/L (8-55); AST (SGOT) 20 U/L (5-34); Albumin 3.5 g/dL (3.4-4.8); Alkaline Phosphatase 98 U/L (40-110); Anion Gap 11 mmol/L (10-20); BUN (Urea Nitrogen) 28 mg/dL (8.4-25.7); Bilirubin, Total 0.3 mg/dL (0.2-1.2); Calc. Creatinine Clearance 0 mL/min (70-130); Calcium 8.6 mg/dL (7.8-10.44); Carbon Dioxide 24 mmol/L (23-31); Chloride 97 mmol/L (98-107); Globulin 3.4 g/dL (2.4-3.5); Glucose 88 mg/dL (80-115); Lipase 82 U/L (8-78); Potassium 3.6 mmol/L (3.5-5.1); Protein, Total 6.9 g/dL (5.8-8.1); Sodium 128 mmol/L (136-145)
[2021-09-12] MEDS ORDERED: Fentanyl 100 MCG/2 ML VIAL ONE (22:56)
[2021-09-12] MEDS ORDERED: fentaNYL Citrate/PF 2,000 MCG in Sodium Chloride 0.9% 60 ML IV SCH (23:00)
[2021-09-12 23:04] LABS: Analyzer IN Cardio ER; Base Excess (BEa) -9.3 mEq/L (-2.0 to +3.0); CO2 Tension 45.5 mmHg (35.0-45.0); Calcium, Ionized (arterial) 1.13 mmol/L (1.12-1.30); Carboxyhemoglobin (COHb) 0.3 gm% (0.0-3.0); Hemoglobin (Hb) 8.7 g/dL (14.0-18.0); O2 Tension (PaO2), arterial 125.8 mmHg (> 80.0); Potassium - ABG Lab 3.38 mmol/L (3.70-5.30)
[2021-09-12 23:06] LABS: pH, Arterial 7.21 (7.35-7.45)
[2021-09-12 23:07] LABS: ALV-art Gradient 530.325 mmHg (0-20); Puncture Site LRA
[2021-09-12 23:30] LABS: Bacteria/HPF None Seen HPF (None Seen); Bilirubin Negative (Negative); Blood, Urine 3+ (Negative); Clarity Turbid (Clear); Glucose, Urine (Dipstick) Normal (Negative); Ketone, Urine Negative (Negative); Leukocyte Negative Leu/uL (Negative); Nitrite Negative (Negative); Protein, Urine (Dipstick) 20 mg/dL (Neg-Trace); RBC/HPF 21-50 HPF (0-3); Specific Gravity, Urine 1.009 (1.002-1.036); Squamous Epithelial None Seen HPF (0-3); Urobilinogen Normal mg/dL (Less than 2); pH, Urine 6.5 (5.0-9.0)
[2021-09-13 00:14] LABS: SARS-CoV-2 NAA Rapid Test Not Detected (NotDetected)
[2021-09-13 00:22] LABS: Amphetamine Not Detected (NotDetected); Barbiturates Screen Not Detected (NotDetected); Benzodiazepine Screen Not Detected (NotDetected); Cocaine Metabolite Screen Not Detected (NotDetected); Methadone Not Detected (NotDetected); Methamphetamine Not Detected (NotDetected); Opiate Screen Detected (NotDetected); Oxycodone Screen Not Detected (NotDetected); Phencyclidine (PCP) Not Detected (NotDetected); THC/Cannabinoid Screen Not Detected (NotDetected); Tricyclic Screen Not Detected (NotDetected)
[2021-09-13 00:56] LABS: Hemoglobin 8.5 g/dL (14.0-18.0)
[2021-09-13] MEDS ORDERED: cefTRIAXone\\ROCEPHIN 2 GM VIAL ONE (01:20)
[2021-09-13] MEDS ORDERED: Azithromycin 500 MG VIAL ONE (03:57)
[2021-09-13] MEDS ORDERED: Acetaminophen 325 MG TAB PER TUBE PRN (04:06)
[2021-09-13] MEDS ORDERED: Morphine 4 MG/ML VIAL SLOW IVP PRN (04:12)
[2021-09-13] MEDS ORDERED: Fentanyl BOLUS 250 ML IVPB PRN (04:15)
[2021-09-13] MEDS ORDERED: Propofol BOLUS 1,000 MG/100 ML VIAL IV PRN (04:15)
[2021-09-13] MEDS ORDERED: Ventilator Sedation Protocol 1 EACH FS SCH (04:15)
[2021-09-13] MEDS ORDERED: Lorazepam 2 MG/ML VIAL SLOW IVP PRN (04:15)
[2021-09-13] MEDS ORDERED: DISCONTINUE PREVIOUS NARCOTIC PAIN MEDICATIONS AND BENZODIAZEPINES FS SCH (04:15)
[2021-09-13] MEDS ORDERED: Morphine 2 MG/ML VIAL SLOW IVP PRN (04:15)
[2021-09-13] MEDS ORDERED: Fentanyl CADD 100 ML IVPB SCH (04:30)
[2021-09-13] MEDS ORDERED: Norepinephrine 8 MG/0.9% NS 250 ML ONE (04:48)
[2021-09-13] MEDS ORDERED: Midazolam HCl 5 mg/ml Vial ONE (05:04)
[2021-09-13] MEDS ORDERED: Vancomycin 1 GM/200 ML BAG ONE (05:40)
[2021-09-13] MEDS ORDERED: Lactated Ringer's 1,000 ML IV SCH (06:15)
[2021-09-13] MEDS ORDERED: Albuterol Sulfate 2.5 mg/0.5 ml Neb ONE (06:40)
[2021-09-13 07:26] LABS: Actual Bicarbonate (HCO3a) 21.2 mEq/L (22-28); Base Excess (BEa) -5.2 mEq/L (-2.0 to +3.0); Calcium, Ionized (arterial) 1.08 mmol/L (1.12-1.30); Carboxyhemoglobin (COHb) 0.4 gm% (0.0-3.0); Hemoglobin (Hb) 11.4 g/dL (14.0-18.0); Potassium - ABG Lab 4.06 mmol/L (3.70-5.30); pH, Arterial 7.29 (7.35-7.45)
[2021-09-13 07:29] LABS: O2 Tension (PaO2), arterial 58.8 mmHg (> 80.0); Puncture Site LRA
[2021-09-13] MEDS: Propofol 1,000 MG/100 ML VIAL IV PRN (09:04)
[2021-09-13] MEDS: Pantoprazole 40 MG VIAL IVP SCH ×2 (09:07→20:21)
[2021-09-13] MEDS: Lactated Ringer's 1,000 ML IV SCH ×2 (09:08→20:21)
[2021-09-13 09:11] LABS: #Lymphocytes 0.6 thou/uL (1.20-3.40); #Monocytes 0.4 thou/uL (0.11-0.59); #Neutrophils 6.6 thou/uL (1.40-6.50); %Basophils 0.2 % (0.0-1.0); %Eosinophils 0.5 % (0.0-10.0); %Lymphocytes 8.2 % (21.0-51.0); %Monocytes 4.8 % (0.0-10.0); %Neutrophils 86.3 % (42.0-75.0); Hemoglobin 10.7 g/dL (14.0-18.0); Mean Corpuscular HGB CONC 33.9 g/dL (32.0-36.0); Mean Corpuscular Hemoglobin 31.3 pg (27.0-31.0); Mean Corpuscular Volume 92.3 fL (78.0-98.0); Platelet Count 133 thou/uL (130-400); RBC Distribution Width 16.4 % (11.5-14.5); Red Blood Cell (RBC) Count 3.43 mill/uL (4.70-6.10); White Blood Cell (WBC) Count 7.7 thou/uL (4.8-10.8)
[2021-09-13] MEDS ORDERED: Piperacillin/Tazobactam 3.375 GM in Sodium Chloride 0.9% 100 ML IVPB SCH (09:15)
[2021-09-13] MEDS ORDERED: Piperacillin/Tazobactam 4.5 GM in Sodium Chloride 0.9% 100 ML IVPB SCH (12:00)
[2021-09-13] MEDS: Sodium Chloride 1 GM TAB PER TUBE SCH ×3 (12:19→20:22)
[2021-09-13] MEDS: Piperacillin/Tazobactam 3.375 GM in Sodium Chloride 0.9% 100 ML IVPB SCH ×2 (12:46→20:21)
[2021-09-13] MEDS: Norepinephrine 8 MG/0.9% NS 250 ML IVPB PRN (14:42)
[2021-09-13] MEDS ORDERED: Iopamidol-370 76% 500 ML 1 ML ONE (15:33)
[2021-09-14] MEDS: Norepinephrine 8 MG/0.9% NS 250 ML IVPB PRN (04:49)
[2021-09-14] MEDS: Piperacillin/Tazobactam 3.375 GM in Sodium Chloride 0.9% 100 ML IVPB SCH ×3 (04:50→20:00)
[2021-09-14] MEDS: Lactated Ringer's 1,000 ML IV SCH ×2 (04:50→15:06)
[2021-09-14 05:07] LABS: #Basophils 0.1 thou/uL (0.0-0.2); #Eosinphils 0.1 thou/uL (0.0-0.7); #Lymphocytes 0.3 thou/uL (1.20-3.40); #Monocytes 0.5 thou/uL (0.11-0.59); #Neutrophils 10.6 thou/uL (1.40-6.50); %Basophils 0.7 % (0.0-1.0); %Eosinophils 0.7 % (0.0-10.0); %Lymphocytes 2.8 % (21.0-51.0); %Monocytes 4.1 % (0.0-10.0); %Neutrophils 91.6 % (42.0-75.0); Mean Platelet Volume 7.8 fL (7.4-10.4); RBC Distribution Width 16.3 % (11.5-14.5)
[2021-09-14 05:30] VITALS: BMI 24.5
[2021-09-14 05:37] LABS: Anion Gap 13 mmol/L (10-20); BUN (Urea Nitrogen) 25 mg/dL (8.4-25.7); Calc. Creatinine Clearance 74 mL/min (70-130); Calcium 8.1 mg/dL (7.8-10.44); Carbon Dioxide 20 mmol/L (23-31); Chloride 103 mmol/L (98-107); Glucose 102 mg/dL (80-115); Potassium 3.9 mmol/L (3.5-5.1); Sodium 132 mmol/L (136-145)
[2021-09-14 05:39] LABS: Hemoglobin 9.9 g/dL (14.0-18.0); Mean Corpuscular HGB CONC 34.5 g/dL (32.0-36.0); Mean Corpuscular Hemoglobin 31.8 pg (27.0-31.0); Mean Corpuscular Volume 92.1 fL (78.0-98.0); Platelet Count 123 thou/uL (130-400); Red Blood Cell (RBC) Count 3.11 mill/uL (4.70-6.10); White Blood Cell (WBC) Count 9.5 thou/uL (4.8-10.8)
[2021-09-14] MEDS: Propofol 1,000 MG/100 ML VIAL IV PRN (06:18)
[2021-09-14 09:11] LABS: Actual Bicarbonate (HCO3v) 22 mEq/L (22-28); Base Excess -3.9 mEq/L (-2.0 to +3.0); Calcium, Ionized (venous) 1.06 mmol/L (1.16-1.32); Chloride (VBG) 103 mmol/L (98-106); Hemoglobin (Hb) 10.5 g/dL (12.6-17.4); Potassium (VBG) 4.02 mmol/L (3.70-5.30); Sodium 130.4 mmol/L (133-146); pH (venous) 7.31 (7.32-7.43)
[2021-09-14] MEDS: Sodium Chloride 1 GM TAB PER TUBE SCH ×3 (09:49→20:00)
[2021-09-14] MEDS: Pantoprazole 40 MG VIAL IVP SCH ×2 (09:49→19:59)
[2021-09-14] MEDS ORDERED: Dexamethasone 6 MG in Sodium Chloride 0.9% 50 ML IVPB SCH (12:53)
[2021-09-14] MEDS: Dexamethasone 4 mg/ml Vial ONE ×2 (13:22→14:05)
[2021-09-14] MEDS ORDERED: Dexamethasone 4 mg/ml Vial SLOW IVP SCH (14:00)
[2021-09-14] MEDS ORDERED: Acetaminophen/Codeine 30-300mg Tablet PO PRN (19:04)
[2021-09-14] MEDS: Melatonin 3 MG TAB PO PRN (20:00)
[2021-09-15] MEDS: Lactated Ringer's 1,000 ML IV SCH ×2 (00:26→13:30)
[2021-09-15 03:51] LABS: #Lymphocytes 0.2 thou/uL (1.20-3.40); #Monocytes 0.3 thou/uL (0.11-0.59); #Neutrophils 7.9 thou/uL (1.40-6.50); %Basophils 0.1 % (0.0-1.0); %Eosinophils 0.1 % (0.0-10.0); %Lymphocytes 2.6 % (21.0-51.0); %Monocytes 3.8 % (0.0-10.0); %Neutrophils 93.4 % (42.0-75.0); Hemoglobin 10.4 g/dL (14.0-18.0); Mean Corpuscular HGB CONC 34.6 g/dL (32.0-36.0); Mean Corpuscular Hemoglobin 32.1 pg (27.0-31.0); Mean Corpuscular Volume 92.7 fL (78.0-98.0); Mean Platelet Volume 8.2 fL (7.4-10.4); Platelet Count 119 thou/uL (130-400); RBC Distribution Width 15.7 % (11.5-14.5); Red Blood Cell (RBC) Count 3.25 mill/uL (4.70-6.10); White Blood Cell (WBC) Count 8.5 thou/uL (4.8-10.8)
[2021-09-15 04:07] LABS: Anion Gap 14 mmol/L (10-20); BUN (Urea Nitrogen) 21 mg/dL (8.4-25.7); Calc. Creatinine Clearance 78 mL/min (70-130); Calcium 8.7 mg/dL (7.8-10.44); Carbon Dioxide 19 mmol/L (23-31); Chloride 102 mmol/L (98-107); Glucose 164 mg/dL (80-115); Sodium 131 mmol/L (136-145)
[2021-09-15] MEDS: Piperacillin/Tazobactam 3.375 GM in Sodium Chloride 0.9% 100 ML IVPB SCH ×3 (05:59→19:49)
[2021-09-15] MEDS: Pantoprazole 40 MG VIAL IVP SCH ×2 (09:30→19:49)
[2021-09-15] MEDS ORDERED: Polyethylene Glycol 3350 17 GM Packet PO SCH (09:30)
[2021-09-15] MEDS: Sodium Chloride 1 GM TAB PER TUBE SCH ×3 (09:30→19:50)
[2021-09-15] MEDS ORDERED: Carvedilol 6.25 MG TAB PER TUBE SCH (14:00)
[2021-09-15] MEDS ORDERED: hydrALAZINE 20 MG/ML VIAL SLOW IVP PRN (18:01)
[2021-09-15] MEDS: Carvedilol 6.25 MG TAB PER TUBE SCH (19:49)
[2021-09-15] MEDS: Melatonin 3 MG TAB PO PRN (19:49)
[2021-09-15] MEDS: Acetaminophen/Codeine 30-300mg Tablet PO PRN (20:36)
[2021-09-16] MEDS: Piperacillin/Tazobactam 3.375 GM in Sodium Chloride 0.9% 100 ML IVPB SCH ×2 (05:31→12:52)
[2021-09-16] MEDS ORDERED: Polyethylene Glycol 3350 17 GM Packet PO SCH (09:00)
[2021-09-16] MEDS: Sodium Chloride 1 GM TAB PER TUBE SCH ×2 (09:57→16:21)
[2021-09-16] MEDS: Pantoprazole 40 MG VIAL IVP SCH (09:58)
[2021-09-16] MEDS: Carvedilol 6.25 MG TAB PER TUBE SCH (09:58)
[2021-09-16] MEDS: Acetaminophen/Codeine 30-300mg Tablet PO PRN (10:04)
[2021-09-16 16:08] VITALS: BP 148/86; TEMP 98
== END 2021-09-16 16:50 | disposition home or self-care (01) | DRG 146 ==
LOC: ERS 21:56 → CCU 09-13 03:30 → SURG B 09-15 18:05
PROVIDERS: ADMIT Family Medicine; ATTEND Family Medicine
PROC: 5A1945Z Respiratory Ventilation, 24-96 Consecutive Hours (ICD-10-PCS; principal; 2021-09-13)
PROC: 30233N1 Transfusion of Nonautologous Red Blood Cells into Peripheral Vein, Percutaneous Approach (ICD-10-PCS; 2021-09-13)
PROC: 0BH17EZ Insertion of Endotracheal Airway into Trachea, Via Natural or Artificial Opening (ICD-10-PCS; 2021-09-13)
PROC: 5A12012 Performance of Cardiac Output, Single, Manual (ICD-10-PCS; 2021-09-13)
PROC: 3E033XZ Introduction of Vasopressor into Peripheral Vein, Percutaneous Approach (ICD-10-PCS; 2021-09-13)
PROC: 06HY33Z Insertion of Infusion Device into Lower Vein, Percutaneous Approach (ICD-10-PCS; 2021-09-13)
DX: C09.9 Malignant neoplasm of tonsil, unspecified (principal); R57.8 Other shock; J96.01 Acute respiratory failure with hypoxia; I46.9 Cardiac arrest, cause unspecified; J69.0 Pneumonitis due to inhalation of food and vomit; E87.1 Hypo-osmolality and hyponatremia; D62 Acute posthemorrhagic anemia; J90 Pleural effusion, not elsewhere classified; K92.0 Hematemesis; Z20.822 Contact with and (suspected) exposure to COVID-19; F17.210 Nicotine dependence, cigarettes, uncomplicated; F10.10 Alcohol abuse, uncomplicated; Z60.2 Problems related to living alone; R00.0 Tachycardia, unspecified; Z95.810 Presence of automatic (implantable) cardiac defibrillator; Z93.1 Gastrostomy status; Z79.891 Long term (current) use of opiate analgesic; Z90.89 Acquired absence of other organs; Z79.899 Other long term (current) drug therapy; Z78.1 Physical restraint status; M48.00 Spinal stenosis, site unspecified; I65.23 Occlusion and stenosis of bilateral carotid arteries
CPT/HCPCS: 31500; 36415; 36430; 36556; 36600; 70498; 71045; 80048; 80053; 80306; 80307; 81003; 81015; 82805; 83605; 83690; 85014; 85018; 85025; 85610; 85730; 86850; 86900; 86901; 92950; 93005; 94002; 94003; 94640; 96365; 96366; 96368; 96375; C9113; J0171; J0456; J0696; J1100; J2250; J2354; J2405; J2543; J2704; J3010; J3370; J3490; J7050; J7120; J7620; P9016; Q9967; U0002

== ENCOUNTER 2021-09-26 11:22 | Outpatient (CLI) | payer MEDICARE, MEDICAID | END 2021-09-26 11:23 | disposition home or self-care (01) | LOC: BICCT 11:22 → CT 11:23 | PROVIDERS: ATTEND Internal Medicine Hematology & Oncology | DX: C09.8 Malignant neoplasm of overlapping sites of tonsil (principal); R91.1 Solitary pulmonary nodule; J90 Pleural effusion, not elsewhere classified; J98.4 Other disorders of lung; J98.11 Atelectasis; N62 Hypertrophy of breast; S22.20XA Unspecified fracture of sternum, initial encounter for closed fracture; S22.089A Unspecified fracture of T11-T12 vertebra, initial encounter for closed fracture; S32.019A Unspecified fracture of first lumbar vertebra, initial encounter for closed fracture; Z98.890 Other specified postprocedural states | CPT/HCPCS: 71250 ==

== ENCOUNTER 2021-10-20 05:13 | Inpatient (IN) | payer MEDICARE, MEDICAID ==
[2021-10-20 07:10] LABS: #Lymphocytes 0.5 thou/uL (1.20-3.40); #Monocytes 0.8 thou/uL (0.11-0.59); #Neutrophils 7.6 thou/uL (1.40-6.50); %Eosinophils 0.1 % (0.0-10.0); %Lymphocytes 5.3 % (21.0-51.0); %Monocytes 8.4 % (0.0-10.0); %Neutrophils 86.2 % (42.0-75.0); Hemoglobin 7.6 g/dL (14.0-18.0); Mean Corpuscular Hemoglobin 32.2 pg (27.0-31.0); Mean Corpuscular Volume 94.7 fL (78.0-98.0); Mean Platelet Volume 7.8 fL (7.4-10.4); Platelet Count 157 thou/uL (130-400); RBC Distribution Width 14.9 % (11.5-14.5); Red Blood Cell (RBC) Count 2.35 mill/uL (4.70-6.10); White Blood Cell (WBC) Count 8.9 thou/uL (4.8-10.8)
[2021-10-20 07:26] LABS: INR-International Normal Ratio 1.3; PTT 33.5 sec (22.9-36.1); Prothrombin Time 15.9 sec (12.0-14.7)
[2021-10-20 07:30] LABS: ALT (SGPT) 16 U/L (8-55); AST (SGOT) 18 U/L (5-34); Albumin 2.8 g/dL (3.4-4.8); Alkaline Phosphatase 145 U/L (40-110); Anion Gap 12 mmol/L (10-20); BUN (Urea Nitrogen) 26 mg/dL (8.4-25.7); Bilirubin, Total 0.4 mg/dL (0.2-1.2); Calc. Creatinine Clearance 0 mL/min (70-130); Calcium 7.8 mg/dL (7.8-10.44); Carbon Dioxide 19 mmol/L (23-31); Chloride 105 mmol/L (98-107); Globulin 2.8 g/dL (2.4-3.5); Glucose 123 mg/dL (80-115); Potassium 3.5 mmol/L (3.5-5.1); Protein, Total 5.6 g/dL (5.8-8.1); Sodium 132 mmol/L (136-145)
[2021-10-20 09:02] LABS: #Lymphocytes 0.5 thou/uL (1.20-3.40); #Monocytes 0.6 thou/uL (0.11-0.59); #Neutrophils 8.4 thou/uL (1.40-6.50); %Basophils 0.1 % (0.0-1.0); %Eosinophils 0.1 % (0.0-10.0); %Monocytes 6.6 % (0.0-10.0); %Neutrophils 88.3 % (42.0-75.0); Hemoglobin 8.7 g/dL (14.0-18.0); Mean Corpuscular HGB CONC 33.7 g/dL (32.0-36.0); Mean Corpuscular Hemoglobin 31.2 pg (27.0-31.0); Mean Corpuscular Volume 92.5 fL (78.0-98.0); Mean Platelet Volume 7.8 fL (7.4-10.4); Platelet Count 145 thou/uL (130-400); RBC Distribution Width 14.6 % (11.5-14.5); Red Blood Cell (RBC) Count 2.79 mill/uL (4.70-6.10); White Blood Cell (WBC) Count 9.5 thou/uL (4.8-10.8)
[2021-10-20] MEDS ORDERED: Tranexamic Acid 1,000 MG/10 ML VIAL ONE ×2 (10:07→10:15)
[2021-10-20] MEDS ORDERED: Calcium Chloride 1 GM/10 ML Abboject SYRINGE ONE (10:09)
[2021-10-20] MEDS ORDERED: Sodium Bicarb 50 MEQ/50 ML Abboject 8.4% SYRINGE ONE ×3 (10:09→11:18)
[2021-10-20] MEDS ORDERED: Atropine Sulfate 1 mg/10 ml Syringe ONE (10:09)
[2021-10-20] MEDS ORDERED: EPINEPHrine 1 MG/10 ML Abboject SYRINGE ONE (10:09)
[2021-10-20] MEDS ORDERED: Fentanyl 100 MCG/2 ML VIAL ONE (10:24)
[2021-10-20] MEDS ORDERED: EPINEPHrine 1 MG/ML AMP ONE ×2 (10:31→10:45)
[2021-10-20] MEDS ORDERED: Ferric Subsulfate (ASTRINGYN) 8 GM VIAL ONE ×2 (10:31→10:45)
[2021-10-20] MEDS ORDERED: AFRIN NASAL MIST 15 ML BOT ONE ×2 (10:31→10:45)
[2021-10-20] MEDS ORDERED: EPINEPHrine 1 MG/ML VIAL ONE (10:41)
[2021-10-20] MEDS ORDERED: Xylocaine 1% w/ Epi 1:100K 10 ML VIAL ONE (10:45)
[2021-10-20] MEDS ORDERED: fentaNYL Citrate/PF 2,000 MCG in Sodium Chloride 0.9% 60 ML IV SCH ×2 (10:45→14:15)
[2021-10-20] MEDS ORDERED: Albumin 5% 0 ML ONE ×2 (10:49→10:59)
[2021-10-20] MEDS ORDERED: Ketamine 50 MG/ML (10ML VIAL) ONE (10:49)
[2021-10-20] MEDS ORDERED: Phenylephrine 10 MG/ML VIAL ONE ×2 (10:54→10:56)
[2021-10-20] MEDS ORDERED: EPINEPHrine 4 MG in Dextrose 5% in Water 250 ML IV SCH (11:00)
[2021-10-20 11:02] LABS: #Lymphocytes 1.4 thou/uL (1.20-3.40); #Monocytes 0.2 thou/uL (0.11-0.59); #Neutrophils 5.2 thou/uL (1.40-6.50); %Eosinophils 0.2 % (0.0-10.0); %Lymphocytes 20.5 % (21.0-51.0); %Monocytes 2.2 % (0.0-10.0); %Neutrophils 77.1 % (42.0-75.0); Hemoglobin 10.3 g/dL (14.0-18.0); Mean Corpuscular HGB CONC 32.4 g/dL (32.0-36.0); Mean Corpuscular Hemoglobin 30.5 pg (27.0-31.0); Mean Corpuscular Volume 94.2 fL (78.0-98.0); Mean Platelet Volume 7.6 fL (7.4-10.4); Platelet Count 140 thou/uL (130-400); RBC Distribution Width 14.6 % (11.5-14.5); Red Blood Cell (RBC) Count 3.38 mill/uL (4.70-6.10); White Blood Cell (WBC) Count 6.7 thou/uL (4.8-10.8)
[2021-10-20 11:06] LABS: Actual Bicarbonate (HCO3a) 18.2 mEq/L (22-28); Analyzer IN Cardio ER; Base Excess (BEa) -8.2 mEq/L (-2.0 to +3.0); CO2 Tension 41.5 mmHg (35.0-45.0); Calcium, Ionized (arterial) 1.14 mmol/L (1.12-1.30); Carboxyhemoglobin (COHb) 0.3 gm% (0.0-3.0); Hemoglobin (Hb) 7.6 g/dL (14.0-18.0); O2 Tension (PaO2), arterial 214.9 mmHg (> 80.0); Potassium - ABG Lab 3.67 mmol/L (3.70-5.30); pH, Arterial 7.26 (7.35-7.45)
[2021-10-20 11:14] LABS: ALV-art Gradient 446.225 mmHg (0-20); Puncture Site RRA
[2021-10-20] MEDS ORDERED: Rocuronium Bromide 10 MG/ML (10ML VIAL) ONE (11:15)
[2021-10-20] MEDS ORDERED: PHENYLEPHRINE-NS 100 MCG/ML 10 ML SYRINGE ONE (11:15)
[2021-10-20] MEDS ORDERED: ePHEDrine 50 MG/ML VIAL ONE (11:15)
[2021-10-20] MEDS ORDERED: Sodium Bicarbonate 2.5 MEQ/5 ML VIAL ONE (11:17)
[2021-10-20 11:19] LABS: INR-International Normal Ratio 1.2; PTT 31.2 sec (22.9-36.1); Prothrombin Time 15.4 sec (12.0-14.7)
[2021-10-20 12:29] LABS: SARS-CoV-2 PCR by NAA Not Detected (NotDetected)
[2021-10-20] MEDS ORDERED: Propofol 1,000 MG/100 ML VIAL IV ONE (13:46)
[2021-10-20] MEDS ORDERED: Propofol BOLUS 1,000 MG/100 ML VIAL IV PRN (14:15)
[2021-10-20] MEDS ORDERED: Morphine 4 MG/ML VIAL SLOW IVP PRN (14:15)
[2021-10-20] MEDS ORDERED: Fentanyl BOLUS 250 ML IVPB PRN (14:15)
[2021-10-20 14:22] LABS: Base Excess (BEa) -5.1 mEq/L (-2.0 to +3.0); CO2 Tension 32.5 mmHg (35.0-45.0); Calcium, Ionized (arterial) 1.17 mmol/L (1.12-1.30); Carboxyhemoglobin (COHb) 0.8 gm% (0.0-3.0); Hemoglobin (Hb) 11.7 g/dL (14.0-18.0); O2 Tension (PaO2), arterial 78.9 mmHg (> 80.0); Potassium - ABG Lab 4.04 mmol/L (3.70-5.30); pH, Arterial 7.39 (7.35-7.45)
[2021-10-20 14:23] LABS: ALV-art Gradient 236.975 mmHg (0-20); Puncture Site RBA
[2021-10-20] MEDS ORDERED: Electrolyte Replacement Protocol 1 EACH FS PRN (14:30)
[2021-10-20] MEDS ORDERED: Nicotine 14 MG PATCH TD SCH (15:00)
[2021-10-20] MEDS ORDERED: Lactated Ringer's 1,000 ML IV SCH (15:00)
[2021-10-20] MEDS: Lactated Ringer's 1,000 ML IV SCH (15:10)
[2021-10-20] MEDS ORDERED: Electrolyte Replacement Protocol FS PRN (17:15)
[2021-10-20] MEDS ORDERED: Potassium Bicarbonate/Cit Ac 20 MEQ TAB PER TUBE SCH (17:15)
[2021-10-20 17:29] LABS: Hemoglobin 10.6 g/dL (14.0-18.0); Mean Corpuscular HGB CONC 33.9 g/dL (32.0-36.0); Mean Corpuscular Hemoglobin 31.4 pg (27.0-31.0); Mean Corpuscular Volume 92.6 fL (78.0-98.0); Red Blood Cell (RBC) Count 3.36 mill/uL (4.70-6.10)
[2021-10-20 17:45] LABS: #Lymphocytes 0.7 thou/uL (1.20-3.40); #Monocytes 1.1 thou/uL (0.11-0.59); #Neutrophils 9.3 thou/uL (1.40-6.50); %Eosinophils 0.1 % (0.0-10.0); %Lymphocytes 6.1 % (21.0-51.0); %Monocytes 9.7 % (0.0-10.0); %Neutrophils 84.2 % (42.0-75.0); Mean Platelet Volume 7.4 fL (7.4-10.4); Platelet Count 108 thou/uL (130-400); Platelet Morphology Comment Appears Decreased; RBC Morphology Normal
[2021-10-20 17:58] LABS: ALT (SGPT) 22 U/L (8-55); AST (SGOT) 33 U/L (5-34); Albumin 3.3 g/dL (3.4-4.8); Alkaline Phosphatase 142 U/L (40-110); Anion Gap 16 mmol/L (10-20); BUN (Urea Nitrogen) 26 mg/dL (8.4-25.7); Bilirubin, Total 1.6 mg/dL (0.2-1.2); Calc. Creatinine Clearance 81 mL/min (70-130); Calcium 8.5 mg/dL (7.8-10.44); Carbon Dioxide 20 mmol/L (23-31); Chloride 105 mmol/L (98-107); Globulin 2.8 g/dL (2.4-3.5); Glucose 110 mg/dL (80-115); Potassium 3.9 mmol/L (3.5-5.1); Protein, Total 6.1 g/dL (5.8-8.1); Sodium 137 mmol/L (136-145)
[2021-10-20] MEDS: methylPREDNISolone Sod Succ 40 MG VIAL IVP SCH (20:11)
[2021-10-20] MEDS: Pantoprazole 40 MG VIAL IVP SCH (20:11)
[2021-10-20] MEDS: Lorazepam 2 MG/ML VIAL SLOW IVP PRN (20:11)
[2021-10-20] MEDS: Sodium Chloride 1 GM TAB PER TUBE SCH (20:11)
[2021-10-20] MEDS: Propofol 1,000 MG/100 ML VIAL IV PRN (20:14)
[2021-10-20] MEDS: fentaNYL Citrate-0.9 % NaCl/PF 100 ML IVPB SCH (20:16)
[2021-10-21] MEDS: Lactated Ringer's 1,000 ML IV SCH ×2 (00:08→08:46)
[2021-10-21] MEDS: Propofol 1,000 MG/100 ML VIAL IV PRN ×3 (03:46→18:44)
[2021-10-21 04:08] LABS: Band 10 % (5-11); Hemoglobin 9.4 g/dL (14.0-18.0); Lymphocytes 1 % (21-51); MDiff Complete? YES; Mean Corpuscular Hemoglobin 30.5 pg (27.0-31.0); Mean Corpuscular Volume 92.6 fL (78.0-98.0); Mean Platelet Volume 7.8 fL (7.4-10.4); Monocytes 3 % (0-10); Neutrophil 86 % (42-75); Platelet Count 123 thou/uL (130-400); Platelet Morphology Comment Appears Decreased; RBC Distribution Width 14.2 % (11.5-14.5); Red Blood Cell (RBC) Count 3.06 mill/uL (4.70-6.10); White Blood Cell (WBC) Count 10.5 thou/uL (4.8-10.8)
[2021-10-21 04:20] LABS: ALT (SGPT) 18 U/L (8-55); AST (SGOT) 22 U/L (5-34); Alkaline Phosphatase 122 U/L (40-110); Anion Gap 14 mmol/L (10-20); BUN (Urea Nitrogen) 24 mg/dL (8.4-25.7); Bilirubin, Total 0.9 mg/dL (0.2-1.2); Calc. Creatinine Clearance 75 mL/min (70-130); Calcium 8.3 mg/dL (7.8-10.44); Carbon Dioxide 20 mmol/L (23-31); Chloride 106 mmol/L (98-107); Globulin 2.8 g/dL (2.4-3.5); Glucose 122 mg/dL (80-115); Potassium 4.1 mmol/L (3.5-5.1); Protein, Total 5.8 g/dL (5.8-8.1); Sodium 136 mmol/L (136-145)
[2021-10-21] MEDS: methylPREDNISolone Sod Succ 40 MG VIAL IVP SCH ×2 (08:33→21:27)
[2021-10-21] MEDS: Sodium Chloride 1 GM TAB PER TUBE SCH ×3 (08:35→21:27)
[2021-10-21] MEDS: Pantoprazole 40 MG VIAL IVP SCH ×2 (08:47→21:27)
[2021-10-21] MEDS: Polyethylene Glycol 3350 17 GM Packet PER TUBE SCH (08:49)
[2021-10-21] MEDS: Senokot S 8.6-50 MG TAB PO SCH ×2 (08:49→21:26)
[2021-10-22] MEDS: Propofol 1,000 MG/100 ML VIAL IV PRN (01:31)
[2021-10-22 04:08] LABS: Band 12 % (5-11); Hemoglobin 9.1 g/dL (14.0-18.0); Hypochromia SLIGHT = 6-15 cells (100X) (0-5/hpf); Lymphocytes 7 % (21-51); MDiff Complete? YES; Mean Corpuscular HGB CONC 34.7 g/dL (32.0-36.0); Mean Corpuscular Hemoglobin 31.7 pg (27.0-31.0); Mean Corpuscular Volume 91.2 fL (78.0-98.0); Monocytes 3 % (0-10); Neutrophil 78 % (42-75); Platelet Count 126 thou/uL (130-400); Platelet Morphology Comment Appears Adequate; Red Blood Cell (RBC) Count 2.87 mill/uL (4.70-6.10); White Blood Cell (WBC) Count 8.9 thou/uL (4.8-10.8)
[2021-10-22] MEDS: fentaNYL Citrate-0.9 % NaCl/PF 100 ML IVPB SCH (04:14)
[2021-10-22 04:19] LABS: Anion Gap 13 mmol/L (10-20); BUN (Urea Nitrogen) 23 mg/dL (8.4-25.7); Calc. Creatinine Clearance 87 mL/min (70-130); Calcium 8.3 mg/dL (7.8-10.44); Carbon Dioxide 20 mmol/L (23-31); Chloride 107 mmol/L (98-107); Glucose 157 mg/dL (80-115); Potassium 4.3 mmol/L (3.5-5.1); Sodium 136 mmol/L (136-145)
[2021-10-22] MEDS: Lactated Ringer's 1,000 ML IV SCH ×2 (04:45→06:09)
[2021-10-22] MEDS: Sodium Chloride 1 GM TAB PER TUBE SCH ×3 (08:03→20:23)
[2021-10-22] MEDS: Senokot S 8.6-50 MG TAB PO SCH ×3 (08:03→20:23)
[2021-10-22] MEDS: Pantoprazole 40 MG VIAL IVP SCH ×2 (08:03→20:23)
[2021-10-22] MEDS: methylPREDNISolone Sod Succ 40 MG VIAL IVP SCH (08:03)
[2021-10-22] MEDS: Polyethylene Glycol 3350 17 GM Packet PER TUBE SCH (08:03)
[2021-10-22 08:10] LABS: Actual Bicarbonate (HCO3a) 21.2 mEq/L (22-28); Base Excess (BEa) -2.9 mEq/L (-2.0 to +3.0); CO2 Tension 34.5 mmHg (35.0-45.0); Calcium, Ionized (arterial) 1.17 mmol/L (1.12-1.30); Carboxyhemoglobin (COHb) 0.3 gm% (0.0-3.0); Hemoglobin (Hb) 11.1 g/dL (14.0-18.0); O2 Tension (PaO2), arterial 85.2 mmHg (> 80.0); Potassium - ABG Lab 4.11 mmol/L (3.70-5.30); pH, Arterial 7.41 (7.35-7.45)
[2021-10-22 08:13] LABS: ALV-art Gradient 156.875 mmHg (0-20); Puncture Site RRA
[2021-10-22] MEDS ORDERED: methylPREDNISolone Sod Succ 40 MG VIAL IVP SCH (21:00)
[2021-10-22] MEDS: Lorazepam 2 MG/ML VIAL SLOW IVP PRN (22:32)
[2021-10-23] MEDS: Propofol 1,000 MG/100 ML VIAL IV PRN (01:25)
[2021-10-23 04:21] LABS: Band 14 % (5-11); Hemoglobin 9.4 g/dL (14.0-18.0); Lymphocytes 7 % (21-51); MDiff Complete? YES; Mean Corpuscular HGB CONC 33.6 g/dL (32.0-36.0); Mean Corpuscular Hemoglobin 31.5 pg (27.0-31.0); Mean Corpuscular Volume 93.8 fL (78.0-98.0); Mean Platelet Volume 7.7 fL (7.4-10.4); Monocytes 7 % (0-10); Neutrophil 72 % (42-75); Platelet Count 156 thou/uL (130-400); Platelet Morphology Comment Appears Adequate; RBC Distribution Width 14.1 % (11.5-14.5); Red Blood Cell (RBC) Count 2.97 mill/uL (4.70-6.10); White Blood Cell (WBC) Count 10.4 thou/uL (4.8-10.8)
[2021-10-23 04:27] LABS: Anion Gap 11 mmol/L (10-20); BUN (Urea Nitrogen) 28 mg/dL (8.4-25.7); Calc. Creatinine Clearance 82 mL/min (70-130); Calcium 8.3 mg/dL (7.8-10.44); Carbon Dioxide 23 mmol/L (23-31); Chloride 109 mmol/L (98-107); Glucose 121 mg/dL (80-115); Potassium 4.1 mmol/L (3.5-5.1); Sodium 139 mmol/L (136-145)
[2021-10-23] MEDS: Senokot S 8.6-50 MG TAB PO SCH ×2 (08:47→20:14)
[2021-10-23] MEDS: Pantoprazole 40 MG VIAL IVP SCH ×2 (08:47→20:13)
[2021-10-23] MEDS: Sodium Chloride 1 GM TAB PER TUBE SCH ×3 (08:47→20:13)
[2021-10-23] MEDS: methylPREDNISolone Sod Succ 40 MG VIAL IVP SCH (08:47)
[2021-10-23] MEDS: Polyethylene Glycol 3350 17 GM Packet PER TUBE SCH (08:47)
[2021-10-23] MEDS: Acetaminophen 650 MG/20.3 ML UDCUP PER TUBE PRN ×2 (14:47→19:47)
[2021-10-24] MEDS: Acetaminophen 650 MG/20.3 ML UDCUP PER TUBE PRN ×2 (02:28→18:41)
[2021-10-24 04:17] LABS: Band 3 % (5-11); Hemoglobin 9.2 g/dL (14.0-18.0); Hypochromia SLIGHT = 6-15 cells (100X) (0-5/hpf); Lymphocytes 12 % (21-51); MDiff Complete? YES; Mean Corpuscular HGB CONC 32.4 g/dL (32.0-36.0); Mean Corpuscular Hemoglobin 31.1 pg (27.0-31.0); Mean Corpuscular Volume 95.9 fL (78.0-98.0); Mean Platelet Volume 7.4 fL (7.4-10.4); Monocytes 24 % (0-10); Neutrophil 61 % (42-75); Platelet Count 153 thou/uL (130-400); Platelet Morphology Comment Appears Adequate; RBC Distribution Width 14.3 % (11.5-14.5); Red Blood Cell (RBC) Count 2.95 mill/uL (4.70-6.10); White Blood Cell (WBC) Count 9.6 thou/uL (4.8-10.8)
[2021-10-24 04:23] LABS: Anion Gap 12 mmol/L (10-20); BUN (Urea Nitrogen) 32 mg/dL (8.4-25.7); Calc. Creatinine Clearance 91 mL/min (70-130); Calcium 8.4 mg/dL (7.8-10.44); Carbon Dioxide 23 mmol/L (23-31); Chloride 108 mmol/L (98-107); Glucose 90 mg/dL (80-115); Potassium 3.8 mmol/L (3.5-5.1); Sodium 139 mmol/L (136-145)
[2021-10-24] MEDS: Pantoprazole 40 MG VIAL IVP SCH ×2 (09:26→20:48)
[2021-10-24] MEDS: Senokot S 8.6-50 MG TAB PO SCH ×2 (09:26→20:48)
[2021-10-24] MEDS: Polyethylene Glycol 3350 17 GM Packet PER TUBE SCH (09:26)
[2021-10-24] MEDS: Sodium Chloride 1 GM TAB PER TUBE SCH ×3 (09:26→20:48)
[2021-10-24] MEDS: methylPREDNISolone Sod Succ 40 MG VIAL IVP SCH (09:26)
[2021-10-24] MEDS ORDERED: Furosemide 20 MG/2 ML VIAL SLOW IVP SCH (10:30)
[2021-10-24] MEDS ORDERED: hydrALAZINE 20 MG/ML VIAL SLOW IVP PRN (12:16)
[2021-10-24] MEDS ORDERED: Amlodipine 5 MG TAB PER TUBE SCH (12:30)
[2021-10-24] MEDS ORDERED: diphenhydrAMINE 50 MG/ML VIAL IVP SCH (23:00)
[2021-10-25 04:16] LABS: Band 4 % (5-11); Hemoglobin 10.8 g/dL (14.0-18.0); Lymphocytes 7 % (21-51); MDiff Complete? YES; Mean Corpuscular HGB CONC 33.3 g/dL (32.0-36.0); Mean Corpuscular Hemoglobin 31.6 pg (27.0-31.0); Mean Corpuscular Volume 94.9 fL (78.0-98.0); Mean Platelet Volume 7.5 fL (7.4-10.4); Monocytes 9 % (0-10); Neutrophil 80 % (42-75); Platelet Count 193 thou/uL (130-400); Platelet Morphology Comment Appears Adequate; RBC Distribution Width 14.4 % (11.5-14.5); Red Blood Cell (RBC) Count 3.41 mill/uL (4.70-6.10); White Blood Cell (WBC) Count 8.7 thou/uL (4.8-10.8)
[2021-10-25 04:45] LABS: Anion Gap 17 mmol/L (10-20); BUN (Urea Nitrogen) 24 mg/dL (8.4-25.7); Calc. Creatinine Clearance 89 mL/min (70-130); Calcium 8.9 mg/dL (7.8-10.44); Carbon Dioxide 24 mmol/L (23-31); Chloride 106 mmol/L (98-107); Glucose 97 mg/dL (80-115); Potassium 3.5 mmol/L (3.5-5.1); Sodium 143 mmol/L (136-145)
[2021-10-25] MEDS ORDERED: Potassium Bicarbonate/Cit Ac 20 MEQ TAB PER TUBE SCH (07:00)
[2021-10-25] MEDS: Acetaminophen 650 MG/20.3 ML UDCUP PER TUBE PRN ×2 (07:16→22:01)
[2021-10-25] MEDS ORDERED: Furosemide 20 MG/2 ML VIAL SLOW IVP SCH (09:00)
[2021-10-25] MEDS: Pantoprazole 40 MG VIAL IVP SCH ×2 (09:11→21:06)
[2021-10-25] MEDS: Polyethylene Glycol 3350 17 GM Packet PER TUBE SCH (09:11)
[2021-10-25] MEDS: Senokot S 8.6-50 MG TAB PO SCH ×2 (09:11→21:06)
[2021-10-25] MEDS: Amlodipine 5 MG TAB PER TUBE SCH (09:11)
[2021-10-25] MEDS: Sodium Chloride 1 GM TAB PER TUBE SCH ×3 (09:11→21:06)
[2021-10-25 12:42] LABS: Potassium 3.8 mmol/L (3.5-5.1)
[2021-10-25] MEDS: Melatonin 3 MG TAB PO PRN (21:05)
[2021-10-25] MEDS ORDERED: Gabapentin 300 MG CAP PO SCH (23:00)
[2021-10-26 06:18] LABS: Anion Gap 13 mmol/L (10-20); BUN (Urea Nitrogen) 21 mg/dL (8.4-25.7); Calc. Creatinine Clearance 86 mL/min (70-130); Calcium 8.8 mg/dL (7.8-10.44); Carbon Dioxide 26 mmol/L (23-31); Chloride 105 mmol/L (98-107); Glucose 105 mg/dL (80-115); Potassium 3.3 mmol/L (3.5-5.1); Sodium 141 mmol/L (136-145)
[2021-10-26 06:18] LABS: Band 10 % (5-11); Hemoglobin 10.1 g/dL (14.0-18.0); Hypochromia SLIGHT = 6-15 cells (100X) (0-5/hpf); Lymphocytes 11 % (21-51); MDiff Complete? YES; Mean Corpuscular HGB CONC 33.3 g/dL (32.0-36.0); Mean Corpuscular Hemoglobin 31.5 pg (27.0-31.0); Mean Corpuscular Volume 94.5 fL (78.0-98.0); Mean Platelet Volume 7.2 fL (7.4-10.4); Monocytes 8 % (0-10); Neutrophil 71 % (42-75); Platelet Count 211 thou/uL (130-400); Platelet Morphology Comment Appears Adequate; RBC Distribution Width 14.3 % (11.5-14.5); Red Blood Cell (RBC) Count 3.22 mill/uL (4.70-6.10); White Blood Cell (WBC) Count 7.2 thou/uL (4.8-10.8)
[2021-10-26] MEDS ORDERED: Gabapentin 300 MG CAP PO SCH (09:00)
[2021-10-26] MEDS: Pantoprazole 40 MG VIAL IVP SCH ×2 (09:02→20:40)
[2021-10-26] MEDS: Sodium Chloride 1 GM TAB PER TUBE SCH ×3 (09:03→20:39)
[2021-10-26] MEDS: Amlodipine 5 MG TAB PER TUBE SCH (09:03)
[2021-10-26] MEDS: Senokot S 8.6-50 MG TAB PO SCH ×2 (09:03→20:39)
[2021-10-26] MEDS: Polyethylene Glycol 3350 17 GM Packet PER TUBE SCH (09:03)
[2021-10-26] MEDS ORDERED: Potassium Bicarbonate/Cit Ac 20 MEQ TAB PER TUBE SCH ×2 (09:15→11:30)
[2021-10-26 09:52] LABS: Polychromasia SLIGHT = 2-3 cells (100X) (0-2/hpf)
[2021-10-26 12:29] VITALS: BMI 23.1
[2021-10-26 13:39] LABS: Potassium 3.8 mmol/L (3.5-5.1)
[2021-10-26] MEDS: Acetaminophen 650 MG/20.3 ML UDCUP PER TUBE PRN (20:38)
[2021-10-26] MEDS: Melatonin 3 MG TAB PO PRN (20:39)
[2021-10-26 23:04] LABS: SARS-CoV-2 PCR by NAA Not Detected (NotDetected)
[2021-10-27 04:27] LABS: Band 10 % (5-11); Hemoglobin 9.4 g/dL (14.0-18.0); Lymphocytes 12 % (21-51); MDiff Complete? YES; Mean Corpuscular HGB CONC 32.7 g/dL (32.0-36.0); Mean Corpuscular Hemoglobin 31.2 pg (27.0-31.0); Mean Corpuscular Volume 95.3 fL (78.0-98.0); Mean Platelet Volume 6.9 fL (7.4-10.4); Metamyelocyte 1 % (0-0); Monocytes 10 % (0-10); Neutrophil 67 % (42-75); Platelet Count 191 thou/uL (130-400); Platelet Morphology Comment Appears Adequate; RBC Distribution Width 14.2 % (11.5-14.5)
[2021-10-27 04:33] LABS: Anion Gap 11 mmol/L (10-20); BUN (Urea Nitrogen) 20 mg/dL (8.4-25.7); Calc. Creatinine Clearance 84 mL/min (70-130); Calcium 8.6 mg/dL (7.8-10.44); Carbon Dioxide 29 mmol/L (23-31); Chloride 103 mmol/L (98-107); Glucose 113 mg/dL (80-115); Sodium 139 mmol/L (136-145)
[2021-10-27] MEDS: Senokot S 8.6-50 MG TAB PO SCH ×2 (09:03→20:55)
[2021-10-27] MEDS: Polyethylene Glycol 3350 17 GM Packet PER TUBE SCH (09:03)
[2021-10-27] MEDS: Amlodipine 5 MG TAB PER TUBE SCH (09:06)
[2021-10-27] MEDS: Pantoprazole 40 MG VIAL IVP SCH ×2 (09:06→20:55)
[2021-10-27] MEDS: Sodium Chloride 1 GM TAB PER TUBE SCH ×3 (09:06→20:55)
[2021-10-27] MEDS: Melatonin 3 MG TAB PO PRN (20:55)
[2021-10-27] MEDS: Acetaminophen 650 MG/20.3 ML UDCUP PER TUBE PRN (21:19)
[2021-10-28] MEDS: Pantoprazole 40 MG VIAL IVP SCH ×2 (08:53→20:58)
[2021-10-28] MEDS: Amlodipine 5 MG TAB PER TUBE SCH (08:53)
[2021-10-28] MEDS: Senokot S 8.6-50 MG TAB PO SCH ×2 (08:53→20:58)
[2021-10-28] MEDS: Sodium Chloride 1 GM TAB PER TUBE SCH ×3 (08:53→20:58)
[2021-10-28] MEDS: Polyethylene Glycol 3350 17 GM Packet PER TUBE SCH (08:53)
[2021-10-28] MEDS: Melatonin 3 MG TAB PO PRN (20:58)
[2021-10-28] MEDS: Acetaminophen 650 MG/20.3 ML UDCUP PER TUBE PRN (21:04)
[2021-10-29 08:33] VITALS: BP 120/64; TEMP 97.4
[2021-10-29] MEDS: Pantoprazole 40 MG VIAL IVP SCH (08:56)
[2021-10-29] MEDS: Polyethylene Glycol 3350 17 GM Packet PER TUBE SCH (08:56)
[2021-10-29] MEDS: Amlodipine 5 MG TAB PER TUBE SCH (08:56)
[2021-10-29] MEDS: Senokot S 8.6-50 MG TAB PO SCH (08:56)
[2021-10-29] MEDS: Sodium Chloride 1 GM TAB PER TUBE SCH ×2 (08:56→14:29)
[2021-10-29] MEDS: Acetaminophen 650 MG/20.3 ML UDCUP PER TUBE PRN ×2 (08:59→14:29)
== END 2021-10-29 17:45 | DRG 143 ==
LOC: ERS 05:13 → ERHOLD 06:07 → UNDOADMIN 06:07 → ERHOLD 08:26 → CCU 11:11 → IMCU/EMU 10-24 16:10 → T4-B 10-27 13:50
PROVIDERS: ADMIT Radiology Radiation Oncology; ATTEND Radiology Radiation Oncology
PROC: 03LM3DZ Occlusion of Right External Carotid Artery with Intraluminal Device, Percutaneous Approach (ICD-10-PCS; principal; 2021-10-20)
PROC: 5A1945Z Respiratory Ventilation, 24-96 Consecutive Hours (ICD-10-PCS; 2021-10-20)
PROC: B3131ZZ Fluoroscopy of Right Common Carotid Artery using Low Osmolar Contrast (ICD-10-PCS; 2021-10-20)
PROC: B31R1ZZ Fluoroscopy of Intracranial Arteries using Low Osmolar Contrast (ICD-10-PCS; 2021-10-20)
PROC: B3191ZZ Fluoroscopy of Right External Carotid Artery using Low Osmolar Contrast (ICD-10-PCS; 2021-10-20)
PROC: B4101ZZ Fluoroscopy of Abdominal Aorta using Low Osmolar Contrast (ICD-10-PCS; 2021-10-20)
PROC: 30233K1 Transfusion of Nonautologous Frozen Plasma into Peripheral Vein, Percutaneous Approach (ICD-10-PCS; 2021-10-20)
PROC: 30233N1 Transfusion of Nonautologous Red Blood Cells into Peripheral Vein, Percutaneous Approach (ICD-10-PCS; 2021-10-20)
PROC: 0BH17EZ Insertion of Endotracheal Airway into Trachea, Via Natural or Artificial Opening (ICD-10-PCS; 2021-10-20)
PROC: 0D9670Z Drainage of Stomach with Drainage Device, Via Natural or Artificial Opening (ICD-10-PCS; 2021-10-20)
PROC: 5A12012 Performance of Cardiac Output, Single, Manual (ICD-10-PCS; 2021-10-20)
PROC: 3E033XZ Introduction of Vasopressor into Peripheral Vein, Percutaneous Approach (ICD-10-PCS; 2021-10-20)
PROC: 5A2204Z Restoration of Cardiac Rhythm, Single (ICD-10-PCS; 2021-10-20)
DX: C09.9 Malignant neoplasm of tonsil, unspecified (principal); J96.01 Acute respiratory failure with hypoxia; R57.8 Other shock; I46.8 Cardiac arrest due to other underlying condition; I63.9 Cerebral infarction, unspecified; I49.01 Ventricular fibrillation; E87.1 Hypo-osmolality and hyponatremia; R04.2 Hemoptysis; D62 Acute posthemorrhagic anemia; J90 Pleural effusion, not elsewhere classified; J98.11 Atelectasis; Z20.822 Contact with and (suspected) exposure to COVID-19; J35.8 Other chronic diseases of tonsils and adenoids; F17.210 Nicotine dependence, cigarettes, uncomplicated; R00.1 Bradycardia, unspecified; F10.10 Alcohol abuse, uncomplicated; G47.00 Insomnia, unspecified; J44.9 Chronic obstructive pulmonary disease, unspecified; G25.81 Restless legs syndrome; H54.7 Unspecified visual loss; K59.00 Constipation, unspecified; Z78.1 Physical restraint status; Z79.899 Other long term (current) drug therapy; Z93.1 Gastrostomy status; R13.10 Dysphagia, unspecified
CPT/HCPCS: 31500; 36415; 36430; 36600; 51702; 61624; 70553; 71045; 71046; 80048; 80053; 82805; 85007; 85025; 85027; 85610; 85730; 86850; 86900; 86901; 92950; 93005; 94002; 94640; 96365; 96375; 96376; C1713; C1887; C1889; C9113; J0171; J0360; J0461; J1200; J1940; J2060; J2370; J2704; J2920; J3010; J3490; J7120; J7620; P9016; P9045; P9048; P9059; U0003; U0005

== ENCOUNTER 2021-11-08 13:27 | Outpatient (CLI) | payer MEDICARE, MEDICAID | END 2021-11-08 13:28 | disposition home or self-care (01) | LOC: RAD 13:27 | PROVIDERS: ATTEND Internal Medicine Critical Care Medicine | DX: R06.00 Dyspnea, unspecified (principal) | CPT/HCPCS: 71046 ==

== ENCOUNTER 2022-03-16 08:30 | Outpatient (CLI) | payer MEDICARE, OTHER | END 2022-03-16 08:31 | disposition home or self-care (01) | LOC: PET 08:30 | PROVIDERS: ATTEND Internal Medicine Hematology & Oncology | DX: C09.8 Malignant neoplasm of overlapping sites of tonsil (principal); E83.52 Hypercalcemia; C79.51 Secondary malignant neoplasm of bone | CPT/HCPCS: 78815; A9552 ==

== ENCOUNTER 2022-04-03 11:38 | Outpatient (CLI) | payer MEDICARE, OTHER | END 2022-04-03 11:39 | disposition home or self-care (01) | LOC: NM 11:38 | PROVIDERS: ATTEND Radiology Radiation Oncology | DX: C79.51 Secondary malignant neoplasm of bone (principal) | CPT/HCPCS: 78306; A9503 ==

== ENCOUNTER 2022-04-11 14:37 | Observation (INO) | payer OTHER ==
[2022-04-11] MEDS ORDERED: Acetaminophen 500 MG TAB PO SCH (20:30)
[2022-04-11] MEDS ORDERED: diphenhydrAMINE 25 MG CAP PO SCH (20:30)
[2022-04-11 21:37] VITALS: BMI 23.5
[2022-04-11 22:13] LABS: PTT 31.7 sec (22.9-36.1); Prothrombin Time 13.5 sec (12.0-14.7)
[2022-04-11 22:21] LABS: ALT (SGPT) 15 U/L (8-55); AST (SGOT) 26 U/L (5-34); Albumin 3.7 g/dL (3.4-4.8); Alkaline Phosphatase 172 U/L (40-110); Anion Gap 16 mmol/L (10-20); BUN (Urea Nitrogen) 28 mg/dL (8.4-25.7); Bilirubin, Total 0.5 mg/dL (0.2-1.2); Calc. Creatinine Clearance 88 mL/min (70-130); Calcium 9.7 mg/dL (7.8-10.44); Carbon Dioxide 25 mmol/L (23-31); Chloride 94 mmol/L (98-107); Estimated GFR 98; Globulin 3.8 g/dL (2.4-3.5); Glucose 129 mg/dL (80-115); Potassium 4.4 mmol/L (3.5-5.1); Protein, Total 7.5 g/dL (5.8-8.1); Sodium 131 mmol/L (136-145)
[2022-04-11 22:36] LABS: Band 19 % (5-11); Hemoglobin 9.2 g/dL (14.0-18.0); Lymphocytes 2 % (21-51); MDiff Complete? YES; Macrocytosis SLIGHT = 6-15 cells (100X) (0-5/hpf); Mean Corpuscular HGB CONC 31.6 g/dL (32.0-36.0); Mean Corpuscular Hemoglobin 31.5 pg (27.0-31.0); Mean Corpuscular Volume 99.9 fL (78.0-98.0); Mean Platelet Volume 6.9 fL (7.4-10.4); Metamyelocyte 4 % (0-0); Neutrophil 75 % (42-75); Ovalocytes SLIGHT = 2-5 cells (100X) (0-1/hpf); Platelet Count 171 thou/uL (130-400); Platelet Morphology Comment Appears Adequate; RBC Distribution Width 12.9 % (11.5-14.5); Red Blood Cell (RBC) Count 2.92 mill/uL (4.70-6.10); Target Cells SLIGHT = 2-5 cells (100X) (0-1/hpf); White Blood Cell (WBC) Count 8.8 thou/uL (4.8-10.8)
[2022-04-12] MEDS ORDERED: Acetaminophen 325 MG TAB PO PRN (01:45)
[2022-04-12] MEDS ORDERED: HYDROcodone/Acetaminophen 5/325 mg Tablet PER TUBE PRN (02:09)
[2022-04-12] MEDS ORDERED: Ibuprofen 600 MG TAB PER TUBE PRN (02:09)
[2022-04-12] MEDS ORDERED: Melatonin 3 MG TAB PER TUBE PRN (02:14)
[2022-04-12] MEDS ORDERED: HYDROcodone/Acetaminophen 5/325 mg Tablet PO SCH (02:15)
[2022-04-12] MEDS ORDERED: HYDROcodone/Acetaminophen 5/325 mg Tablet PER TUBE SCH (02:55)
[2022-04-12] MEDS: Nicotine 14 MG PATCH TD SCH (03:58)
[2022-04-12] MEDS ORDERED: HYDROcodone/Acetaminophen 5/325 mg Tablet PO PRN (06:00)
[2022-04-12 07:24] LABS: Hemoglobin 7.8 g/dL (14.0-18.0); Mean Corpuscular HGB CONC 32.3 g/dL (32.0-36.0); Mean Corpuscular Hemoglobin 32.3 pg (27.0-31.0); Mean Corpuscular Volume 99.9 fL (78.0-98.0); Platelet Count 155 thou/uL (130-400); RBC Distribution Width 12.8 % (11.5-14.5); Red Blood Cell (RBC) Count 2.43 mill/uL (4.70-6.10); White Blood Cell (WBC) Count 13.2 thou/uL (4.8-10.8)
[2022-04-12 07:47] LABS: Anion Gap 16 mmol/L (10-20); BUN (Urea Nitrogen) 28 mg/dL (8.4-25.7); Calc. Creatinine Clearance 91 mL/min (70-130); Calcium 9.3 mg/dL (7.8-10.44); Carbon Dioxide 25 mmol/L (23-31); Chloride 97 mmol/L (98-107); Estimated GFR 99; Glucose 120 mg/dL (80-115); Potassium 4.3 mmol/L (3.5-5.1); Sodium 134 mmol/L (136-145)
[2022-04-12] MEDS: Gabapentin 300 MG CAP PER TUBE SCH ×3 (10:12→20:30)
[2022-04-12] MEDS: Sodium Chloride 1 GM TAB PER TUBE SCH ×3 (10:14→20:29)
[2022-04-12] MEDS ORDERED: Lidocaine 5% Patch TD SCH (10:15)
[2022-04-12] MEDS: Acetaminophen 500 MG TAB PER TUBE SCH ×3 (10:32→20:31)
[2022-04-12 10:56] LABS: Band 11 % (5-11); Lymphocytes 1 % (21-51); MDiff Complete? YES; Neutrophil 88 % (42-75); Platelet Morphology Comment Appears Adequate; Polychromasia SLIGHT = 2-3 cells (100X) (0-2/hpf)
[2022-04-12 11:19] LABS: SARS-CoV-2 NAA Rapid Test Not Detected (NotDetected)
[2022-04-12] MEDS ORDERED: Propofol 1,000 MG/100 ML VIAL IV ONE (13:35)
[2022-04-12] MEDS ORDERED: fentaNYL Citrate/PF 100 MCG/2 ML SYRINGE ONE (13:35)
[2022-04-12] MEDS ORDERED: Lidocaine 2% PF 5 ML VIAL ONE ×2 (13:46→14:38)
[2022-04-12] MEDS ORDERED: CEFAZOLIN 2 GM VIAL ONE (13:55)
[2022-04-12] MEDS ORDERED: Sodium Chloride 0.9% 100 ML ONE (13:56)
[2022-04-12] MEDS ORDERED: PROPOFOL 200 MG/20 ML VIAL ONE (14:13)
[2022-04-12] MEDS ORDERED: Transdermal Patch Removal TOP SCH (21:00)
[2022-04-13] MEDS: Nicotine 14 MG PATCH TD SCH (03:39)
[2022-04-13 05:47] LABS: Anion Gap 16 mmol/L (10-20); BUN (Urea Nitrogen) 26 mg/dL (8.4-25.7); Calc. Creatinine Clearance 99 mL/min (70-130); Calcium 9.1 mg/dL (7.8-10.44); Carbon Dioxide 22 mmol/L (23-31); Chloride 100 mmol/L (98-107); Estimated GFR 101; Glucose 103 mg/dL (80-115); Potassium 4.2 mmol/L (3.5-5.1); Sodium 134 mmol/L (136-145)
[2022-04-13 06:11] LABS: Band 19 % (5-11); Hypochromia SLIGHT = 6-15 cells (100X) (0-5/hpf); Lymphocytes 3 % (21-51); MDiff Complete? YES; Mean Corpuscular HGB CONC 32.7 g/dL (32.0-36.0); Monocytes 3 % (0-10); Neutrophil 75 % (42-75); Platelet Count 127 thou/uL (130-400); Platelet Morphology Comment Appears Adequate; RBC Distribution Width 12.7 % (11.5-14.5); Red Blood Cell (RBC) Count 2.43 mill/uL (4.70-6.10)
[2022-04-13 07:07] VITALS: BP 153/72; TEMP 97.7
[2022-04-13] MEDS: Gabapentin 300 MG CAP PER TUBE SCH (08:59)
[2022-04-13] MEDS: Sodium Chloride 1 GM TAB PER TUBE SCH (09:00)
[2022-04-13] MEDS: Acetaminophen 500 MG TAB PER TUBE SCH (09:00)
[2022-04-13] MEDS ORDERED: Lidocaine 5% Patch TD SCH (09:00)
== END 2022-04-13 10:45 | disposition home or self-care (01) ==
LOC: MSONC 18:39 → INTOOBSV 18:39
PROVIDERS: ADMIT Family Medicine; ATTEND Family Medicine
PROC: 0JH60WZ Insertion of Totally Implantable Vascular Access Device into Chest Subcutaneous Tissue and Fascia, Open Approach (ICD-10-PCS; principal; 2022-04-12)
PROC: 02HV33Z Insertion of Infusion Device into Superior Vena Cava, Percutaneous Approach (ICD-10-PCS; 2022-04-12)
PROC: 0JB60ZZ Excision of Chest Subcutaneous Tissue and Fascia, Open Approach (ICD-10-PCS; 2022-04-12)
DX: C09.9 Malignant neoplasm of tonsil, unspecified (principal); D63.0 Anemia in neoplastic disease; I87.2 Venous insufficiency (chronic) (peripheral); C49.3 Malignant neoplasm of connective and soft tissue of thorax; D72.819 Decreased white blood cell count, unspecified; J44.9 Chronic obstructive pulmonary disease, unspecified; G62.9 Polyneuropathy, unspecified; G47.00 Insomnia, unspecified; M19.90 Unspecified osteoarthritis, unspecified site; I25.2 Old myocardial infarction; G89.3 Neoplasm related pain (acute) (chronic); M25.519 Pain in unspecified shoulder; M25.559 Pain in unspecified hip; Z86.73 Personal history of transient ischemic attack (TIA), and cerebral infarction without residual deficits; Z87.891 Personal history of nicotine dependence; Z79.899 Other long term (current) drug therapy; Z93.1 Gastrostomy status; Z20.822 Contact with and (suspected) exposure to COVID-19
CPT/HCPCS: 21555; 36561; 71045; 77412; 80048 ×2; 80053; 85025 ×3; 85610; 85730; 86850; 86900; 86901; 86920; 94640 ×2; C1788; G0378 ×3; G0379; U0002; 36415; 88305; 88341; 88342; J0690; J1642; J2001; J2704; J3490; J7620

== ENCOUNTER 2022-04-19 17:18 | Inpatient (IN) | payer OTHER, MEDICAID ==
[~2022-04-19 17:18] MED LIST changes: -EPINEPHrine 1 MG/10 ML Abboject SYRINGE ONE; +Heparin 1,000 UNITS/ML VIAL ONE; +Iopamidol-370 76% 500 ML 1 ML ONE
[2022-04-19] MEDS ORDERED: Fentanyl 100 MCG/2 ML VIAL ONE (18:42)
[2022-04-19 19:03] LABS: Hemoglobin 6.8 g/dL (14.0-18.0); Mean Corpuscular HGB CONC 31.8 g/dL (32.0-36.0); RBC Distribution Width 12.5 % (11.5-14.5); Red Blood Cell (RBC) Count 2.12 mill/uL (4.70-6.10); White Blood Cell (WBC) Count 3.8 thou/uL (4.8-10.8)
[2022-04-19 19:12] LABS: INR-International Normal Ratio 1.1; PTT 29.1 sec (22.9-36.1); Prothrombin Time 14.2 sec (12.0-14.7)
[2022-04-19 19:17] LABS: ALT (SGPT) 22 U/L (8-55); AST (SGOT) 32 U/L (5-34); Albumin 3.3 g/dL (3.4-4.8); Alkaline Phosphatase 163 U/L (40-110); Anion Gap 16 mmol/L (10-20); BUN (Urea Nitrogen) 31 mg/dL (8.4-25.7); Bilirubin, Total 0.7 mg/dL (0.2-1.2); Calc. Creatinine Clearance 0 mL/min (70-130); Calcium 8.9 mg/dL (7.8-10.44); Carbon Dioxide 24 mmol/L (23-31); Chloride 101 mmol/L (98-107); Estimated GFR 101; Globulin 2.9 g/dL (2.4-3.5); Glucose 112 mg/dL (80-115); Lipase 23 U/L (8-78); Magnesium 1.5 mg/dL (1.6-2.6); Potassium 3.3 mmol/L (3.5-5.1); Protein, Total 6.2 g/dL (5.8-8.1); Sodium 138 mmol/L (136-145)
[2022-04-19 19:28] LABS: Band 17 % (5-11); Hypochromia SLIGHT = 6-15 cells (100X) (0-5/hpf); Lymphocytes 5 % (21-51); MDiff Complete? YES; Macrocytosis SLIGHT = 6-15 cells (100X) (0-5/hpf); Mean Platelet Volume 8.1 fL (7.4-10.4); Monocytes 28 % (0-10); Neutrophil 46 % (42-75); Nucleated RBC 1 % (0); Platelet Count 28 thou/uL (130-400); Platelet Morphology Comment Appears Decreased; Polychromasia SLIGHT = 2-3 cells (100X) (0-2/hpf); Reactive Lymphocytes 4 % (0-10)
[2022-04-19 19:32] LABS: Dohle Bodies SLIGHT
[2022-04-19 19:37] LABS: CKMB 2.3 ng/mL (0-6.6)
[2022-04-19] MEDS ORDERED: Furosemide 20 MG/2 ML VIAL SLOW IVP SCH (21:30)
[2022-04-19] MEDS ORDERED: HYDROcodone/Acetaminophen 5/325 mg Tablet PER TUBE PRN (21:53)
[2022-04-19] MEDS ORDERED: Melatonin 3 MG TAB PER TUBE PRN (22:00)
[2022-04-19] MEDS: Fentanyl 100 MCG/2 ML VIAL SLOW IVP PRN (23:41)
[2022-04-19] MEDS: Nicotine 14 MG PATCH TD SCH (23:49)
[2022-04-19 23:59] LABS: Troponin I 0.019 ng/mL (< 0.028)
[2022-04-20] MEDS ORDERED: Fentanyl 100 MCG/2 ML VIAL SLOW IVP SCH (01:00)
[2022-04-20] MEDS: Fentanyl 100 MCG/2 ML VIAL SLOW IVP PRN ×2 (03:43→10:40)
[2022-04-20] MEDS: Lactated Ringer's 1,000 ML IV SCH ×2 (03:43→15:13)
[2022-04-20 05:18] LABS: ALT (SGPT) 20 U/L (8-55); AST (SGOT) 25 U/L (5-34); Albumin 3.1 g/dL (3.4-4.8); Alkaline Phosphatase 141 U/L (40-110); Anion Gap 16 mmol/L (10-20); BUN (Urea Nitrogen) 25 mg/dL (8.4-25.7); Bilirubin, Total 0.8 mg/dL (0.2-1.2); Calc. Creatinine Clearance 99 mL/min (70-130); Calcium 8.5 mg/dL (7.8-10.44); Carbon Dioxide 28 mmol/L (23-31); Chloride 98 mmol/L (98-107); Estimated GFR 103; Globulin 2.7 g/dL (2.4-3.5); Glucose 111 mg/dL (80-115); Protein, Total 5.8 g/dL (5.8-8.1); Sodium 139 mmol/L (136-145)
[2022-04-20 05:20] LABS: Troponin I 0.012 ng/mL (< 0.028)
[2022-04-20 06:48] LABS: Hemoglobin 8.6 g/dL (14.0-18.0); Mean Corpuscular HGB CONC 33.5 g/dL (32.0-36.0); Mean Corpuscular Hemoglobin 31.6 pg (27.0-31.0); Mean Corpuscular Volume 94.4 fL (78.0-98.0); Mean Platelet Volume 10.7 fL (7.4-10.4); Platelet Count 21 thou/uL (130-400); White Blood Cell (WBC) Count 6.7 thou/uL (4.8-10.8)
[2022-04-20 06:52] LABS: MDiff Complete? YES
[2022-04-20 06:53] LABS: Band 47 % (5-11); Lymphocytes 11 % (21-51); Monocytes 7 % (0-10); Neutrophil 35 % (42-75); Platelet Morphology Comment Appears Decreased
[2022-04-20] MEDS ORDERED: Potassium Chloride 40 MEQ in Premix Bag 1 BAG IVPB SCH (08:00)
[2022-04-20] MEDS ORDERED: Acetaminophen 500 MG TAB PER TUBE SCH (09:00)
[2022-04-20] MEDS ORDERED: Sodium Chloride 1 GM TAB PER TUBE SCH (09:00)
[2022-04-20] MEDS ORDERED: Gabapentin 300 MG CAP PER TUBE SCH (09:00)
[2022-04-20] MEDS: Pantoprazole 40 MG VIAL IVP SCH (09:17)
[2022-04-20] MEDS: Potassium Chloride 20 MEQ in Premix Bag 1 BAG IVPB SCH ×2 (10:02→13:47)
[2022-04-20] MEDS ORDERED: HYDROcodone/Acetaminophen 5/325 mg Tablet PER TUBE PRN (10:44)
[2022-04-20] MEDS ORDERED: Naloxone HCl 0.4 mg/ml Vial IV PRN (12:22)
[2022-04-20] MEDS ORDERED: Potassium Chloride 20 MEQ in Premix Bag 1 BAG IVPB SCH (15:00)
[2022-04-20] MEDS ORDERED: Potassium Chloride 20 MEQ in Lactated Ringer's 1,000 ML IV SCH ×2 (15:15→16:00)
[2022-04-20] MEDS ORDERED: Potassium Chloride 20 MEQ TAB PER TUBE SCH (16:00)
[2022-04-20] MEDS ORDERED: Potassium Chloride 40 MEQ in Lactated Ringer's 1,000 ML IV SCH (17:03)
[2022-04-20 18:27] LABS: Anion Gap 14 mmol/L (10-20); BUN (Urea Nitrogen) 21 mg/dL (8.4-25.7); Calc. Creatinine Clearance 98 mL/min (70-130); Calcium 8.5 mg/dL (7.8-10.44); Carbon Dioxide 32 mmol/L (23-31); Chloride 101 mmol/L (98-107); Estimated GFR 102; Glucose 103 mg/dL (80-115); Sodium 144 mmol/L (136-145)
[2022-04-20] MEDS: BIOTENE MOUTH SPRAY 44.3 ML MM SCH ×2 (19:17→22:15)
[2022-04-20] MEDS ORDERED: CEFAZOLIN 2 GM VIAL ONE (19:55)
[2022-04-20] MEDS: CEFAZOLIN 2 GM in Sodium Chloride 0.9% 100 ML IVPB SCH (20:03)
[2022-04-20] MEDS: Nicotine 14 MG PATCH TD SCH (22:19)
[2022-04-21] MEDS: BIOTENE MOUTH SPRAY 44.3 ML MM SCH ×5 (00:26→20:13)
[2022-04-21] MEDS: Fentanyl 100 MCG/2 ML VIAL SLOW IVP PRN ×5 (02:09→21:31)
[2022-04-21] MEDS ORDERED: CEFAZOLIN 2 GM VIAL ONE (03:48)
[2022-04-21] MEDS: CEFAZOLIN 2 GM in Sodium Chloride 0.9% 100 ML IVPB SCH ×3 (04:15→20:14)
[2022-04-21 05:51] LABS: ALT (SGPT) 25 U/L (8-55); AST (SGOT) 35 U/L (5-34); Albumin 3.2 g/dL (3.4-4.8); Alkaline Phosphatase 162 U/L (40-110); Anion Gap 14 mmol/L (10-20); BUN (Urea Nitrogen) 16 mg/dL (8.4-25.7); Bilirubin, Total 0.8 mg/dL (0.2-1.2); Calc. Creatinine Clearance 93 mL/min (70-130); Calcium 8.3 mg/dL (7.8-10.44); Carbon Dioxide 30 mmol/L (23-31); Chloride 101 mmol/L (98-107); Estimated GFR 101; Globulin 2.8 g/dL (2.4-3.5); Glucose 93 mg/dL (80-115); Magnesium 1.6 mg/dL (1.6-2.6); Sodium 142 mmol/L (136-145)
[2022-04-21 05:54] LABS: Potassium 2.9 mmol/L (3.5-5.1)
[2022-04-21 05:55] LABS: Phosphorus 1.9 mg/dL (2.3-4.7)
[2022-04-21 06:20] LABS: Band 40 % (5-11); Dohle Bodies SLIGHT; Hemoglobin 8.8 g/dL (14.0-18.0); MDiff Complete? YES; Mean Corpuscular HGB CONC 33.4 g/dL (32.0-36.0); Mean Platelet Volume 8.1 fL (7.4-10.4); Metamyelocyte 1 % (0-0); Monocytes 7 % (0-10); Neutrophil 52 % (42-75); Platelet Count 58 thou/uL (130-400); Platelet Morphology Comment Appears Decreased; RBC Distribution Width 14.4 % (11.5-14.5); Red Blood Cell (RBC) Count 2.74 mill/uL (4.70-6.10); White Blood Cell (WBC) Count 16.6 thou/uL (4.8-10.8)
[2022-04-21] MEDS ORDERED: Potassium Phosphate 9 MMOL in Sodium Chloride 0.9% 100 ML IVPB SCH ×3 (08:00→22:15)
[2022-04-21] MEDS: Thiamine 100 MG TAB PER TUBE SCH (08:16)
[2022-04-21] MEDS: Potassium Chloride 40 MEQ in Lactated Ringer's 1,000 ML IV SCH ×3 (08:41→20:16)
[2022-04-21] MEDS: Potassium Chloride 20 MEQ in Premix Bag 1 BAG IVPB SCH ×2 (09:27→12:52)
[2022-04-21] MEDS: Pantoprazole 40 MG VIAL IVP SCH (09:29)
[2022-04-21 15:39] LABS: Anion Gap 17 mmol/L (10-20); BUN (Urea Nitrogen) 14 mg/dL (8.4-25.7); Calc. Creatinine Clearance 100 mL/min (70-130); Calcium 8.1 mg/dL (7.8-10.44); Carbon Dioxide 25 mmol/L (23-31); Chloride 104 mmol/L (98-107); Estimated GFR 103; Glucose 91 mg/dL (80-115); Magnesium 1.8 mg/dL (1.6-2.6); Potassium 4.2 mmol/L (3.5-5.1); Sodium 142 mmol/L (136-145)
[2022-04-21 16:02] LABS: Campy jejuni + coli by PCR Negative (Negative); STEC Shiga Toxin 1+2 Negative (Negative); Salmonella spp. by PCR Negative (Negative); Shigella spp + EIEC by PCR Negative (Negative)
[2022-04-21 16:14] LABS: Phosphorus 1.6 mg/dL (2.3-4.7)
[2022-04-21 21:24] LABS: Phosphorus 1.8 mg/dL (2.3-4.7)
[2022-04-21] MEDS: Nicotine 14 MG PATCH TD SCH (23:25)
[2022-04-22] MEDS: BIOTENE MOUTH SPRAY 44.3 ML MM SCH ×6 (01:02→21:15)
[2022-04-22] MEDS: Fentanyl 100 MCG/2 ML VIAL SLOW IVP PRN ×6 (01:28→22:07)
[2022-04-22] MEDS: CEFAZOLIN 2 GM in Sodium Chloride 0.9% 100 ML IVPB SCH ×3 (04:05→21:38)
[2022-04-22 05:55] LABS: Band 62 % (5-11); Hypochromia SLIGHT = 6-15 cells (100X) (0-5/hpf); MDiff Complete? YES; Mean Corpuscular HGB CONC 32.6 g/dL (32.0-36.0); Mean Corpuscular Hemoglobin 31.5 pg (27.0-31.0); Mean Corpuscular Volume 96.5 fL (78.0-98.0); Mean Platelet Volume 7.7 fL (7.4-10.4); Monocytes 1 % (0-10); Neutrophil 37 % (42-75); Platelet Count 43 thou/uL (130-400); Platelet Morphology Comment Appears Decreased; RBC Distribution Width 14.3 % (11.5-14.5); Red Blood Cell (RBC) Count 2.53 mill/uL (4.70-6.10); White Blood Cell (WBC) Count 14.1 thou/uL (4.8-10.8)
[2022-04-22 05:56] LABS: ALT (SGPT) 14 U/L (8-55); AST (SGOT) 28 U/L (5-34); Albumin 3.2 g/dL (3.4-4.8); Alkaline Phosphatase 160 U/L (40-110); Anion Gap 14 mmol/L (10-20); BUN (Urea Nitrogen) 13 mg/dL (8.4-25.7); Bilirubin, Total 0.7 mg/dL (0.2-1.2); Calc. Creatinine Clearance 94 mL/min (70-130); Calcium 7.8 mg/dL (7.8-10.44); Carbon Dioxide 28 mmol/L (23-31); Chloride 102 mmol/L (98-107); Estimated GFR 102; Globulin 2.7 g/dL (2.4-3.5); Glucose 89 mg/dL (80-115); Potassium 4.3 mmol/L (3.5-5.1); Protein, Total 5.9 g/dL (5.8-8.1); Sodium 140 mmol/L (136-145)
[2022-04-22 05:58] LABS: Phosphorus 2.4 mg/dL (2.3-4.7)
[2022-04-22] MEDS ORDERED: Potassium Phosphate 9 MMOL in Sodium Chloride 0.9% 100 ML IVPB SCH (06:00)
[2022-04-22 06:38] LABS: Magnesium 1.6 mg/dL (1.6-2.6); Phosphorus 2.4 mg/dL (2.3-4.7)
[2022-04-22] MEDS: Thiamine 100 MG TAB PER TUBE SCH ×2 (09:16→09:27)
[2022-04-22] MEDS: Pantoprazole 40 MG VIAL IVP SCH (09:16)
[2022-04-22] MEDS: Potassium Chloride 40 MEQ in Lactated Ringer's 1,000 ML IV SCH (10:32)
[2022-04-22] MEDS: TRACE ELEMENT IV SCH (13:46)
[2022-04-22] MEDS: MULTIVITAMINS IV SCH (13:46)
[2022-04-22] MEDS: CLINIMIX E IV SCH (13:46)
[2022-04-22] MEDS: Nicotine 14 MG PATCH TD SCH (21:43)
[2022-04-23] MEDS: Fentanyl 100 MCG/2 ML VIAL SLOW IVP PRN ×6 (02:23→22:43)
[2022-04-23] MEDS: CEFAZOLIN 2 GM in Sodium Chloride 0.9% 100 ML IVPB SCH ×3 (04:17→21:11)
[2022-04-23 05:53] LABS: ALT (SGPT) 7 U/L (8-55); AST (SGOT) 20 U/L (5-34); Albumin 2.9 g/dL (3.4-4.8); Alkaline Phosphatase 135 U/L (40-110); Anion Gap 9 mmol/L (10-20); BUN (Urea Nitrogen) 15 mg/dL (8.4-25.7); Bilirubin, Total 0.6 mg/dL (0.2-1.2); Calc. Creatinine Clearance 105 mL/min (70-130); Calcium 7.8 mg/dL (7.8-10.44); Carbon Dioxide 32 mmol/L (23-31); Chloride 101 mmol/L (98-107); Estimated GFR 104; Globulin 2.6 g/dL (2.4-3.5); Glucose 160 mg/dL (80-115); Potassium 4.3 mmol/L (3.5-5.1); Protein, Total 5.5 g/dL (5.8-8.1); Sodium 138 mmol/L (136-145)
[2022-04-23 05:55] LABS: Magnesium 1.6 mg/dL (1.6-2.6); Phosphorus 1.8 mg/dL (2.3-4.7)
[2022-04-23] MEDS ORDERED: Sodium Phosphate 15 MMOL in Sodium Chloride 0.9% 250 ML 250 ML IVPB SCH (06:15)
[2022-04-23 06:57] LABS: Band 25 % (5-11); Hemoglobin 7.3 g/dL (14.0-18.0); Lymphocytes 8 % (21-51); MDiff Complete? YES; Mean Corpuscular HGB CONC 33.4 g/dL (32.0-36.0); Mean Corpuscular Hemoglobin 32.5 pg (27.0-31.0); Mean Corpuscular Volume 97.5 fL (78.0-98.0); Mean Platelet Volume 8.7 fL (7.4-10.4); Monocytes 4 % (0-10); Neutrophil 63 % (42-75); Platelet Count 32 thou/uL (130-400); Platelet Morphology Comment Appears Decreased; RBC Distribution Width 14.4 % (11.5-14.5); Red Blood Cell (RBC) Count 2.24 mill/uL (4.70-6.10); White Blood Cell (WBC) Count 9.6 thou/uL (4.8-10.8)
[2022-04-23] MEDS: Pantoprazole 40 MG VIAL IVP SCH (08:40)
[2022-04-23] MEDS: CLINIMIX E IV SCH (14:05)
[2022-04-23] MEDS: MULTIVITAMINS IV SCH (14:05)
[2022-04-23] MEDS: TRACE ELEMENT IV SCH (14:05)
[2022-04-23 14:16] LABS: Magnesium 1.8 mg/dL (1.6-2.6); Phosphorus 2.5 mg/dL (2.3-4.7)
[2022-04-23 15:07] LABS: Hemoglobin 8.9 g/dL (14.0-18.0); Platelet Count 40 thou/uL (130-400)
[2022-04-23] MEDS: BIOTENE MOUTH SPRAY 44.3 ML MM SCH ×5 (15:15→22:47)
[2022-04-23] MEDS: Nicotine 14 MG PATCH TD SCH (21:20)
[2022-04-24] MEDS: Fentanyl 100 MCG/2 ML VIAL SLOW IVP PRN ×5 (02:47→20:52)
[2022-04-24] MEDS: CEFAZOLIN 2 GM in Sodium Chloride 0.9% 100 ML IVPB SCH ×4 (03:16→20:55)
[2022-04-24 06:35] LABS: Hemoglobin 7.3 g/dL (14.0-18.0); Mean Corpuscular HGB CONC 32.7 g/dL (32.0-36.0); Mean Corpuscular Hemoglobin 32.4 pg (27.0-31.0); Mean Corpuscular Volume 98.9 fL (78.0-98.0); Mean Platelet Volume 9.3 fL (7.4-10.4); Platelet Count 28 thou/uL (130-400); RBC Distribution Width 14.4 % (11.5-14.5); Red Blood Cell (RBC) Count 2.25 mill/uL (4.70-6.10); White Blood Cell (WBC) Count 9.6 thou/uL (4.8-10.8)
[2022-04-24 06:37] LABS: ALT (SGPT) 10 U/L (8-55); AST (SGOT) 24 U/L (5-34); Albumin 2.8 g/dL (3.4-4.8); Alkaline Phosphatase 150 U/L (40-110); Anion Gap 10 mmol/L (10-20); BUN (Urea Nitrogen) 19 mg/dL (8.4-25.7); Bilirubin, Total 0.5 mg/dL (0.2-1.2); Calc. Creatinine Clearance 106 mL/min (70-130); Calcium 7.6 mg/dL (7.8-10.44); Carbon Dioxide 30 mmol/L (23-31); Chloride 100 mmol/L (98-107); Estimated GFR 104; Globulin 2.6 g/dL (2.4-3.5); Glucose 141 mg/dL (80-115); Potassium 4.4 mmol/L (3.5-5.1); Protein, Total 5.4 g/dL (5.8-8.1); Sodium 136 mmol/L (136-145)
[2022-04-24 06:58] LABS: Band 15 % (5-11); Hypochromia SLIGHT = 6-15 cells (100X) (0-5/hpf); Lymphocytes 6 % (21-51); MDiff Complete? YES; Monocytes 19 % (0-10); Neutrophil 60 % (42-75); Platelet Morphology Comment Appears Decreased
[2022-04-24] MEDS ORDERED: Magnesium Sulfate 2 GM in Sodium Chloride 0.9% 100 ML IVPB SCH (08:45)
[2022-04-24] MEDS ORDERED: Magnesium 2 GM/50 ML(in water) 2 GM in Premix Bag 1 BAG IVPB SCH (09:15)
[2022-04-24] MEDS: BIOTENE MOUTH SPRAY 44.3 ML MM SCH ×5 (09:34→23:35)
[2022-04-24] MEDS: Pantoprazole 40 MG VIAL IVP SCH (09:36)
[2022-04-24] MEDS ORDERED: [UNRECOGNIZED DRUG - OTHER] IV SCH (14:00)
[2022-04-24] MEDS ORDERED: TRACE ELEMENT IV SCH (14:00)
[2022-04-24] MEDS ORDERED: MULTIVITAMINS IV SCH (14:00)
[2022-04-24 14:11] LABS: Platelet Count 25 thou/uL (130-400)
[2022-04-24] MEDS: Nicotine 14 MG PATCH TD SCH (20:37)
[2022-04-25] MEDS: Fentanyl 100 MCG/2 ML VIAL SLOW IVP PRN ×5 (00:52→21:01)
[2022-04-25 04:04] LABS: ALT (SGPT) 16 U/L (8-55); AST (SGOT) 36 U/L (5-34); Albumin 2.9 g/dL (3.4-4.8); Alkaline Phosphatase 176 U/L (40-110); Anion Gap 13 mmol/L (10-20); BUN (Urea Nitrogen) 20 mg/dL (8.4-25.7); Bilirubin, Total 0.9 mg/dL (0.2-1.2); Calc. Creatinine Clearance 109 mL/min (70-130); Calcium 7.7 mg/dL (7.8-10.44); Carbon Dioxide 28 mmol/L (23-31); Chloride 98 mmol/L (98-107); Estimated GFR 105; Globulin 2.6 g/dL (2.4-3.5); Glucose 134 mg/dL (80-115); Potassium 4.5 mmol/L (3.5-5.1); Protein, Total 5.5 g/dL (5.8-8.1); Sodium 134 mmol/L (136-145)
[2022-04-25 04:33] LABS: Hemoglobin 8.3 g/dL (14.0-18.0); Mean Corpuscular HGB CONC 33.9 g/dL (32.0-36.0); Mean Corpuscular Volume 97.4 fL (78.0-98.0); Mean Platelet Volume 9.6 fL (7.4-10.4); Platelet Count 28 thou/uL (130-400); RBC Distribution Width 14.1 % (11.5-14.5); Red Blood Cell (RBC) Count 2.53 mill/uL (4.70-6.10); White Blood Cell (WBC) Count 8.1 thou/uL (4.8-10.8)
[2022-04-25 04:36] LABS: Band 16 % (5-11); Lymphocytes 2 % (21-51); MDiff Complete? YES; Manual Diff?? YES; Metamyelocyte 1 % (0-0); Monocytes 10 % (0-10); Neutrophil 71 % (42-75)
[2022-04-25 04:37] LABS: Platelet Morphology Comment Appears Decreased; RBC Morphology Normal
[2022-04-25] MEDS: CEFAZOLIN 2 GM in Sodium Chloride 0.9% 100 ML IVPB SCH ×3 (04:53→21:09)
[2022-04-25 05:34] LABS: Hemoglobin 8.3 g/dL (14.0-18.0)
[2022-04-25 05:36] LABS: Platelet Count 29 thou/uL (130-400)
[2022-04-25 07:00] LABS: Phosphorus 2.3 mg/dL (2.3-4.7)
[2022-04-25 07:02] LABS: Magnesium 1.7 mg/dL (1.6-2.6)
[2022-04-25] MEDS ORDERED: Magnesium Sulfate 2 GM in Sodium Chloride 0.9% 100 ML IVPB SCH (08:15)
[2022-04-25] MEDS ORDERED: Magnesium 2 GM/50 ML(in water) 2 GM in Premix Bag 1 BAG IVPB SCH (09:00)
[2022-04-25] MEDS: Pantoprazole 40 MG VIAL IVP SCH (09:51)
[2022-04-25] MEDS: BIOTENE MOUTH SPRAY 44.3 ML MM SCH ×4 (09:57→20:21)
[2022-04-25] MEDS ORDERED: [UNRECOGNIZED DRUG - REMARK] IVPB PRN (11:31)
[2022-04-25] MEDS ORDERED: SODIUM PHOSPHATE IV SCH (14:00)
[2022-04-25] MEDS ORDERED: [UNRECOGNIZED DRUG - OTHER] IV SCH (14:00)
[2022-04-25] MEDS ORDERED: TRACE ELEMENT IV SCH (14:00)
[2022-04-25] MEDS ORDERED: MULTIVITAMINS IV SCH (14:00)
[2022-04-25] MEDS: Nicotine 14 MG PATCH TD SCH (21:55)
[2022-04-26] MEDS: BIOTENE MOUTH SPRAY 44.3 ML MM SCH ×6 (00:36→23:10)
[2022-04-26] MEDS: Fentanyl 100 MCG/2 ML VIAL SLOW IVP PRN ×6 (02:29→22:26)
[2022-04-26] MEDS: CEFAZOLIN 2 GM in Sodium Chloride 0.9% 100 ML IVPB SCH ×3 (05:45→20:57)
[2022-04-26 07:46] LABS: Hemoglobin 8.6 g/dL (14.0-18.0); Mean Corpuscular Hemoglobin 31.2 pg (27.0-31.0); Mean Corpuscular Volume 97.2 fL (78.0-98.0); Mean Platelet Volume 9.5 fL (7.4-10.4); Platelet Count 32 thou/uL (130-400); Red Blood Cell (RBC) Count 2.77 mill/uL (4.70-6.10); White Blood Cell (WBC) Count 7.5 thou/uL (4.8-10.8)
[2022-04-26 08:05] LABS: ALT (SGPT) 27 U/L (8-55); AST (SGOT) 53 U/L (5-34); Alkaline Phosphatase 261 U/L (40-110); Anion Gap 15 mmol/L (10-20); BUN (Urea Nitrogen) 22 mg/dL (8.4-25.7); Bilirubin, Total 0.8 mg/dL (0.2-1.2); Calc. Creatinine Clearance 103 mL/min (70-130); Calcium 8.2 mg/dL (7.8-10.44); Carbon Dioxide 24 mmol/L (23-31); Chloride 98 mmol/L (98-107); Estimated GFR 105; Globulin 2.8 g/dL (2.4-3.5); Glucose 128 mg/dL (80-115); Potassium 4.8 mmol/L (3.5-5.1); Protein, Total 5.8 g/dL (5.8-8.1); Sodium 132 mmol/L (136-145)
[2022-04-26 08:54] LABS: Band 20 % (5-11); Lymphocytes 11 % (21-51); MDiff Complete? YES; Monocytes 7 % (0-10); Neutrophil 62 % (42-75); Platelet Morphology Comment Appears Decreased; Polychromasia SLIGHT = 2-3 cells (100X) (0-2/hpf)
[2022-04-26 09:05] LABS: Magnesium 1.7 mg/dL (1.6-2.6); Phosphorus 2.9 mg/dL (2.3-4.7)
[2022-04-26] MEDS: Pantoprazole 40 MG VIAL IVP SCH (09:06)
[2022-04-26] MEDS: Lisinopril 10 MG TAB PO SCH (09:12)
[2022-04-26] MEDS ORDERED: [UNRECOGNIZED DRUG - OTHER] IV SCH ×2 (14:00)
[2022-04-26] MEDS ORDERED: TRACE ELEMENT IV SCH ×2 (14:00)
[2022-04-26] MEDS ORDERED: SODIUM PHOSPHATE IV SCH ×2 (14:00)
[2022-04-26] MEDS ORDERED: MULTIVITAMINS IV SCH ×2 (14:00)
[2022-04-26] MEDS: Nicotine 14 MG PATCH TD SCH (20:58)
[2022-04-27] MEDS: Acetaminophen 650 MG Suppository PR PRN (01:06)
[2022-04-27] MEDS: Fentanyl 100 MCG/2 ML VIAL SLOW IVP PRN ×6 (02:33→23:01)
[2022-04-27] MEDS: CEFAZOLIN 2 GM in Sodium Chloride 0.9% 100 ML IVPB SCH ×3 (05:50→20:21)
[2022-04-27 06:54] LABS: #Lymphocytes 0.3 thou/uL (1.20-3.40); #Monocytes 0.8 thou/uL (0.11-0.59); #Neutrophils 5.6 thou/uL (1.40-6.50); %Eosinophils 0.1 % (0.0-10.0); %Lymphocytes 5.1 % (21.0-51.0); %Neutrophils 82.8 % (42.0-75.0); Hemoglobin 7.9 g/dL (14.0-18.0); Mean Corpuscular HGB CONC 32.8 g/dL (32.0-36.0); Mean Corpuscular Volume 97.6 fL (78.0-98.0); Mean Platelet Volume 8.9 fL (7.4-10.4); Platelet Count 32 thou/uL (130-400); RBC Distribution Width 14.1 % (11.5-14.5); Red Blood Cell (RBC) Count 2.48 mill/uL (4.70-6.10); White Blood Cell (WBC) Count 6.7 thou/uL (4.8-10.8)
[2022-04-27 07:07] LABS: ALT (SGPT) 58 U/L (8-55); AST (SGOT) 102 U/L (5-34); Albumin 2.9 g/dL (3.4-4.8); Alkaline Phosphatase 308 U/L (40-110); Anion Gap 13 mmol/L (10-20); BUN (Urea Nitrogen) 28 mg/dL (8.4-25.7); Bilirubin, Total 0.6 mg/dL (0.2-1.2); Calc. Creatinine Clearance 94 mL/min (70-130); Calcium 8.3 mg/dL (7.8-10.44); Carbon Dioxide 26 mmol/L (23-31); Chloride 98 mmol/L (98-107); Estimated GFR 102; Globulin 2.9 g/dL (2.4-3.5); Glucose 120 mg/dL (80-115); Magnesium 1.7 mg/dL (1.6-2.6); Potassium 4.6 mmol/L (3.5-5.1); Protein, Total 5.8 g/dL (5.8-8.1); Sodium 132 mmol/L (136-145)
[2022-04-27 07:17] LABS: Phosphorus 3.8 mg/dL (2.3-4.7)
[2022-04-27] MEDS: Lisinopril 10 MG TAB PO SCH (08:37)
[2022-04-27] MEDS: Pantoprazole 40 MG VIAL IVP SCH (08:37)
[2022-04-27] MEDS: BIOTENE MOUTH SPRAY 44.3 ML MM SCH ×5 (08:37→22:24)
[2022-04-27] MEDS ORDERED: [UNRECOGNIZED DRUG - OTHER] IV SCH ×2 (14:00)
[2022-04-27] MEDS ORDERED: TRACE ELEMENT IV SCH ×2 (14:00)
[2022-04-27] MEDS ORDERED: MULTIVITAMINS IV SCH ×2 (14:00)
[2022-04-27] MEDS ORDERED: SODIUM PHOSPHATE IV SCH ×2 (14:00)
[2022-04-27] MEDS: Nicotine 14 MG PATCH TD SCH (20:41)
[2022-04-28] MEDS: Fentanyl 100 MCG/2 ML VIAL SLOW IVP PRN ×6 (03:16→23:15)
[2022-04-28] MEDS: CEFAZOLIN 2 GM in Sodium Chloride 0.9% 100 ML IVPB SCH ×2 (05:34→13:42)
[2022-04-28 06:20] LABS: ALT (SGPT) 44 U/L (8-55); AST (SGOT) 66 U/L (5-34); Albumin 2.7 g/dL (3.4-4.8); Alkaline Phosphatase 242 U/L (40-110); Anion Gap 13 mmol/L (10-20); BUN (Urea Nitrogen) 35 mg/dL (8.4-25.7); Bilirubin, Total 0.4 mg/dL (0.2-1.2); Calc. Creatinine Clearance 91 mL/min (70-130); Calcium 8.1 mg/dL (7.8-10.44); Carbon Dioxide 24 mmol/L (23-31); Chloride 101 mmol/L (98-107); Estimated GFR 101; Globulin 2.8 g/dL (2.4-3.5); Glucose 120 mg/dL (80-115); Phosphorus 3.6 mg/dL (2.3-4.7); Potassium 5.1 mmol/L (3.5-5.1); Protein, Total 5.5 g/dL (5.8-8.1); Sodium 133 mmol/L (136-145)
[2022-04-28 06:32] LABS: Band 12 % (5-11); Hemoglobin 7.2 g/dL (14.0-18.0); Lymphocytes 6 % (21-51); MDiff Complete? YES; Mean Corpuscular HGB CONC 32.6 g/dL (32.0-36.0); Mean Corpuscular Volume 98.1 fL (78.0-98.0); Mean Platelet Volume 9.1 fL (7.4-10.4); Monocytes 14 % (0-10); Neutrophil 68 % (42-75); Platelet Count 39 thou/uL (130-400); Platelet Morphology Comment Appears Decreased; RBC Distribution Width 13.9 % (11.5-14.5); Red Blood Cell (RBC) Count 2.24 mill/uL (4.70-6.10); White Blood Cell (WBC) Count 5.6 thou/uL (4.8-10.8)
[2022-04-28] MEDS: BIOTENE MOUTH SPRAY 44.3 ML MM SCH ×5 (08:25→23:14)
[2022-04-28] MEDS: Acetaminophen 650 MG Suppository PR PRN ×2 (08:31→16:57)
[2022-04-28] MEDS: Pantoprazole 40 MG VIAL IVP SCH (08:31)
[2022-04-28] MEDS ORDERED: Pancrelipase DR 12,000 1 CAP FS PRN (13:45)
[2022-04-28] MEDS ORDERED: Sodium Bicarbonate Tab 325 MG TAB PER TUBE PRN (13:45)
[2022-04-28] MEDS ORDERED: MULTIVITAMINS IV SCH ×2 (14:00)
[2022-04-28] MEDS ORDERED: SODIUM PHOSPHATE IV SCH ×2 (14:00)
[2022-04-28] MEDS ORDERED: TRACE ELEMENT IV SCH ×2 (14:00)
[2022-04-28] MEDS ORDERED: [UNRECOGNIZED DRUG - OTHER] IV SCH ×2 (14:00)
[2022-04-28] MEDS: Nicotine 14 MG PATCH TD SCH (21:10)
[2022-04-29] MEDS: Fentanyl 100 MCG/2 ML VIAL SLOW IVP PRN ×2 (03:14→07:28)
[2022-04-29 05:41] LABS: #Lymphocytes 0.1 thou/uL (1.20-3.40); #Monocytes 0.5 thou/uL (0.11-0.59); #Neutrophils 3.7 thou/uL (1.40-6.50); %Basophils 0.2 % (0.0-1.0); %Eosinophils 0.2 % (0.0-10.0); %Monocytes 11.3 % (0.0-10.0); %Neutrophils 86.3 % (42.0-75.0); Hemoglobin 7.8 g/dL (14.0-18.0); Mean Platelet Volume 8.5 fL (7.4-10.4); Platelet Count 42 thou/uL (130-400); Red Blood Cell (RBC) Count 2.45 mill/uL (4.70-6.10); White Blood Cell (WBC) Count 4.3 thou/uL (4.8-10.8)
[2022-04-29 05:49] LABS: Phosphorus 3.4 mg/dL (2.3-4.7)
[2022-04-29 05:51] LABS: ALT (SGPT) 42 U/L (8-55); AST (SGOT) 72 U/L (5-34); Albumin 3.1 g/dL (3.4-4.8); Alkaline Phosphatase 289 U/L (40-110); Anion Gap 16 mmol/L (10-20); BUN (Urea Nitrogen) 36 mg/dL (8.4-25.7); Bilirubin, Total 0.5 mg/dL (0.2-1.2); Calc. Creatinine Clearance 77 mL/min (70-130); Calcium 8.5 mg/dL (7.8-10.44); Carbon Dioxide 23 mmol/L (23-31); Chloride 99 mmol/L (98-107); Estimated GFR 98; Globulin 3.2 g/dL (2.4-3.5); Glucose 173 mg/dL (80-115); Magnesium 2.2 mg/dL (1.6-2.6); Potassium 5.6 mmol/L (3.5-5.1); Protein, Total 6.3 g/dL (5.8-8.1); Sodium 132 mmol/L (136-145)
[2022-04-29] MEDS: Pantoprazole 40 MG VIAL IVP SCH (09:20)
[2022-04-29] MEDS: Thiamine HCl 200 MG/2 ML VIAL SLOW IVP SCH (09:20)
[2022-04-29] MEDS ORDERED: MULTIVITAMINS IV SCH (14:00)
[2022-04-29] MEDS ORDERED: TRACE ELEMENT IV SCH (14:00)
[2022-04-29] MEDS ORDERED: [UNRECOGNIZED DRUG - OTHER] IV SCH (14:00)
[2022-04-29] MEDS ORDERED: SODIUM PHOSPHATE IV SCH (14:00)
[2022-04-29] MEDS: Acetaminophen 650 MG Suppository PR PRN (21:11)
[2022-04-29] MEDS ORDERED: Sodium Chloride 0.65% Nasal 44 ML BOT EA NARE PRN (21:22)
[2022-04-29] MEDS: Nicotine 14 MG PATCH TD SCH (22:28)
[2022-04-30 05:46] LABS: #Lymphocytes 0.1 thou/uL (1.20-3.40); #Monocytes 0.3 thou/uL (0.11-0.59); #Neutrophils 2.2 thou/uL (1.40-6.50); %Basophils 0.1 % (0.0-1.0); %Eosinophils 0.2 % (0.0-10.0); %Monocytes 11.1 % (0.0-10.0); %Neutrophils 84.6 % (42.0-75.0); Hemoglobin 7.2 g/dL (14.0-18.0); Mean Corpuscular HGB CONC 33.1 g/dL (32.0-36.0); Mean Corpuscular Hemoglobin 32.1 pg (27.0-31.0); Mean Corpuscular Volume 96.8 fL (78.0-98.0); Mean Platelet Volume 8.5 fL (7.4-10.4); Platelet Count 44 thou/uL (130-400); RBC Distribution Width 14.6 % (11.5-14.5); Red Blood Cell (RBC) Count 2.24 mill/uL (4.70-6.10); White Blood Cell (WBC) Count 2.6 thou/uL (4.8-10.8)
[2022-04-30 06:06] LABS: ALT (SGPT) 61 U/L (8-55); AST (SGOT) 88 U/L (5-34); Albumin 2.9 g/dL (3.4-4.8); Alkaline Phosphatase 254 U/L (40-110); Anion Gap 15 mmol/L (10-20); BUN (Urea Nitrogen) 42 mg/dL (8.4-25.7); Bilirubin, Total 0.4 mg/dL (0.2-1.2); Calc. Creatinine Clearance 80 mL/min (70-130); Carbon Dioxide 24 mmol/L (23-31); Chloride 98 mmol/L (98-107); Estimated GFR 98; Globulin 3.1 g/dL (2.4-3.5); Glucose 107 mg/dL (80-115); Magnesium 1.9 mg/dL (1.6-2.6); Potassium 4.8 mmol/L (3.5-5.1); Sodium 132 mmol/L (136-145)
[2022-04-30 06:25] LABS: Phosphorus 2.6 mg/dL (2.3-4.7)
[2022-04-30] MEDS: Acetaminophen 650 MG Suppository PR PRN ×3 (08:15→23:13)
[2022-04-30] MEDS: Pantoprazole 40 MG VIAL IVP SCH (08:18)
[2022-04-30] MEDS: Thiamine HCl 200 MG/2 ML VIAL SLOW IVP SCH (08:18)
[2022-04-30] MEDS ORDERED: Bisacodyl 10 MG SUPP PR PRN (08:54)
[2022-04-30] MEDS ORDERED: Naloxone HCl 0.4 mg/ml Vial IV PRN (08:54)
[2022-04-30] MEDS: Fentanyl 100 MCG/2 ML VIAL SLOW IVP PRN (10:05)
[2022-04-30] MEDS: Nicotine 14 MG PATCH TD SCH (21:39)
[2022-05-01] MEDS: Acetaminophen 650 MG Suppository PR PRN (04:24)
[2022-05-01 04:49] LABS: #Lymphocytes 0.1 thou/uL (1.20-3.40); #Monocytes 0.2 thou/uL (0.11-0.59); #Neutrophils 2.4 thou/uL (1.40-6.50); %Eosinophils 0.2 % (0.0-10.0); %Lymphocytes 2.6 % (21.0-51.0); %Neutrophils 89.2 % (42.0-75.0); Hemoglobin 9.9 g/dL (14.0-18.0); Mean Corpuscular HGB CONC 33.4 g/dL (32.0-36.0); Mean Corpuscular Hemoglobin 32.3 pg (27.0-31.0); Mean Corpuscular Volume 96.7 fL (78.0-98.0); Mean Platelet Volume 8.6 fL (7.4-10.4); Platelet Count 44 thou/uL (130-400); RBC Distribution Width 14.9 % (11.5-14.5); Red Blood Cell (RBC) Count 3.05 mill/uL (4.70-6.10); White Blood Cell (WBC) Count 2.7 thou/uL (4.8-10.8)
[2022-05-01] MEDS ORDERED: Lactated Ringer's 1,000 ML IV SCH (05:00)
[2022-05-01 05:05] LABS: Phosphorus 2.1 mg/dL (2.3-4.7)
[2022-05-01 05:07] LABS: ALT (SGPT) 116 U/L (8-55); AST (SGOT) 176 U/L (5-34); Alkaline Phosphatase 377 U/L (40-110); Anion Gap 15 mmol/L (10-20); BUN (Urea Nitrogen) 57 mg/dL (8.4-25.7); Bilirubin, Total 0.5 mg/dL (0.2-1.2); Calc. Creatinine Clearance 58 mL/min (70-130); Calcium 8.1 mg/dL (7.8-10.44); Carbon Dioxide 23 mmol/L (23-31); Chloride 99 mmol/L (98-107); Estimated GFR 75; Globulin 3.2 g/dL (2.4-3.5); Glucose 111 mg/dL (80-115); Magnesium 1.9 mg/dL (1.6-2.6); Protein, Total 6.2 g/dL (5.8-8.1); Sodium 132 mmol/L (136-145)
[2022-05-01] MEDS ORDERED: Electrolyte Replacement Protocol 1 EACH FS SCH (07:30)
[2022-05-01] MEDS: Thiamine HCl 200 MG/2 ML VIAL SLOW IVP SCH (09:02)
[2022-05-01] MEDS: Fentanyl 100 MCG/2 ML VIAL SLOW IVP PRN ×2 (09:02→13:44)
[2022-05-01] MEDS: Pantoprazole 40 MG VIAL IVP SCH (09:02)
[2022-05-01] MEDS ORDERED: Magnesium 2 GM/50 ML(in water) 2 GM in Premix Bag 1 BAG IVPB SCH (10:00)
[2022-05-01 12:37] VITALS: BMI 21.1
[2022-05-01] MEDS ORDERED: Fentanyl 100 MCG/2 ML VIAL SLOW IVP PRN (14:05)
[2022-05-01] MEDS ORDERED: Gabapentin 300 MG CAP PO SCH (14:15)
[2022-05-01] MEDS: Nicotine 14 MG PATCH TD SCH (21:03)
[2022-05-01] MEDS: Morphine IR 10 MG/5 ML UDCUP PER TUBE PRN (21:16)
[2022-05-02] MEDS: Morphine IR 10 MG/5 ML UDCUP PER TUBE PRN ×3 (03:09→21:43)
[2022-05-02 05:27] LABS: Phosphorus 2.5 mg/dL (2.3-4.7)
[2022-05-02 05:44] LABS: Band 40 % (5-11); Hemoglobin 6.8 g/dL (14.0-18.0); Lymphocytes 1 % (21-51); MDiff Complete? YES; Mean Corpuscular HGB CONC 32.9 g/dL (32.0-36.0); Mean Corpuscular Hemoglobin 32.7 pg (27.0-31.0); Mean Corpuscular Volume 99.4 fL (78.0-98.0); Mean Platelet Volume 8.4 fL (7.4-10.4); Monocytes 14 % (0-10); Neutrophil 45 % (42-75); Platelet Count 54 thou/uL (130-400); Platelet Morphology Comment Appears Decreased; RBC Distribution Width 14.5 % (11.5-14.5); Red Blood Cell (RBC) Count 2.09 mill/uL (4.70-6.10); White Blood Cell (WBC) Count 2.5 thou/uL (4.8-10.8)
[2022-05-02 06:04] LABS: ALT (SGPT) 105 U/L (8-55); AST (SGOT) 117 U/L (5-34); Albumin 2.9 g/dL (3.4-4.8); Alkaline Phosphatase 332 U/L (40-110); Anion Gap 16 mmol/L (10-20); BUN (Urea Nitrogen) 55 mg/dL (8.4-25.7); Bilirubin, Total 0.4 mg/dL (0.2-1.2); Calc. Creatinine Clearance 72 mL/min (70-130); Calcium 7.4 mg/dL (7.8-10.44); Carbon Dioxide 22 mmol/L (23-31); Chloride 103 mmol/L (98-107); Estimated GFR 95; Globulin 2.6 g/dL (2.4-3.5); Glucose 113 mg/dL (80-115); Magnesium 2.3 mg/dL (1.6-2.6); Potassium 5.1 mmol/L (3.5-5.1); Protein, Total 5.5 g/dL (5.8-8.1); Sodium 136 mmol/L (136-145)
[2022-05-02] MEDS: Gabapentin 300 MG CAP PO SCH ×2 (09:15→21:44)
[2022-05-02] MEDS: Thiamine HCl 200 MG/2 ML VIAL SLOW IVP SCH (09:53)
[2022-05-02] MEDS: Pantoprazole 40 MG VIAL IVP SCH (09:54)
[2022-05-02 13:25] LABS: Hemoglobin 7.7 g/dL (14.0-18.0)
[2022-05-02] MEDS: Nicotine 14 MG PATCH TD SCH (21:04)
[2022-05-03 06:54] LABS: #Lymphocytes 0.5 thou/uL (1.20-3.40); #Monocytes 0.4 thou/uL (0.11-0.59); #Neutrophils 2.4 thou/uL (1.40-6.50); %Basophils 0.2 % (0.0-1.0); %Eosinophils 0.3 % (0.0-10.0); %Lymphocytes 14.2 % (21.0-51.0); %Monocytes 12.8 % (0.0-10.0); %Neutrophils 72.4 % (42.0-75.0); Hemoglobin 7.6 g/dL (14.0-18.0); Mean Corpuscular HGB CONC 31.1 g/dL (32.0-36.0); Mean Corpuscular Hemoglobin 29.4 pg (27.0-31.0); Mean Corpuscular Volume 94.6 fL (78.0-98.0); Mean Platelet Volume 9.8 fL (7.4-10.4); Platelet Count 46 thou/uL (130-400); RBC Distribution Width 19.1 % (11.5-14.5); White Blood Cell (WBC) Count 3.3 thou/uL (4.8-10.8)
[2022-05-03 07:11] LABS: Phosphorus 2.3 mg/dL (2.3-4.7)
[2022-05-03 07:12] LABS: ALT (SGPT) 101 U/L (8-55); AST (SGOT) 96 U/L (5-34); Albumin 2.9 g/dL (3.4-4.8); Alkaline Phosphatase 362 U/L (40-110); Anion Gap 13 mmol/L (10-20); BUN (Urea Nitrogen) 45 mg/dL (8.4-25.7); Bilirubin, Total 0.5 mg/dL (0.2-1.2); Calc. Creatinine Clearance 76 mL/min (70-130); Calcium 8.1 mg/dL (7.8-10.44); Carbon Dioxide 24 mmol/L (23-31); Chloride 104 mmol/L (98-107); Estimated GFR 97; Globulin 3.3 g/dL (2.4-3.5); Glucose 118 mg/dL (80-115); Protein, Total 6.2 g/dL (5.8-8.1); Sodium 136 mmol/L (136-145)
[2022-05-03] MEDS ORDERED: Magnesium 2 GM/50 ML(in water) 2 GM in Premix Bag 1 BAG IVPB SCH (08:00)
[2022-05-03 08:23] VITALS: BP 100/63; TEMP 97.4
[2022-05-03] MEDS: Thiamine HCl 200 MG/2 ML VIAL SLOW IVP SCH (08:29)
[2022-05-03] MEDS: Gabapentin 300 MG CAP PO SCH (08:30)
[2022-05-03] MEDS: Pantoprazole 40 MG VIAL IVP SCH (08:30)
[2022-05-03] MEDS: Morphine IR 10 MG/5 ML UDCUP PER TUBE PRN (08:31)
== END 2022-05-03 12:00 | DRG 808 ==
LOC: ERS 17:18 → MSONC 20:54
PROVIDERS: ADMIT Family Medicine; ATTEND Family Medicine
PROC: 30233N1 Transfusion of Nonautologous Red Blood Cells into Peripheral Vein, Percutaneous Approach (ICD-10-PCS; principal; 2022-04-19)
PROC: 6A550Z2 Pheresis of Platelets, Single (ICD-10-PCS; 2022-04-20)
PROC: 02HV33Z Insertion of Infusion Device into Superior Vena Cava, Percutaneous Approach (ICD-10-PCS; 2022-04-22)
PROC: B548ZZA Ultrasonography of Superior Vena Cava, Guidance (ICD-10-PCS; 2022-04-22)
PROC: B5181ZA Fluoroscopy of Superior Vena Cava using Low Osmolar Contrast, Guidance (ICD-10-PCS; 2022-04-22)
DX: D61.810 Antineoplastic chemotherapy induced pancytopenia (principal); J96.01 Acute respiratory failure with hypoxia; K94.23 Gastrostomy malfunction; C78.00 Secondary malignant neoplasm of unspecified lung; C15.9 Malignant neoplasm of esophagus, unspecified; C78.7 Secondary malignant neoplasm of liver and intrahepatic bile duct; E44.0 Moderate protein-calorie malnutrition; M84.48XA Pathological fracture, other site, initial encounter for fracture; C77.2 Secondary and unspecified malignant neoplasm of intra-abdominal lymph nodes; C77.1 Secondary and unspecified malignant neoplasm of intrathoracic lymph nodes; C79.51 Secondary malignant neoplasm of bone; L03.311 Cellulitis of abdominal wall; J44.1 Chronic obstructive pulmonary disease with (acute) exacerbation; K94.22 Gastrostomy infection; Z51.5 Encounter for palliative care; C09.9 Malignant neoplasm of tonsil, unspecified; T45.1X5A Adverse effect of antineoplastic and immunosuppressive drugs, initial encounter; G62.9 Polyneuropathy, unspecified; Z60.2 Problems related to living alone; E87.6 Hypokalemia; E83.42 Hypomagnesemia; D72.829 Elevated white blood cell count, unspecified; F17.210 Nicotine dependence, cigarettes, uncomplicated; K62.89 Other specified diseases of anus and rectum; K52.9 Noninfective gastroenteritis and colitis, unspecified; E83.39 Other disorders of phosphorus metabolism; I10 Essential (primary) hypertension; R77.8 Other specified abnormalities of plasma proteins; Z20.822 Contact with and (suspected) exposure to COVID-19; Z98.890 Other specified postprocedural states; Z79.899 Other long term (current) drug therapy; Z71.6 Tobacco abuse counseling; Z79.51 Long term (current) use of inhaled steroids; Z90.89 Acquired absence of other organs
CPT/HCPCS: 36415; 36416; 36430; 36569; 71045; 71275; 74177; 80053; 82553; 83690; 83735; 83880; 84100; 84443; 84484; 85025; 85610; 85730; 86850; 86900; 86901; 87324; 87449; 87505; 93005; 94640; 94760; 96374; 97139; C1751; C9113; J0690; J1642; J1644; J1940; J3010; J3411; J3475; J3480; J3490; J7050; J7120; J7620; P9016; P9035; Q9967; U0003; U0005